=== PATIENT | female | born 1980 | race Caucasian/White ===

== ENCOUNTER 2017-04-11 18:53 | Emergency (ER) | payer OTHER ==
[~2017-04-11] VITALS: Ht 167.6 cm; Wt 48.9 kg
[~2017-04-11 18:53] MED LIST: ALBUAER INH; ATEN-173 PO; BIOT1CAP3 PO; CEPH500C2 PO; CLOB-65 TOP; CYAN500S5 PO; DEXL30CA5 PO; MESA1CAP2 PO; NAPR1TAB9 PO; SALM50AE2 INH; SULF-302 PO; TIOTCAP INH
[2017-04-11 19:06] VITALS: TEMP 36.6; O2SAT 95; Ht 167.6 cm; Wt 48.9 kg
--- NOTE | 2017-04-11 20:11 | DIAGNOSTIC IMAGING REPORT ---
LEFT FOOT 3 VIEWS CLINICAL HISTORY: Left foot pain. FINDINGS: 3 views of the left foot are obtained. No prior studies are available for comparison at the time of dictation. The skeletal structures are well mineralized. No fracture is seen. The joint spaces of the foot are well-maintained. The overlying soft tissues are within normal limits. IMPRESSION: No acute bony abnormality is identified in the left foot. Electronically signed by: Isrrael Bloom M.D. 04/11/2017 8:10 PM Dictated Date/Time: 04/11/2017 8:09 PM
--- NOTE | 2017-04-11 20:26 | EMERGENCY ROOM VISIT NOTE ---
History First contact with patient: 19:17 Chief Complaint: FOOT PAIN Stated Complaint: LT FOOT SWOLLEN, MIDDLE TOE PAIN History of Present Illness The patient is a 37 year old female who presents to the Emergency Room via private vehicle with complaints of "left foot swollen, middle toe pain". The patient states that about a week ago she began with left foot swelling and tenderness between the middle toes of her left foot. She notes that it feels like needles. She states at times it radiated to her knee. She denies any chest pain, shortness of breath, fevers, chills, night sweats, nausea, vomiting or injury. She denies any anticoagulant use. There is no history of DVT. No history of alcohol or drug use. She rates her overall pain currently as a 7/10. Review of Systems A complete 6-point Review of Systems was discussed with the patient, with pertinent positives and negatives listed in the History of Present Illness. All remaining Review of Systems questions can be considered negative unless otherwise specified. Past Medical/Surgical History Medical Problems: (1) Anemia Nos (2) Asthma, Unspecified (3) Intestinal Abscess (4) Intestinal Fistula (5) Rheumatoid Arthritis Family History Cancer Diabetes mellitus FH: heart disease FATHER Hypertension Social History Smoking Status: Current Every Day Smoker Alcohol Use: none Drug Use: none Marital Status: in relationship Housing Status: lives with significant other Occupation Status: disabled Current/Historical Medications Scheduled Atenolol (Tenormin), 25 MG PO QAM B-Complex Vitamins (Vitamin B Complex), 1 TAB PO DAILY Bioflavonoid Products (Vitamin C), 1 TAB PO DAILY Calcium & Phosphorus W/ Vitami (Citracal Calcium Gummies), 1 TAB PO DAILY Cholecalciferol (Vitamin D), 400 INTER.UNIT PO DAILY Cyanocobalamin (Vitamin B-12), 500 MCG PO DAILY Dexlansoprazole (Dexilant), 30 MG PO DAILY Mesalamine (Delzicol), 4 CAP PO QID Pediatric Multiple Vitamin W/ (Flintstones Chewable), 1 TAB PO HS Salmeterol Xinafoate (Serevent Diskus), 1 PUFF INH Q12 Vitamin A-Beta Carotene (Vitamin A), 1 TAB PO DAILY Vitamin E (Vitamin E), 400 INTER.UNIT PO DAILY Scheduled PRN Albuterol Hfa (Ventolin Hfa), 2 PUFFS INH Q6H PRN for SOB/Wheezing Naproxen (Aleve), 440 MG PO for Pain Physical Exam Vital Signs Date Time Temp Pulse Resp B/P (MAP) Pulse Ox O2 Delivery O2 Flow Rate FiO2 04/11/17 22:25 82 110/68 04/11/17 19:06 36.6 112 20 102/65 95 Room Air Physical Exam VITAL SIGNS - Vital signs and nursing notes were reviewed. Stable. Tachycardic. GENERAL -37-year-old female appearing her stated age who is in no acute distress. Communicates well with provider and answers questions appropriately. SKIN - Without rashes. No petechial rashes. There is a faint erythema to a localized 3 cm in diameter region overlying the anterior aspect of the patient' s left middle toes on the foot. There is no warmth. No red streaking. EXTREMITIES - No clubbing or peripheral cyanosis. No pretibial edema present. There is tenderness to palpation between the digits of the left third and fourth toes. She is neurovascularly intact in this region. The tenderness is on the plantar aspect as well as the anterior aspect of the foot. +5/5 strength noted in UE/LE bilaterally. Medical Decision & Procedures ER Provider Diagnostic Interpretation: LEFT FOOT 3 VIEWS CLINICAL HISTORY: Left foot pain. FINDINGS: 3 views of the left foot are obtained. No prior studies are available for comparison at the time of dictation. The skeletal structures are well mineralized. No fracture is seen. The joint spaces of the foot are well-maintained. The overlying soft tissues are within normal limits. IMPRESSION: No acute bony abnormality is identified in the left foot. Electronically signed by: Isrrael Bloom M.D. 04/11/2017 8:10 PM Dictated Date/Time: 04/11/2017 8:09 PM ULTRASOUND LEFT LOWER EXTREMITY VENOUS CLINICAL HISTORY: Left calf pain. COMPARISON STUDY: No priors. TECHNIQUE: Real-time, grayscale, and color Doppler sonography of the deep veins of the left lower extremity was performed from the inguinal crease to the calf. Compression and augmentation were utilized. FINDINGS: There is no sonographic evidence of deep venous thrombosis identified in the left lower extremity. The common femoral, superficial femoral, and popliteal veins are patent and normally compressible. The greater saphenous vein and the profunda femoris vein at the junction with the common femoral vein are clear. The visualized calf veins are patent. IMPRESSION: There is no sonographic evidence of deep venous thrombosis identified in the left lower extremity. Electronically signed by: Isrrael Bloom M.D. 04/11/2017 9:31 PM Dictated Date/Time: 04/11/2017 9:30 PM Medical Decision Patient was seen and evaluated as above. She presents to us today with left foot pain. On exam I'm concerned that she likely has a Steiner's neuroma. X- ray reveals no fracture or dislocation. Ultrasound was negative for DVT. She' ll be treated conservatively. She'll be given crutches and postop shoe to be nonweightbearing. She is to follow with her family doctor. She was educated upon management, educated upon worrisome symptoms which to return, had questions answered prior to discharge, and was discharged home in good condition. On exam there is no evidence to support a cellulitic or infection as there is no break in the integument, and the redness the patient notes has not progressed over the past few days. There are no fevers or chills. In evaluation treatment this patient following differential diagnoses were entertained: Fracture, dislocation, Steiner's neuroma, sialitis DVT, among others. Impression Primary Impression: Foot pain Additional Impression: Steiner's neuroma of left foot Departure Information Dispostion Home / Self-Care Condition GOOD Referrals Kathy Stoddard D.O. (PCP) Marito Teresa D.O. Patient Instructions My [facility] Additional Instructions You have been treated in the Emergency Department for a L foot pain. . For pain control, you can use the following [id number] medicines (if >12 yo): - Regular strength (325mg/tab) Tylenol (acetaminophen) 2 tabs every 4-6 hours as needed. Do not exceed 12 tablets in a 24 hour period. Avoid taking more than 3 grams (3000 mg) of Tylenol per day. This includes any other sources of acetaminophen you may take on a regular basis. - Regular strength (200 mg/tab) Advil (ibuprofen) 1-2 tabs every 4-6 hours as needed. Do not exceed a dose of 3200 mg per day. If this is a recent injury (<24 hrs), ice can be applied to the area of pain for the first 3 days to help decrease pain and inflammation. You have been provided the number for an Orthopaedic Surgeon. You should call this number as soon as possible to establish a follow-up visit from today's Emergency Department visit. Keep the foot brace/splint in place until cleared by Orthopedics. Use the crutches you have been provided to keep ALL weight off of the ankle until weight bearing is tolerable. Return to the Emergency Department if your current symptoms worsen despite treatment course outlined above, or if you develop any of the following symptoms : intractable pain despite aforementioned treatment course or new onset of numbness or tingling of the foot. Problem Qualifiers
[2017-04-11] MEDS ORDERED: CALC1CHW24 PO (21:16)
[2017-04-11] MEDS ORDERED: PEDICHW50 PO (21:16)
[2017-04-11] MEDS ORDERED: CHOL400T PO (21:25)
[2017-04-11] MEDS ORDERED: VITATAB19 PO (21:25)
[2017-04-11] MEDS ORDERED: B-COTAB18 PO (21:25)
[2017-04-11] MEDS ORDERED: VITA1TAB4 PO (21:25)
[2017-04-11] MEDS ORDERED: BIOF500C2 PO (21:25)
--- NOTE | 2017-04-11 21:32 | DIAGNOSTIC IMAGING REPORT ---
ULTRASOUND LEFT LOWER EXTREMITY VENOUS CLINICAL HISTORY: Left calf pain. COMPARISON STUDY: No priors. TECHNIQUE: Real-time, grayscale, and color Doppler sonography of the deep veins of the left lower extremity was performed from the inguinal crease to the calf. Compression and augmentation were utilized. FINDINGS: There is no sonographic evidence of deep venous thrombosis identified in the left lower extremity. The common femoral, superficial femoral, and popliteal veins are patent and normally compressible. The greater saphenous vein and the profunda femoris vein at the junction with the common femoral vein are clear. The visualized calf veins are patent. IMPRESSION: There is no sonographic evidence of deep venous thrombosis identified in the left lower extremity. Electronically signed by: Isrrael Bloom M.D. 04/11/2017 9:31 PM Dictated Date/Time: 04/11/2017 9:30 PM
[2017-04-11] MEDS ORDERED: VNTHFA/IN INH (21:44)
[2017-04-11] MEDS ORDERED: SRVDIN60 INH (21:44)
[2017-04-11] MEDS ORDERED: ASC400 PO (21:44)
[2017-04-11 22:25] VITALS: BP 110/68; PULSE 82
== END 2017-04-11 22:25 | disposition home or self-care (01) ==
LOC: C.EDB 18:55 → C.EDD 22:25
DX: G57.62 Lesion of plantar nerve, left lower limb (principal); M79.672 Pain in left foot; M79.89 Other specified soft tissue disorders; F17.210 Nicotine dependence, cigarettes, uncomplicated; Z79.899 Other long term (current) drug therapy; J45.909 Unspecified asthma, uncomplicated; M06.9 Rheumatoid arthritis, unspecified

== ENCOUNTER 2018-09-23 17:05 | Inpatient (IN) ==
--- OUTSIDE RECORDS SUMMARY | 2018-09-23 17:08 | External Medical Summary | Continuity of Care Document ---
:1980 Author Name Iraida Harper, Provider Address Unavailable Unavailable , Care Team Providers Name Role Phone Case Lucho MEYER Unavailable [email or web address], [email or web address] Unavailable Unavailable Unavailable Unavailable Unavailable Problems Active medical history not documented Allergies and Adverse Reactions Allergy history not documented Medications Medications not documented Procedures Procedures not documented Immunizations Immunizations not documented Plan of Treatment Planned Observations Planned Goals not documented Results No Known Results Results not documented
[2018-09-23] MEDS ORDERED: ALBUT/IPRATROP 3MG/0.5MG NEB 3 ML VIAL NEB STA (17:26)
[2018-09-23 17:55] LABS: Basophils # (auto) 0.08 K/uL (0-0.2); Basophils % (auto) 1.4 %; Eosinophils # (auto) 0.12 K/uL (0-0.5); Eosinophils % (auto) 2.2 %; Hematocrit (blood only) 46.6 % (37-47); Hemoglobin 15.6 g/dL (12.0-16.0); Immature Granulocytes # (auto) 0.01 K/uL (0.00-0.02); Immature Granulocytes % (auto) 0.2 %; Lymphocytes # (auto) 0.98 K/uL (1.2-3.4); Lymphocytes % (auto) 17.7 %; Mean Corpuscular Hgb Conc 33.5 g/dL (32-36); Mean Corpuscular Volume 88.9 fL (80-100); Mean Platelet Volume 9.5 fL (7.4-10.4); Monocytes # (auto) 0.49 K/uL (0.11-0.59); Monocytes % (auto) 8.9 %; Neutrophils # (auto) 3.85 K/uL (1.4-6.5); Neutrophils % (auto) 69.6 %; Platelet Count 282 K/uL (130-400); RDW Coefficient of Variation 15.6 % (11.5-14.5); RDW Standard Deviation 51.4 fL (36.4-46.3); Red Blood Count 5.24 M/uL (4.2-5.4); White Blood Count 5.53 K/uL (4.8-10.8)
[2018-09-23 18:15] LABS: Albumin Level 3.7 gm/dl (3.4-5.0); Calcium 9.5 mg/dl (8.5-10.1); Est GFR (African American) 132.1; Potassium 3.7 mmol/L (3.5-5.1)
[2018-09-23 18:18] LABS: Albumin Globulin Ratio 0.9 (0.9-2); Bilirubin,Total 0.4 mg/dl (0.2-1); Globulin 4.1 gm/dl (2.5-4.0); Total Protein 7.8 gm/dl (6.4-8.2)
--- NOTE | 2018-09-23 18:55 | XRay Report ---
XR chest 2V routine CLINICAL HISTORY: Chest Pain eval for pna COMPARISON STUDY: No previous studies for comparison. FINDINGS: Emphysematous change. No focal infiltrate. No evidence for pneumothorax. Flattened diaphrag ms. IMPRESSION: Emphysematous change. No acute process. The above report was generated using voice recognition software. It may contain grammatical, syntax or spelling errors. Electronically signed by: Adolfo Desir M.D. 09/23/2018 6:53 PM
[2018-09-23] MEDS ORDERED: NITROGLYCERIN 2% OINTMENT 30GM TUBE EXT STA (20:16)
[2018-09-23] MEDS ORDERED: ALBUTEROL HFA 8 GM INHALER INH PRN (22:33)
[2018-09-23] MEDS ORDERED: NITROGLYCERIN SL 0.4 MG/TAB TAB SL PRN (22:33)
[2018-09-23] MEDS ORDERED: ACETAMINOPHEN 325 MG TAB PO PRN (22:33)
--- NOTE | 2018-09-23 23:37 | History and Physical Report ---
DATE OF ADMISSION: 09/23/2018 CHIEF COMPLAINT: Chest pain and weight loss. HISTORY OF PRESENT ILLNESS: This is a 38-year-old female with past medical history significant for severe COPD, Crohn's disease with complication of small and large intestine fistula, status post colostomy, migraines, bipolar 1 disorder, ongoing tobacco use disorder, history of renal calculi, history of hypertension, who presents with chest pain starting last night. The patient states chest pain which is all over the chest, radiating to the back, about 8/10 in severity. She was resting when this happened and it was not getting better, so she came to the ER. She is also losing weight since June, she has gone from 95 pounds to 73 pounds and her home health nurse advised to come to the hospital. Denies any nausea, vomiting. No sweating, no dizziness, no headache, no blurred visions. No ear ache, no runny nose, no sore throat, no difficulty swallowing. Appetite is good. She is actually eating fine. No nausea, no abdominal pain. Normal bowel and bladder movements. No blood in the stools or black stools, no hematuria, no burning micturition. No swelling of the legs. Ambulates okay. Lives with her . She is on mesalamine and Remicade every 6 weeks for Crohn's disease, but she has not taken Remicade since last April because her car broke and she has no transport available. She has a rash around the colostomy bag she says since March and she is following with dermatology and treated for dermatitis and also for fungal infection and bacterial infection, but that is not getting better. There is question of skin cancer, but nothing mentioned about in EPIC.. Next appointment with dermatology seems to be in November 2018. She says she is losing weight though she is eating okay since last June. Denies any fever or chills. Has chronic cough, but does not bring any phlegm out. Currently resting comfortably and hemodynamically stable. Nitro paste helped chest pain. Her first point of care troponin was negative, her second point of care troponin came back elevated at 0.06. ALLERGIES: CODEINE, METRONIDAZOLE, CIPRO, LATEX, PENICILLIN, ASPIRIN. PAST MEDICAL HISTORY: As mentioned above. PAST SURGICAL HISTORY: Colonoscopy with biopsy, colostomy, ligation of oviduct, partial colectomy with exploratory laparotomy with lysis of adhesions, right hemicolectomy with primary anastomosis, drainage of abdominal wall abscess left lower quadrant, removal of rectum and colon in 2013. MEDICATIONS: The patient is currently on atenolol 25 mg p.o. daily, Incruse Ellipta 62.5 mcg inhalation 1 puff daily, Remicade infusions every 6 weeks, mesalamine DR 1600 mg p.o. t.i.d., Ventolin 2 puffs every 4 hours p.r.n., gabapentin 300 mg p.o. at bedtime, Zoloft 25 mg p.o. daily, Imitrex p.r.n., triamcinolone ointment apply to rash to stomach 2 times daily, Breo Ellipta 1 puff inhalation daily, oxygen as directed, prazosin 2 mg daily, Seroquel 25 mg p.o. daily, vitamin C daily, vitamin D 400 units daily, vitamin E 400 units daily. FAMILY HISTORY: Significant for father has hypertension; mother has hypertension, bipolar depression; brother has anemia; maternal grandfather has asthma; son has seizures. SOCIAL HISTORY: She is , lives with her . Smokes half pack a day for the last 24 years. No alcohol use, no drug use. REVIEW OF SYMPTOMS: As per HPI. Rest of the review of systems negative. PHYSICAL EXAMINATION: GENERAL: Reveals the patient to be thin and frail, not in acute distress. VITAL SIGNS: Temperature is afebrile, pulse 74, respiratory rate 20, blood pressure 106/61, oxygen 99% on 2 liters. HEENT: No pallor, no icterus. Pupils equal, round, reactive to light. NECK: No JVD, no neck masses, no carotid bruits. CARDIOVASCULAR: S1, S2 heard, regular rate and rhythm, no murmur, no gallop. RESPIRATORY SYSTEM: Normal AP diameter. No accessory muscle use. No wheezing, no crackles. ABDOMEN: Soft, bowel sounds present. No distention. Erythematous indurated rash seen around the colostomy bag. EXTREMITIES: No edema, no erythema. LABORATORY DATA: WBC 5.5, hemoglobin 15.6, hematocrit 46.6, platelets 282. Sodium 142, potassium 3.6, chloride 107, bicarbonate 29, BUN 6, creatinine 0.6, serum glucose 81, calcium 9.5, total bilirubin 0.4, AST 17, ALT 12, alkaline phosphatase 68, lipase 96. IMAGING DATA: Chest x-ray: Emphysematous change, no acute process. EKG: Normal sinus rhythm with sinus arrhythmia at the rate of 70. No significant change from previous EKG. ASSESSMENT AND PLAN: This is a 38-year-old female who presents with chest pain and also weight loss. 1. Chest pain. All over chest radiating to her back, going on since the last night. Nitro is helping. EKG is unremarkable. Point of care troponin is 0.06. We will follow serial cardiac enzymes.if trending up will place on IV heparin. We will also get echo. Cardiac consult in the a.m. We will keep n.p.o. after midnight. Closely monitor. We will also get CTA of the the chest to rule out any other causes. 2. Weight loss. The patient has Crohn's disease, on Remicade and mesalamine, status post colostomy. Did not take Remicade since last April. Lost weight about 15 to 16 pounds since last June. We will consult GI. We will follow with CAT scan of abdomen and pelvis as there is also skin rash surrounding the colostomy bag of unclear etiology. 3. Skin rash surrounding colostomy bag. Follows with dermatology. Treated for atopic dermatitis and also for infection, but nothing is working. Needs close followup with dermatology and may need biopsy. 4. History of nightmares On prazosin. 5. History of severe chronic obstructive pulmonary disease, still smokes and needs counseling. Continue home inhalers. Currently stable. 6. History of Crohn's disease, mesalamine and Remicade, not taken the Remicade since last April. Consult GI for further recommendations. 7. History of hypertension, continue atenolol. 8. History of migraine, Imitrex p.r.n. 9. Bipolar disorder, continue her home Seroquel. 10. Deep venous thrombosis prophylaxis, sequential compression devices for now. 11. Disposition: Observation in med/surg tele. Level 1 full code. MTDD
--- NOTE | 2018-09-23 23:45 | Emergency Department Note ---
Entered by Cindy Horton acting as a scribe for History of Present Illness General Chief complaint: Chest Pain Stated complaint: CHEST PAIN Source: patient History of Present Illness Onset (ago): day(s) 2 Location: chest Radiation: back Severity: similar to prior episodes Pain Consistency: + intermittent Current Pain Intensity: 7 Quality: + sharp and + other (tight) Relieved By: not by medication (Nitro ) Exacerbated By: + other (cough) Associated symptoms: + cough (dry), + shortness of breath and + other (negative leg swelling or pain; ) Treatments prior to arrival: other (Nitro) The patient is a 38 year old female who presents to the Emergency Room with complaints of intermittent chest pain that began 2 days prior to arrival. The patient describes this pain as tight and sharp, and states that this radiates to her back. She rates her pain at a 7/10. The patient states that her episodes of chest pain last for about an hour. She states that she received Nitro by EMS, but states that this did not relieve her symptoms. The patient states that this is similar to a prior episode of symptoms about one year ago, and states that this resolved on its own. She states that she is short of breath currently. The patient states that her symptoms are exacerbated by coughing. The patient states that she currently has a dry cough. She denies leg swelling or pain, vomiting, abdominal pain, and blood in her stool.The patient states that she had a previous "slight heart attack" in 2010 and states that her father of a heart attack at the age of 52. She states that she never had a cardiac catheterization, but states that she had a normal stress test at that time. The patient states that her home health nurse wanted her to be evaluated by her GI doctor as she has been losing weight recently and her ileostomy bag has been leaking since June. The patient states that she has a history of COPD and asthma, and states that she is on 2L of oxygen as needed. Home Medications Home Medications Medication Instructions Recorded Confirmed Type albuterol sulfate [Ventolin HFA] 2 puff INHALATION Q6H PRN 09/23/18 09/23/18 History ascorbic acid (vitamin C) [Vitamin 0 mg PO DAILY 09/23/18 09/23/18 History C] atenolol 25 mg PO QAM 09/23/18 09/23/18 History calcium-vitamin D3-vitamin K 1 tab PO DAILY 09/23/18 09/23/18 History [Citracal Chew] cholecalciferol (vitamin D3) 400 unit PO DAILY 09/23/18 09/23/18 History [Vitamin D3] cyanocobalamin (vitamin B-12) 500 mcg PO DAILY 09/23/18 09/23/18 History [Vitamin B-12] dexlansoprazole [Dexilant] 30 mg PO DAILY 09/23/18 09/23/18 History fluticasone furoate-vilanterol 1 inh INHALATION DAILY 09/23/18 09/23/18 History [Breo Ellipta] gabapentin 300 mg PO HS 09/23/18 09/23/18 History hydroxyzine pamoate [Vistaril] 25 mg PO TID PRN 09/23/18 09/23/18 History infliximab [Remicade] 0 mg IV UD 09/23/18 09/23/18 History mesalamine [Delzicol] 1,600 mg PO TID 09/23/18 09/23/18 History pediatric multivitamin no.49 1 tab PO HS 09/23/18 09/23/18 History [Flintstones Gummies] prazosin 2 mg PO HS 09/23/18 09/23/18 History quetiapine 25 mg PO HS 09/23/18 09/23/18 History quetiapine 200 mg PO HS 09/23/18 09/23/18 History sertraline [Zoloft] 25 mg PO QAM 09/23/18 09/23/18 History sumatriptan succinate 50 mg PO UD PRN 09/23/18 09/23/18 History vitamin A 0 unit PO DAILY 09/23/18 09/23/18 History vitamin B complex 1 tab PO DAILY 09/23/18 09/23/18 History vitamin E 400 unit PO DAILY 09/23/18 09/23/18 History Allergies Allergy/AdvReac Type Severity Reaction Status Date / Time codeine Allergy Severe SOB, Verified 09/23/18 18:21 NAUSEA -- MORPHINE OK, TAKES LORTAB AT HOME metronidazole Allergy Severe chest pain Verified 09/23/18 18:21 Cipro Allergy Unknown "I GET Verified 04/20/15 21:21 SICK AND CAN'T BREATHE RIGHT." ciprofloxacin Allergy Unknown "I GET Verified 09/23/18 18:21 SICK AND CAN'T BREATHE RIGHT." latex Allergy Unknown RASH Verified 09/23/18 18:21 Penicillins Allergy Unknown CHEST Unverified 09/23/18 18:21 TIGHTNESS aspirin AdvReac Mild GI DISTRESS Verified 09/23/18 18:21 IRON INFUSIONS Allergy Unknown Chest Uncoded 09/23/18 18:21 tightness and SOB. Past Med/Surg History Medical History Crohn's disease (Chronic) Social History Beliefs That Will Affect Care: None Current Living Situation: Spouse Other Information That Helps Us Care for You: No Feels Safe at Home: Yes Safety Concerns: Feels Safe At This Time Smoking Status: Current every day smoker Tobacco Type: cigarettes Cigarettes Per Day: 12 Do You Dip or Chew Tobacco: No Tobacco Cessation Education Requested by Patient: No Hx Alcohol Use: No Hx Substance Use: No Review of Systems See HPI for pertinent positives & negatives. and A total of 10 systems reviewed and were otherwise negative Physical Exam Vital Signs Vital Signs - 24 hr 09/23/18 17:10 09/23/18 17:13 09/23/18 17:20 Sepsis Recent Fever Within 48 Hours Sepsis Action Taken by Nursing Pulse Rate 78 70 76 Pulse Rate from SpO2 Sensor 75 67 77 Respiratory Rate 17 20 20 Respiratory Effort / Characteristics Respiratory Depth Blood Pressure 124/82 Blood Pressure Mean 96 Pulse Oximetry 97 99 99 Oxygen Delivery Method Oxygen Flow Rate 09/23/18 17:23 09/23/18 17:30 09/23/18 17:31 Sepsis Recent Fever Within 48 Hours No Sepsis Action Taken by Nursing No Action Required Pulse Rate 66 77 Pulse Rate from SpO2 Sensor Respiratory Rate 18 21 Respiratory Effort / Characteristics Non-Labored Respiratory Depth Normal Blood Pressure 124/82 Blood Pressure Mean 96 Pulse Oximetry 98 98 Oxygen Delivery Method Room Air Nasal Cannula Oxygen Flow Rate 2 09/23/18 17:36 09/23/18 17:40 09/23/18 17:50 Sepsis Recent Fever Within 48 Hours Sepsis Action Taken by Nursing Pulse Rate 69 77 Pulse Rate from SpO2 Sensor 70 77 Respiratory Rate 16 23 25 H Respiratory Effort / Characteristics Non-Labored Spontaneous Respiratory Depth Blood Pressure Blood Pressure Mean Pulse Oximetry 100 100 100 Oxygen Delivery Method Nasal Cannula Oxygen Flow Rate 2 09/23/18 18:00 09/23/18 18:10 09/23/18 18:20 Sepsis Recent Fever Within 48 Hours Sepsis Action Taken by Nursing Pulse Rate 77 79 77 Pulse Rate from SpO2 Sensor 78 80 76 Respiratory Rate 26 H 23 21 Respiratory Effort / Characteristics Respiratory Depth Blood Pressure Blood Pressure Mean Pulse Oximetry 100 99 100 Oxygen Delivery Method Oxygen Flow Rate 09/23/18 18:30 09/23/18 18:49 09/23/18 18:50 Sepsis Recent Fever Within 48 Hours Sepsis Action Taken by Nursing Pulse Rate 75 72 80 Pulse Rate from SpO2 Sensor 73 69 81 Respiratory Rate 16 20 21 Respiratory Effort / Characteristics Respiratory Depth Blood Pressure Blood Pressure Mean Pulse Oximetry 99 99 99 Oxygen Delivery Method Oxygen Flow Rate 09/23/18 18:55 09/23/18 19:00 09/23/18 19:30 Sepsis Recent Fever Within 48 Hours Sepsis Action Taken by Nursing Pulse Rate 78 83 80 Pulse Rate from SpO2 Sensor 81 78 79 Respiratory Rate 22 21 26 H Respiratory Effort / Characteristics Respiratory Depth Blood Pressure 117/75 Blood Pressure Mean 89 Pulse Oximetry 99 97 99 Oxygen Delivery Method Oxygen Flow Rate 09/23/18 20:00 09/23/18 20:26 09/23/18 20:30 Sepsis Recent Fever Within 48 Hours Sepsis Action Taken by Nursing Pulse Rate 92 H 74 Pulse Rate from SpO2 Sensor 91 H 76 72 Respiratory Rate 29 H 22 20 Respiratory Effort / Characteristics Respiratory Depth Blood Pressure 116/74 106/61 Blood Pressure Mean 88 76 Pulse Oximetry 98 99 99 Oxygen Delivery Method Oxygen Flow Rate Constitutional: Vital signs reviewed. Eyes: Pupils are equal round reactive to light. Conjunctiva are noninjected. ENT: Pharynx is clear without erythema or exudate. Mucous membranes are moist. Neck supple without meningeal signs. Respiratory: Scattered expiratory wheezing bilaterally. Breath sounds are equal bilaterally. Cardiovascular: Regular rate and rhythm. No rubs or gallops. GI: Soft, nondistended and nontender. Bowel sounds are present. Ileostomy in right lower quadrant with surrounding erythema with satellite lesions and scaling with well-demarcated borders. Musculoskeletal: No peripheral edema. No lower extremity tenderness. Integumentary: No cyanosis. Neurological: The patient is awake and alert. No focal deficits. Psychiatric: Normal affect. Course 171: Past medical records reviewed. The patient was evaluated in room C12B. A complete history and physical exam was performed. 1918: Upon reevaluation, the patient has minimal wheezing. She states that she has very slight chest pain at this time. I discussed her test results with her. She states that her rash has been there for a very long time. The patient states that she has seen a Hair Spring Cutter for this rash who has treated her for a fungal and bacterial infection, and is now concerned for skin cancer. The patient will follow up with this Hair [employer] Cutter for this rash. When the nurse went to replace the patient's ileostomy, it appeared to be functioning well so it was not replaced. 2026: I updated the patient on her test results. The patient is agreeable to further evaluation. 2028: I discussed the case with Dr. Estes Hospitalist who accepts the patient for further evaluation. Consultations Consultation #1: I discussed the case with Dr. Estes [facility] who accepts the patient for further evaluation. Time: 20:29 Administered Medications Discontinued Medications Albuterol (Duoneb) 3 ml NEB NOW STA Stop: 09/23/18 17:27 Last Admin: 09/23/18 17:35 Dose: 3 ml Documented by: [id number] Nitroglycerin (Nitro-Bid 2%) 1 inch EXT NOW STA Stop: 09/23/18 20:17 Last Admin: 09/23/18 20:27 Dose: 0.5 inch Documented by: [id number] Medical Decision Making Differential Diagnosis Differential diagnoses include pneumonia, pleurisy, COPD exacerbation, ACS, tinea coporis, bronchitis, and others were considered. Medical Records Attestation: I reviewed the patient's medical records. (No recent pertinent visits. ) Home Medications Current Medication List: was personally reviewed by me Laboratory Data Attestation: I reviewed the patient's lab results. Result diagrams: 09/23/18 17:42 09/23/18 17:42 Lab Results 09/23/18 09/23/18 09/23/18 Range/Units 17:42 17:42 17:48 WBC 5.53 (4.8-10.8) K/uL RBC 5.24 (4.2-5.4) M/uL Hgb 15.6 (12.0-16.0) g/dL Hct 46.6 (37-47) % MCV 88.9 (80-100) fL MCH 29.8 (25-34) pg MCHC 33.5 (32-36) g/dL RDW Std Deviation 51.4 H (36.4-46.3) fL RDW Coeff of Kaylan 15.6 H (11.5-14.5) % Plt Count 282 (130-400) K/uL MPV 9.5 (7.4-10.4) fL Immature Gran % (Auto) 0.2 % Neut % (Auto) 69.6 % Lymph % (Auto) 17.7 % [place] % (Auto) 8.9 % Eos % (Auto) 2.2 % Baso % (Auto) 1.4 % Immature Gran # (Auto) 0.01 (0.00-0.02) K/uL Neut # (Auto) 3.85 (1.4-6.5) K/uL Lymph # (Auto) 0.98 L (1.2-3.4) K/uL [place] # (Auto) 0.49 (0.11-0.59) K/uL Eos # (Auto) 0.12 (0-0.5) K/uL Baso # (Auto) 0.08 (0-0.2) K/uL Sodium 142 (136-145) mmol/L Potassium 3.7 (3.5-5.1) mmol/L Chloride 107 (98-107) mmol/L Carbon Dioxide 29 (21-32) mmol/L Anion Gap 6.0 (3-11) BUN 6 L (7-18) mg/dl Creatinine 0.60 (0.6-1.2) mg/dl Est Cr Clr Drug Dosing 70.0 ml/min Est GFR ( Amer) 132.1 Est GFR (Non-Af Amer) 114.0 BUN/Creatinine Ratio 10.0 (10-20) Glucose 81 (70-99) mg/dl Calcium 9.5 (8.5-10.1) mg/dl Total Bilirubin 0.4 (0.2-1) mg/dl AST 17 (15-37) U/L ALT 12 (12-78) U/L Alkaline Phosphatase 68 (45-117) U/L POC Troponin I < 0.03 (0-0.045) ng/ml Total Protein 7.8 (6.4-8.2) gm/dl Albumin 3.7 (3.4-5.0) gm/dl Globulin 4.1 H (2.5-4.0) gm/dl Albumin/Globulin Ratio 0.9 (0.9-2) Lipase 96 (73-393) U/L 09/23/18 Range/Units 19:50 WBC (4.8-10.8) K/uL RBC (4.2-5.4) M/uL Hgb (12.0-16.0) g/dL Hct (37-47) % MCV (80-100) fL MCH (25-34) pg MCHC (32-36) g/dL RDW Std Deviation (36.4-46.3) fL RDW Coeff of Kaylan (11.5-14.5) % Plt Count (130-400) K/uL MPV (7.4-10.4) fL Immature Gran % (Auto) % Neut % (Auto) % Lymph % (Auto) % [place] % (Auto) % Eos % (Auto) % Baso % (Auto) % Immature Gran # (Auto) (0.00-0.02) K/uL Neut # (Auto) (1.4-6.5) K/uL Lymph # (Auto) (1.2-3.4) K/uL [place] # (Auto) (0.11-0.59) K/uL Eos # (Auto) (0-0.5) K/uL Baso # (Auto) (0-0.2) K/uL Sodium (136-145) mmol/L Potassium (3.5-5.1) mmol/L Chloride (98-107) mmol/L Carbon Dioxide (21-32) mmol/L Anion Gap (3-11) BUN (7-18) mg/dl Creatinine (0.6-1.2) mg/dl Est Cr Clr Drug Dosing ml/min Est GFR ( Amer) Est GFR (Non-Af Amer) BUN/Creatinine Ratio (10-20) Glucose (70-99) mg/dl Calcium (8.5-10.1) mg/dl Total Bilirubin (0.2-1) mg/dl AST (15-37) U/L ALT (12-78) U/L Alkaline Phosphatase (45-117) U/L POC Troponin I 0.06 H (0-0.045) ng/ml Total Protein (6.4-8.2) gm/dl Albumin (3.4-5.0) gm/dl Globulin (2.5-4.0) gm/dl Albumin/Globulin Ratio (0.9-2) Lipase (73-393) U/L Imaging Data Radiologist's Impression: Radiology results as stated below per my review and the radiologist's interpretation: XR chest 2V routine CLINICAL HISTORY: Chest Pain eval for pna COMPARISON STUDY: No previous studies for comparison. FINDINGS: Emphysematous change. No focal infiltrate. No evidence for pneumothorax. Flattened diaphragms. IMPRESSION: Emphysematous change. No acute process. The above report was generated using voice recognition software. It may contain grammatical, syntax or spelling errors. Electronically signed by: Adolfo Desir M.D. 09/23/2018 6:53 PM ECG Data Attestation: I personally reviewed and interpreted this ECG as follows: Indication: chest pain Rate (beats per minute): 60 Rhythm: sinus rhythm Findings: no PVC and no ST elevation Additional Comments: Repeat ECG: Normal sinus rhythm with a rate of 70. Right atrial enlargement. No ST elevation or PVCs. Blood Pressure Blood Pressure Findings: Normal blood pressure MDM Narrative I did evaluate the patient as noted above. The patient is presenting with atypical chest pain. She describes it as sharp and not exertional. It is worse when she takes a deep breath. Here. I did give her a DuoNeb. IV access was established. The patient was placed on a continuous bladder blower. I did order and personally review the patient's 12-lead EKG as described above. Her twelve-lead EKG does not show any acute ischemia. I did order and personally reviewed the images of the patient's chest x-ray as described above. Her chest x-ray does not show any signs of pneumonia. She does have emphysematous changes. I did order and review the patient's blood work as noted in the electronic medical record. Her white count is not elevated. She is not anemic. Initial troponin is negative. I did reassess the patient. Her wheezing is diminished on reexamination. I did recommend a second troponin. A second troponin was obtained and it was slightly elevated. A repeat twelve-lead EKG did not show any signs of acute ischemia. She was given Nitropaste. I did recommend hospitalization for further care and evaluation. She does have a rash around her ileostomy. I did have the nurse evaluate the ileostomy bag which appeared not to be leaking and in good order. She states she has had this rash for a long time and is followed by a bookkeeping teacher who has treated her for a fungal infection, bacterial infection and now states that it may be cancer. On my examination the lesion does appear to be tinea corporis with well-demarcated borders, scaling and satellite lesions. She will be further evaluated in the hospital. I did discuss the case with the hospitalist and rn case manager. Impression & Plan Precordial chest pain, Elevated troponin, Rash, COPD exacerbation Discharge Plan Visit Data *Final* Discharge Date/Time: 09/23/18 22:03 Chief Complaint: Chest Pain Stated Complaint: CHEST PAIN ED Provider: íVctor Calvillo Discharge Problem: Precordial chest pain, Elevated troponin, Rash, COPD exacerbation Patient Disposition: Admitted As Inpatient Discharge Instructions Interventions: ED Discharge Assessment Last Done: 09/23/18 22:03 The darianibe's documentation has been prepared under my direction and personally reviewed by me in its entirety. I confirm that the note above accurately reflects all work, treatment, procedures, and medical decision making performed by me.
[2018-09-24] MEDS: NICOTINE 21 MG/24 HR TDSY TD SCH (00:12)
[2018-09-24] MEDS ORDERED: OPTIRAY 320 125ml IV PRN (01:12)
[2018-09-24] MEDS: MoRPHine SULFATE 2 MG/ML CARP IV PRN ×2 (04:49→08:19)
[2018-09-24 05:00] LABS: Basophils # (auto) 0.06 K/uL (0-0.2); Basophils % (auto) 1.2 %; Eosinophils # (auto) 0.16 K/uL (0-0.5); Eosinophils % (auto) 3.1 %; Hemoglobin 11.6 g/dL (12.0-16.0); Lymphocytes # (auto) 1.05 K/uL (1.2-3.4); Lymphocytes % (auto) 20.6 %; Mean Corpuscular Hgb Conc 32.2 g/dL (32-36); Mean Corpuscular Volume 88.7 fL (80-100); Mean Platelet Volume 9.5 fL (7.4-10.4); Monocytes # (auto) 0.56 K/uL (0.11-0.59); Neutrophils # (auto) 3.27 K/uL (1.4-6.5); Neutrophils % (auto) 64.1 %; Platelet Count 253 K/uL (130-400); RDW Coefficient of Variation 15.6 % (11.5-14.5); RDW Standard Deviation 50.4 fL (36.4-46.3); Red Blood Count 4.06 M/uL (4.2-5.4)
[2018-09-24 05:14] LABS: BUN Creatinine Ratio 14.5 (10-20); Blood Urea Nitrogen 11 mg/dl (7-18); Calcium 8.1 mg/dl (8.5-10.1); Carbon Dioxide 29 mmol/L (21-32); Chloride 107 mmol/L (98-107); Creatinine Clr Calc Pharmacy 58.4 ml/min; Est GFR (African American) 121.4; Est GFR (Non-African American) 104.8; Glucose 76 mg/dl (70-99); Potassium 3.9 mmol/L (3.5-5.1); Sodium 142 mmol/L (136-145); Troponin I < 0.015 ng/ml (0-0.045)
--- NOTE | 2018-09-24 07:34 | CT Scan Report ---
CHEST, ABDOMEN, AND PELVIS CTA for AORTIC DISSECTION CT DOSE: 671.00 mGy.cm HISTORY: Atypical chest pain radiating to back. dissection? TECHNIQUE: Multiaxial CT images of the chest, abdomen, and pelvis were performed both before and afte r the intravenous administration of contrast to evaluate the aorta. Maximal intensity projection imag es were also obtained. A dose lowering technique was utilized adhering to the principles of ALARA. COMPARISON STUDY: Abdomen and pelvis CT 06/26/2014. FINDINGS: Noncontrast imaging through the thoracic aorta shows no evidence for an nature mural hemato ma. The thoracic aorta is normal in course and caliber with no evidence for dissection. The central p ulmonary arteries are patent. Small amount of mucoid material within the trachea. Remaining central a irways are patent. Moderate emphysema. No pleural effusions. No pneumothorax. Tiny linear sclerotic d ensity within the periphery of the lingula. There is a 5 mm nodule within the right upper lobe cyber transport systems specialist iorly on image 97. No focal lung consolidations to suggest pneumonia. No suspicious lytic or blastic osseous lesions. No mediastinal or hilar lymphadenopathy. The heart is normal in size. No pericardial effusion. No pneumoperitoneum. No pneumatosis. No suspicious lytic or blastic osseous lesions. Mild focal perip ortal edema within the anterior segment of the right hepatic lobe. This remains unchanged. No hepatic or splenic masses. The pancreas, gallbladder, and adrenal glands are unremarkable. The main portal v ein is patent. No retroperitoneal lymphadenopathy. Subcentimeter hypodense lesions within the kidneys are too small to characterize but favor cysts. No hydronephrosis. The bladder is unremarkable. Metal lic wires noted within and adjacent to the rectum. This is similar compared to the prior study and is consistent with postoperative change. 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 This has progressed in the interval. There are 3 new small peripheral enhan cing hypodense foci within the fundus and posterior wall of the uterus. The largest is seen on image 278 and measures 1.5 cm. These are new from the prior study and could represent fibroids. However, sm all intramural uterine abscesses are favored. Subtotal colectomy with right lower quadrant ileostomy. The distal 10 cm of the ileum extending to the ileostomy demonstrates mucosal hyperenhancement and m ild wall thickening consistent with active inflammatory change. There is also a small focus of inflam matory change/phlegmon adjacent to the distal ileum on image 221 measuring 1 cm. This could represent a small developing abscess. Ileocolic lymphadenopathy is likely reactive. No evidence for bowel obst ruction.. There is a 2.5 cm left ovarian cyst. IMPRESSION: 1. The distal 10 cm of the ileum extending to the ileostomy demonstrates mucosal hyperenhancement and mild wall thickening consistent with active inflammatory change. There is also a small focus of infl ammatory change/phlegmon adjacent to the distal ileum measuring 1 cm. This could represent a small de veloping abscess. 2. Interval progression of the rectovaginal fistula. There has also been development of 3 small perip heral enhancing hypodense foci within the fundus and posterior wall of the uterus with the largest me asuring 1.5 cm. These are new from the prior study and could represent fibroids. However, small intra mural uterine abscesses are favored. 3. No evidence for an aortic dissection. 4. Emphysema. 5. A 5 mm nodule within the right upper lobe. 6. These findings were discussed with Dr. Rea at 7:40 AM on 09/24/2018. Please refer to below summary of Fleischner criteria recommendations for follow-up of incidental CT n odules (Tiesha Morales, Guidelines for management of small pulmonary nodules detected on CT scans: A sta tement from the Fleischner Society, Radiology 237: [phone].) SOLID NODULES Solitary nodule size: <6 mm * Low risk patients: no follow-up needed * high risk patients: optional CT at 12 months Solitary nodule size: 6-8 mm * Low risk patients: follow-up at 6-12 months, then consider further follow-up at 18-24 months * high risk patients: initial follow-up CT at 6-12 months and then at 18-24 months if no change Solitary nodule size: >8 mm * either low or high risk patients - consider follow-up CT at 3 months, and/or CT-PET, and/or biopsy Multiple nodules size: <6 mm * Low risk patients: no routine follow-up * high risk patients: optional CT at 12 months Multiple nodules size: 6-8 mm * Low risk patients: follow-up at 3-6 months, then consider further follow-up at 18-24 months * high risk patients: follow-up at 3-6 months, then at 18-24 months if no change Multiple nodules size: >8 mm * Low risk patients: follow-up at 3-6 months, then consider further follow-up at 18-24 months * high risk patients: follow-up at 3-6 months, then at 18-24 months if no change Note: newly detected indeterminate nodule in persons 35 years of age or older. * Low risk patients: minimal or absent history of smoking and/or other known risk factors * high risk patients: history of smoking or of other known risk factors (e.g. first degree relative with lung cancer, or exposure to asbestos, radon, uranium) * if a nodule up to 8 mm is partly solid or is ground glass further follow-up is required after 24 m onths to exclude possible slow growing adenocarcinoma (NEGAR) SUBSOLID NODULES Solitary pure ground-glass nodule * nodule size <6 mm - no CT follow-up required * nodule size >=6 mm - follow-up CT at 6-12 months, then every 2 years until 5 years Solitary part-solid nodule * nodule size <6 mm - no CT follow-up required * nodule size >=6 mm - follow-up CT at 3-6 months. If unchanged, and solid component remains <6 mm, then annual follow-up for 5 years Multiple subsolid nodules * nodule size <6 mm - follow-up CT at 3-6 months, consider further follow-up at 2 and 4 years if sta ble * nodule size >=6 mm - follow-up CT at 3-6 months, subsequent management based on the most suspiciou s nodule(s) Electronically signed by: Emeka Dickson M.D. 09/24/2018 7:51 AM
[2018-09-24] MEDS: MESALAMINE 400 MG CAPDR PO SCH ×3 (08:20→20:45)
[2018-09-24] MEDS: PANTOprazole 40 MG TAB PO SCH (08:20)
[2018-09-24] MEDS: TOCOPHERYL, DL-ALPHA 400 UNITS CAP PO SCH (08:20)
[2018-09-24] MEDS: CYANOCOBALAMIN 500 MCG TABLET (VITAMIN B-12) PO SCH (08:20)
[2018-09-24] MEDS: CHOLECALCIFEROL (VITAMIN D) 400 UNITS TABLET PO SCH (08:20)
[2018-09-24] MEDS: SERTRALINE HCL 50 MG TABLET PO SCH (08:20)
[2018-09-24] MEDS: ATENOLOL 25 MG TABLET PO SCH (08:20)
[2018-09-24] MEDS: VITAMIN B COMPLEX TAB PO SCH (08:20)
[2018-09-24] MEDS ORDERED: CALCIUM VITAMIN D3 VITAMIN K PO SCH (09:00)
--- NOTE | 2018-09-24 09:02 | Cardiology Consultation ---
Date of Consultation September 24, 2018 Assessment & Plan (1) Precordial chest pain: Very atypical chest discomfort, clearly reproducible with palpation of the chest wall Elevated point of care troponin with subsequent negative Troponin I x 2 EKG's without acute changes Normal resting echocardiography Recommend pharmacological stress testing given risk factors (chart history of hypertension, chronic tobacco abuse, family history) and the elevated troponin. (2) Palpitation: Controlled when taking atenolol as prescribed. (3) Tobacco abuse: Cessation advised (4) Hypertension: Blood pressures are well controlled on inpatient monitoring Follow Supervising Physician Co-Signing Physician Notes Patient seen and examined with Adolfo Osborn PA-C. Agree with findings and assessment as above. Pt is suffering from nonischemic precordial chest pain with a possible drug seeking component. Given multiple risk factors outpatient ischemic work up would be reasonable. Pt is to call Suzy Reyes to arrange outpatient Lexiscan nuclear stress test at a time that is convienent for her. No further cardiac testing at this time. Ok to d/c from cardiac standpoint. History of Present Illness Reason for Consultation: Chest pain Requesting Physician: Jaime Negron MD Attending Physician: Sergio Rea MD History of Present Illness Dolores Flanagan is a 38-year-old female who is being seen today at the request of Dr. Negron. Reason for consultation is chest pain. Mrs. Flanagan notes being seen in the [facility] on Saturday due to a leaking colostomy bag, not having supplies at home. She was discharged from [facility] with Home Health services who noted that she has not been taking her medications due to lack of funds and lack of transportation. The living conditions were noted to be deplorable, unlivable. Due to weight loss (20 pounds) and the GI issues she was referred by her PCP to [facility] for inpatient evaluation and treatment. Upon presentation she noted chest discomfort. The patient describes, to me, having chest discomfort that has waxed and waned though is been pretty much constant since June. She describes multiple hospitalizations in [place] due to chest pain, difficulty breathing, COPD exacerbations, stress, GI issues. The patient's chest discomfort is bilateral upper outer sharp jabs that comes and goes without rhyme or reason. Again it has waxed and waned but has been constant since June. It seems to radiate into the back. Coughing makes it worse. Touching the area will aggravate the discomfort as well. She notes minimal to no relief with morphine and requests Dilaudid. The patient's initial [id number] troponin was normal at less than 0.03. Her second [id number]-[id number] troponin was elevated at 0.06. Follow-up troponin I's were negative x2, less than 0.015. EKG on presentation revealed normal sinus rhythm at 70 bpm with sinus arrhythmia, right atrial enlargement, borderline EKG. Repeat EKG on September 23, 2018 showed normal sinus rhythm at 60 with sinus arrhythmia, right atrial enlargement, borderline EKG. When compared to prior EKGs from June 2014, there is no significant change. At this morning, September 24, 2018, reveals normal sinus rhythm at 68 bpm with right atrial enlargement. Resting echocardiography earlier this morning, September 24, 2018, was a normal study. Nuclear stress testing was normal last in April 2017 in [place]. Past Medical and Surgical History: Severe COPD Chronic tobacco abuse, ongoing, 1/2 ppd Crohn's disease, status post colostomy Migraine headaches, on Imitrex Bipolar disorder History of renal calculi Chart history of hypertension Vitamin D deficiency GERD Family History: Father with an IA at the age of 52. Paternal grandfather with an IA at the age of 54. Paternal uncle with an IA at the age of 53. Mother with hypertension, bipolar. Social History: Smoker, 1/2 pack/day. No alcohol. No illegal drug use. . No children. Lives in [facility] with her . 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 Allergies Allergy/AdvReac Type Severity Reaction Status Date / Time codeine Allergy Severe SOB, Verified 09/23/18 18:21 NAUSEA -- MORPHINE OK, TAKES LORTAB AT HOME metronidazole Allergy Severe chest pain Verified 09/23/18 18:21 Cipro Allergy Unknown "I GET Verified 04/20/15 21:21 SICK AND CAN'T BREATHE RIGHT." ciprofloxacin Allergy Unknown "I GET Verified 09/23/18 18:21 SICK AND CAN'T BREATHE RIGHT." latex Allergy Unknown RASH Verified 09/23/18 18:21 Penicillins Allergy Unknown CHEST Unverified 09/23/18 18:21 TIGHTNESS aspirin AdvReac Mild GI DISTRESS Verified 09/23/18 18:21 IRON INFUSIONS Allergy Unknown Chest Uncoded 09/23/18 18:21 tightness and SOB. Home Medications Home Medications Medication Instructions Recorded Confirmed Type albuterol sulfate [Ventolin HFA] 2 puff INHALATION Q6H PRN 09/23/18 09/23/18 History ascorbic acid (vitamin C) [Vitamin 0 mg PO DAILY 09/23/18 09/23/18 History C] atenolol 25 mg PO QAM 09/23/18 09/23/18 History calcium-vitamin D3-vitamin K 1 tab PO DAILY 09/23/18 09/23/18 History [Citracal Chew] cholecalciferol (vitamin D3) 400 unit PO DAILY 09/23/18 09/23/18 History [Vitamin D3] cyanocobalamin (vitamin B-12) 500 mcg PO DAILY 09/23/18 09/23/18 History [Vitamin B-12] dexlansoprazole [Dexilant] 30 mg PO DAILY 09/23/18 09/23/18 History fluticasone furoate-vilanterol 1 inh INHALATION DAILY 09/23/18 09/23/18 History [Breo Ellipta] gabapentin 300 mg PO HS 09/23/18 09/23/18 History hydroxyzine pamoate [Vistaril] 25 mg PO TID PRN 09/23/18 09/23/18 History infliximab [Remicade] 0 mg IV UD 09/23/18 09/23/18 History mesalamine [Delzicol] 1,600 mg PO TID 09/23/18 09/23/18 History pediatric multivitamin no.49 1 tab PO HS 09/23/18 09/23/18 History [Flintstones Gummiraymundo] prazosin 2 mg PO HS 09/23/18 09/23/18 History quetiapine 25 mg PO HS 09/23/18 09/23/18 History quetiapine 200 mg PO HS 09/23/18 09/23/18 History sertraline [Zoloft] 25 mg PO QAM 09/23/18 09/23/18 History sumatriptan succinate 50 mg PO UD PRN 09/23/18 09/23/18 History vitamin A 0 unit PO DAILY 09/23/18 09/23/18 History vitamin B complex 1 tab PO DAILY 09/23/18 09/23/18 History vitamin E 400 unit PO DAILY 09/23/18 09/23/18 History Patient History Medical History Crohn's disease (Chronic) Social History Communication Ability: Effective Beliefs That Will Affect Care: None Current Living Situation: Spouse Other Information That Helps Us Care for You: No Feels Safe at Home: Yes Safety Concerns: Feels Safe At This Time Smoking Status: Current every day smoker Tobacco Type: cigarettes Cigarettes Per Day: 12 Do You Dip or Chew Tobacco: No Tobacco Cessation Education Requested by Patient: No Hx Alcohol Use: No Hx Substance Use: No Review of Systems Review of Systems: All systems reviewed & are unremarkable except as noted in HPI & below Constitutional: + weakness and + weight loss Ear, Nose, Mouth, Throat: + dizziness Respiratory: + cough, + chest congestion, + dyspnea, + dyspnea on exertion and + wheezing Cardiovascular: no orthopnea, no paroxysmal nocturnal dyspnea, no syncope, no edema and no claudication Integumentary: + rash and + pruritus Psychiatric: as per Subjective / HPI; no substance abuse Endocrine: no polydipsia and no polyuria Hematologic / Lymphatic: + unexplained weight loss Physical Exam Physical Exam: General: A&Ox3. NAD. HEENT: Normocephalic. Atraumatic. PER. EOMI. Conjunctiva and sclera clear. NECK: No carotid bruits. No JVD. Heart: RRR, 76 bpm. S1 and S2 noted without murmur, rubs, gallops. Chest: There is reproducible bilateral upper chest wall pain. Lungs: Markedly diminished. Decreased. Diminished. Abdomen: Right sided colostomy. No abdominal bruits. Extremities: No lower extremity edema. No clubbing or cyanosis. Pulses: radial=2/4, posterior tibial=2/4, dorsalis pedis = 2/4. Neuro: No focal deficits. Results & Data Vital Signs (Past 12 Hours) Vital Signs Temp Pulse Pulse Resp BP BP Pulse Ox 09/24/18 07:11 36.4 C L 70 20 106/70 97 09/24/18 04:05 73 09/23/18 23:10 36.4 C L 58 L 18 104/65 96 09/23/18 22:33 70 75 110/58 L 98 09/23/18 22:22 36.6 C 66 21 102/65 95 Laboratory Results - last 24 hr 09/23/18 09/23/18 09/23/18 17:42 17:42 17:48 WBC 5.53 RBC 5.24 Hgb 15.6 Hct 46.6 MCV 88.9 MCH 29.8 MCHC 33.5 RDW Std Deviation 51.4 H RDW Coeff of Kaylan 15.6 H Plt Count 282 MPV 9.5 Immature Gran % (Auto) 0.2 Neut % (Auto) 69.6 Lymph % (Auto) 17.7 [place] % (Auto) 8.9 Eos % (Auto) 2.2 Baso % (Auto) 1.4 Immature Gran # (Auto) 0.01 Neut # (Auto) 3.85 Lymph # (Auto) 0.98 L [place] # (Auto) 0.49 Eos # (Auto) 0.12 Baso # (Auto) 0.08 Sodium 142 Potassium 3.7 Chloride 107 Carbon Dioxide 29 Anion Gap 6.0 BUN 6 L Creatinine 0.60 Est Cr Clr Drug Dosing 70.0 Est GFR ( Amer) 132.1 Est GFR (Non-Af Amer) 114.0 BUN/Creatinine Ratio 10.0 Glucose 81 Calcium 9.5 Magnesium Total Bilirubin 0.4 AST 17 ALT 12 Alkaline Phosphatase 68 POC Troponin I < 0.03 Troponin I Total Protein 7.8 Albumin 3.7 Globulin 4.1 H Albumin/Globulin Ratio 0.9 Lipase 96 Specimen Hemolysis 09/23/18 09/23/18 09/24/18 19:50 22:39 04:25 WBC 5.10 RBC 4.06 L Hgb 11.6 L D Hct 36.0 L MCV 88.7 MCH 28.6 MCHC 32.2 RDW Std Deviation 50.4 H RDW Coeff of Kaylan 15.6 H Plt Count 253 MPV 9.5 Immature Gran % (Auto) 0.0 Neut % (Auto) 64.1 Lymph % (Auto) 20.6 [place] % (Auto) 11.0 Eos % (Auto) 3.1 Baso % (Auto) 1.2 Immature Gran # (Auto) 0.00 Neut # (Auto) 3.27 Lymph # (Auto) 1.05 L [place] # (Auto) 0.56 Eos # (Auto) 0.16 Baso # (Auto) 0.06 Sodium Potassium Chloride Carbon Dioxide Anion Gap BUN Creatinine Est Cr Clr Drug Dosing Est GFR ( Amer) Est GFR (Non-Af Amer) BUN/Creatinine Ratio Glucose Calcium Magnesium Total Bilirubin AST ALT Alkaline Phosphatase POC Troponin I 0.06 H Troponin I < 0.015 Total Protein Albumin Globulin Albumin/Globulin Ratio Lipase Specimen Hemolysis 09/24/18 04:25 WBC RBC Hgb Hct MCV MCH MCHC RDW Std Deviation RDW Coeff of Kaylan Plt Count MPV Immature Gran % (Auto) Neut % (Auto) Lymph % (Auto) [place] % (Auto) Eos % (Auto) Baso % (Auto) Immature Gran # (Auto) Neut # (Auto) Lymph # (Auto) [place] # (Auto) Eos # (Auto) Baso # (Auto) Sodium 142 Potassium 3.9 Chloride 107 Carbon Dioxide 29 Anion Gap 6.0 BUN 11 D Creatinine 0.72 Est Cr Clr Drug Dosing 58.4 Est GFR ( Amer) 121.4 Est GFR (Non-Af Amer) 104.8 BUN/Creatinine Ratio 14.5 Glucose 76 Calcium 8.1 L Magnesium 2.0 Total Bilirubin AST ALT Alkaline Phosphatase POC Troponin I Troponin I < 0.015 Total Protein Albumin Globulin Albumin/Globulin Ratio Lipase Specimen Hemolysis
[2018-09-24] MEDS ORDERED: NYSTATIN POWDER 15GM BTL EXT PRN (09:40)
--- NOTE | 2018-09-24 11:02 | Gastrointestinal Consultation ---
Date of Consultation September 24, 2018 Assessment & Plan (1) Crohn's disease: She has a hx of fistulizing ileocolonic Crohn's S/P Rt hemicolectomy in 2008 then subtotal colectomy in 2013 w ileostomy creation. Recent imaging shows disease activity. She should be on Remicade but has had transportation issues. She needs to get started back on Remicade or other biologic. I spoke with a pharmacist here who prefers that she start as an OP. This is very reasonable as the pt was admitted for problem other and Crohn's (chest pain). Also receiving one infusion here in the hospital would not be helpful for her Crohn's if she is unable to arrange OP transportation etc to resume infusions. While here in the hospital, would treat her Crohn's with mesalamine po and we will arrange OP f/u in the GI clinic to get started on a biologic. Treat with Augmentin x 7 days (allergic to Cipro/flagyl) in view of CT scan findings of phlegmon. Still would watch carefully for allergic reaction as pt reports chest tightness with PCNs. Present on Admission?: Yes Supervising Physician Co-Signing Physician Notes I performed a history and physical examination of the patient, including speci fically on physical exam - soft, nontender abdomen. I have discussed the patient's management with [place]. Please refer to the nurse practitioner's note for the documented findings and plan of care. 38 years old female patient with complex Crohn's disease, s/p subtotal colectomy with end ileostomy, fistulization s/p Seton placement, large rectovaginal fistula, admitted with chest pain, CT scan done to evaluate for dissection and showed ileitis. From GI point the patient is actually asymptomatic, she did not get Remicaid since April due to transportation issues and there is noncompliance with medical treatment. No further management needed as inpatient. Defer to primary team to investigate her chest pain. Management of chronic Crohn's disease is solely as OP. No Remicaid now as she will develop Antibodies given her noncomplicance. Would switch her to Humira if she has transportation issues. Please recall Gi if any questions or concerns. History of Present Illness Reason for Consultation: Crohn's Requesting Physician: Dr. Negron Attending Physician: Sergio Rea MD History of Present Illness Ms. Dolores Flanagan is a 38 yr old female pt of Dr. Stoddard, with a hx of smoking, migraines, GERD, COPD fistulizing Crohn's disease. She presented to the emergency department yesterday for chest pain. Pain is a central anterior chest pressure, which is present intermittently throughout the day for several months is not exertional and does not seem to be changed by eating or defecating. She also mentions that she has increased ostomy output, diffuse abdominal discomfort and weight loss, and has not received her Remicade infusion since March because of car problems. She recognizes the symptoms as increased Crohn's activity and believes that if she were to receive one dose of Remicade, that these symptoms would improve. Regarding her history of Crohn's, she is s/p R hemicolectomy then subtotal colectomy in 2013 w ileostomy creation. Initially, she was on Humira prior to the 2013 surgery then Remicade after but the Remicade lapsed. An attempt to reinitiate the Remicade in March led to one infusion in Mar and one in Apr but the pt hasn't had further infusions due to transportation issues. She has continued Delzicol. She has setons drains in place and tells me that colorectal surgeons in [place] placed these prior to the 2013 surgery. She tells me that the surgeons do not want to remove the setons until she in on Remicade. [facility] records show most recent colonoscopy [place] [address] Poole which was prior to surgery with an anal stenosis. CT in the [facility] in May 2018 shows a 10cm area of distal small bowel involvement which is similar to the CT findings here at [facility]. Allergies Allergy/AdvReac Type Severity Reaction Status Date / Time codeine Allergy Severe SOB, Verified 09/23/18 18:21 NAUSEA -- MORPHINE OK, TAKES LORTAB AT HOME metronidazole Allergy Severe chest pain Verified 09/23/18 18:21 Cipro Allergy Unknown "I GET Verified 04/20/15 21:21 SICK AND CAN'T BREATHE RIGHT." ciprofloxacin Allergy Unknown "I GET Verified 09/23/18 18:21 SICK AND CAN'T BREATHE RIGHT." latex Allergy Unknown RASH Verified 09/23/18 18:21 Penicillins Allergy Unknown CHEST Unverified 09/23/18 18:21 TIGHTNESS aspirin AdvReac Mild GI DISTRESS Verified 09/23/18 18:21 IRON INFUSIONS Allergy Unknown Chest Uncoded 09/23/18 18:21 tightness and SOB. Home Medications Home Medications Medication Instructions Recorded Confirmed Type albuterol sulfate [Ventolin HFA] 2 puff INHALATION Q6H PRN 09/23/18 09/23/18 History ascorbic acid (vitamin C) [Vitamin 0 mg PO DAILY 09/23/18 09/23/18 History C] atenolol 25 mg PO QAM 09/23/18 09/23/18 History calcium-vitamin D3-vitamin K 1 tab PO DAILY 09/23/18 09/23/18 History [Citracal Chew] cholecalciferol (vitamin D3) 400 unit PO DAILY 09/23/18 09/23/18 History [Vitamin D3] cyanocobalamin (vitamin B-12) 500 mcg PO DAILY 09/23/18 09/23/18 History [Vitamin B-12] dexlansoprazole [Dexilant] 30 mg PO DAILY 09/23/18 09/23/18 History fluticasone furoate-vilanterol 1 inh INHALATION DAILY 09/23/18 09/23/18 History [Breo Ellipta] gabapentin 300 mg PO HS 09/23/18 09/23/18 History hydroxyzine pamoate [Vistaril] 25 mg PO TID PRN 09/23/18 09/23/18 History infliximab [Remicade] 0 mg IV UD 09/23/18 09/23/18 History mesalamine [Delzicol] 1,600 mg PO TID 09/23/18 09/23/18 History pediatric multivitamin no.49 1 tab PO HS 09/23/18 09/23/18 History [Flintstones Gummiraymundo] prazosin 2 mg PO HS 09/23/18 09/23/18 History quetiapine 25 mg PO HS 09/23/18 09/23/18 History quetiapine 200 mg PO HS 09/23/18 09/23/18 History sertraline [Zoloft] 25 mg PO QAM 09/23/18 09/23/18 History sumatriptan succinate 50 mg PO UD PRN 09/23/18 09/23/18 History vitamin A 0 unit PO DAILY 09/23/18 09/23/18 History vitamin B complex 1 tab PO DAILY 09/23/18 09/23/18 History vitamin E 400 unit PO DAILY 09/23/18 09/23/18 History Patient History Medical History Crohn's disease (Chronic) Social History Communication Ability: Effective Beliefs That Will Affect Care: None Current Living Situation: Spouse Other Information That Helps Us Care for You: No Feels Safe at Home: Yes Safety Concerns: Feels Safe At This Time Smoking Status: Current every day smoker Tobacco Type: cigarettes Cigarettes Per Day: 12 Do You Dip or Chew Tobacco: No Tobacco Cessation Education Requested by Patient: No Hx Alcohol Use: No Hx Substance Use: No Review of Systems Review of Systems: ROS: Gen: Denies weakness, fevers, weight loss Eyes: No eye redness, or pain, no recent vision changes Resp: No SOB, no cough Cardio: + chest pain, no palpitations/irregular beats; denies any SOB GI: + diffuse abdomen discomfort but less than the chest discomfort. : Denies pain on urination Skin: Chronic skin rash over entire lower abdomen, has seen derm Physical Exam Constitutional: + ill appearing and + thin Eyes: PERRL, conjunctivae normal, anicteric sclerae ENMT: external ear and nose normal, oropharynx normal Neck: trachea midline, no thyromegaly Respiratory: normal respiratory effort; no respiratory distress and no labored breathing Auscultation: + wheezes (mild to moderate, scattered throughout); no crackles and no rales Cardiovascular: RRR, no murmur, no edema Gastrointestinal (Abdomen): Ostomy draining thick brown liquid fecal material. Mild diffuse abdominal tenderness without focal tenderness rebounding or guarding. Skin: dry, scaling, flat, confluent rash on the entire lower abdomen Neurologic: PERRL, EOMI, accommodation nl, no face palsy, no dysarthria Psychiatric: A+Ox3, euthymic affect Lymphatic: no cervical or axillary lymphadenopathy Results & Data Vital Signs (Past 12 Hours) Vital Signs Temp Pulse Pulse Resp BP BP Pulse Ox 09/24/18 07:11 36.4 C L 70 20 106/70 97 09/24/18 04:05 73 09/23/18 23:10 36.4 C L 58 L 18 104/65 96 Laboratory Results WBC 5, Hb 11, Hct 36, Platelets 253, Na 142, K 3.9, BUN11, Cr 0.7, glucose 76. Diagnostic Findings CTA chest/abd/pelvis: 1. The distal 10 cm of the ileum extending to the ileostomy demonstrates mucosal hyperenhancement and mild wall thickening consistent with active inflammatory change. There is also a small focus of inflammatory change/phlegmon adjacent to the distal ileum measuring 1 cm. This could represent a small developing abscess. 2. Interval progression of the rectovaginal fistula. There has also been development of 3 small peripheral enhancing hypodense foci within the fundus and posterior wall of the uterus with the largest measuring 1.5 cm. These are new from the prior study and could represent fibroids. However, small intramural uterine abscesses are favored. 3. No evidence for an aortic dissection. 4. Emphysema. 5. A 5 mm nodule within the right upper lobe. 6. These findings were discussed with Dr. Rea at 7:40 AM on 09/24/2018.
[2018-09-24] MEDS: ONDANSETRON INJ 2 MG/ML 2 ML VIAL IV PRN ×2 (11:34→15:50)
[2018-09-24] MEDS ORDERED: SODIUM CHLORIDE 0.9% 500 ML IV ONE (12:30)
[2018-09-24] MEDS: cefTRIAXone SODIUM 1,000 MG in DEXTROSE 5% 50 ML IV SCH (13:51)
[2018-09-24] MEDS: SODIUM CHLORIDE 0.9% 1000ML 1,000 ML IV SCH (13:51)
--- NOTE | 2018-09-24 16:32 | Hospitalist Progress Note ---
Date of Service September 24, 2018 Assessment & Plan (1) Precordial chest pain: Present on admission with chest pain radiating to back POC troponin mildly elevated Troponinx3 sets negative EKG showed no acute ST changes CTA chest showed no evidence for an aortic dissection. ECHO showed no wall motion abnormality with EF btw 60 to 65% Cardiology on board (2) Crohn's disease: S/P Rt hemicolectomy in 2008 then subtotal colectomy in [address] abd/pelvis showed distal 10 cm of the ileum extending to the ileostomy demonstrates mucosal hyperenhancement and mild wall thickening consistent with active inflammatory change and small focus of inflammatory change/phlegmon adjacent to the distal ileum measuring 1 cm. and Interval progression of the rectovaginal fistula. Case discussed with GI and does not think pt is having Crohn's flare up Has not been taking the Ramicade for months due to issues with transportation to go get it GI does not want to give the Ramicade while in the hospital since it will not be helpful for her Crohn's if she is unable to get it once discharge since she does not have OP transportation As per GI that will increase her risk to form antibody if infusion the Ramicade, then unable to receive it once discharge Starting on mesalamine oral while in the hospital Continue abx for now Continue full liquid diet and advance as tolerated Continue IVF for now (3) Hypertension: BP in the low side Pt said that her blood pressure usually runs low Will hold atenolol for now Continue monitor BP (4) Tobacco abuse: Counseling on smoking cessation (5)Palpitation HR controlled Will hold Atenolol due to Low BP Consider to decrease Atenolol to 12.5mg on discharge (6)History of nightmares On prazosin. (7)COPD Continue current therapy Advised pt to quit smoking Stable (8)History of migraine On Imitrex p.r.n. (9)Bipolar disorder continue her home Seroquel. (10)Deep venous thrombosis prophylaxis On SCD (11)CODE STATUS FULL CODE Subjective Pt was seen and and examined Lying in bed with no distress Pt said that her symptoms improved Pt said that she is hungry She said that she is having increase output from her ileostomy. Denies any chest pain, palpitation, dizziness and SOB Physical Exam Physical Exam: General- No acute distress, cachetic Head- atraumatic Eyes- PERRL, EOMI, ENT- oropharynx clear Neck- supple, no JVD Lungs- clear to auscultation Heart- regular rhythm; no murmur Abdomen- normal bowel sounds, +tenderness, +ostomy bag with brown liquid fecal material. Extremities- no calf tenderness Neuro- alert, oriented x 3; PERRL, EOMI; no facial palsy; no dysarthria Skin- warm & dry Results & Data Vital Signs (Past 12 Hours) Vital Signs Temp Pulse Resp BP BP Pulse Ox 09/24/18 15:49 80/46 L 09/24/18 15:25 36.5 C 60 18 79/51 L 98 09/24/18 12:03 70/38 L 09/24/18 11:50 36.4 C L 52 L 18 79/47 L 98 09/24/18 07:11 36.4 C L 70 20 106/70 97
[2018-09-24] MEDS: ACETAMINOPHEN 1,000 MG/100 ML VIAL IV PRN (19:01)
[2018-09-24] MEDS: QUETIAPINE FUMARATE 200 MG TAB PO SCH (20:44)
[2018-09-24] MEDS: PRAZOSIN HCL 1 MG CAP PO SCH (20:45)
[2018-09-24] MEDS: FLINTSTONES COMPLETE CHEWABLE TAB PO SCH (20:48)
[2018-09-24] MEDS: GABAPENTIN 300 MG CAP PO SCH (20:48)
[2018-09-24] MEDS: QUETIAPINE FUMARATE 25 MG TABLET PO SCH (20:48)
[2018-09-25] MEDS: SODIUM CHLORIDE 0.9% 1000ML 1,000 ML IV SCH ×4 (00:34→16:19)
[2018-09-25] MEDS ORDERED: LACTATED RINGER'S 1,000 ML IV ONE (03:34)
[2018-09-25 04:14] LABS: Basophils # (auto) 0.04 K/uL (0-0.2); Basophils % (auto) 0.9 %; Eosinophils # (auto) 0.12 K/uL (0-0.5); Eosinophils % (auto) 2.6 %; Hematocrit (blood only) 32.4 % (37-47); Hemoglobin 10.3 g/dL (12.0-16.0); Immature Granulocytes # (auto) 0.01 K/uL (0.00-0.02); Immature Granulocytes % (auto) 0.2 %; Lymphocytes % (auto) 19.6 %; Mean Corpuscular Hgb Conc 31.8 g/dL (32-36); Mean Platelet Volume 9.3 fL (7.4-10.4); Monocytes # (auto) 0.54 K/uL (0.11-0.59); Monocytes % (auto) 11.8 %; Neutrophils # (auto) 2.98 K/uL (1.4-6.5); Neutrophils % (auto) 64.9 %; Platelet Count 178 K/uL (130-400); RDW Coefficient of Variation 15.6 % (11.5-14.5); RDW Standard Deviation 52.5 fL (36.4-46.3); Red Blood Count 3.56 M/uL (4.2-5.4); White Blood Count 4.59 K/uL (4.8-10.8)
[2018-09-25 04:31] LABS: BUN Creatinine Ratio 9.9 (10-20); Calcium 7.5 mg/dl (8.5-10.1); Creatinine Clr Calc Pharmacy 65.7 ml/min; Est GFR (African American) 129.4; Est GFR (Non-African American) 111.6; Magnesium 1.9 mg/dl (1.8-2.4)
[2018-09-25] MEDS: ATENOLOL 25 MG TABLET PO SCH (08:29)
[2018-09-25] MEDS: MESALAMINE 400 MG CAPDR PO SCH ×3 (08:34→21:06)
[2018-09-25] MEDS: SERTRALINE HCL 50 MG TABLET PO SCH (08:35)
[2018-09-25] MEDS: CHOLECALCIFEROL (VITAMIN D) 400 UNITS TABLET PO SCH (08:35)
[2018-09-25] MEDS: VITAMIN B COMPLEX TAB PO SCH (08:35)
[2018-09-25] MEDS: CYANOCOBALAMIN 500 MCG TABLET (VITAMIN B-12) PO SCH (08:35)
[2018-09-25] MEDS: NICOTINE 21 MG/24 HR TDSY TD SCH (08:35)
[2018-09-25] MEDS: MoRPHine SULFATE 2 MG/ML CARP IV PRN (08:35)
[2018-09-25] MEDS: PANTOprazole 40 MG TAB PO SCH (08:35)
[2018-09-25] MEDS: TOCOPHERYL, DL-ALPHA 400 UNITS CAP PO SCH (08:35)
[2018-09-25] MEDS: TRAMADOL HCL 50 MG TABLET PO PRN ×2 (14:04→21:05)
[2018-09-25] MEDS: cefTRIAXone SODIUM 1,000 MG in DEXTROSE 5% 50 ML IV SCH (14:05)
--- NOTE | 2018-09-25 16:24 | Hospitalist Progress Note ---
Date of Service September 25, 2018 Assessment & Plan (1) Precordial chest pain: Present on admission with chest pain radiating to back POC troponin mildly elevated Troponinx3 sets negative EKG showed no acute ST changes CTA chest showed no evidence for an aortic dissection. ECHO showed no wall motion abnormality with EF btw 60 to 65% Cardiology on board (2) Crohn's disease: S/P Rt hemicolectomy in 2008 then subtotal colectomy in [address] abd/pelvis showed distal 10 cm of the ileum extending to the ileostomy demonstrates mucosal hyperenhancement and mild wall thickening consistent with active inflammatory change and small focus of inflammatory change/phlegmon adjacent to the distal ileum measuring 1 cm. and Interval progression of the rectovaginal fistula. Case discussed with GI and does not think pt is having Crohn's flare up Has not been taking the Ramicade for months due to issues with transportation to go get it GI does not want to give the Ramicade while in the hospital since it will not be helpful for her Crohn's if she is unable to get it once discharge since she does not have OP transportation As per GI that will increase her risk to form antibody if infusion the Ramicade, then unable to receive it once discharge Continue mesalamine oral while in the hospital GI plan to start on Humira outpatient if she has transportation issues. Will change IV rocephin to Augmentin (Pt said that she had augmentin in the past with no issues) Will decrease IVF (3) Hypertension: BP in the low side Pt said that her blood pressure usually runs low Will hold atenolol for now Continue monitor BP (4) Tobacco abuse: Counseling on smoking cessation (5)Palpitation HR controlled Will hold Atenolol due to Low BP Consider to decrease Atenolol to 12.5mg on discharge Stable (6)History of nightmares On prazosin. (7)COPD Continue current therapy Advised pt to quit smoking Stable (8)History of migraine On Imitrex p.r.n. (9)Bipolar disorder continue her home Seroquel. (10)Deep venous thrombosis prophylaxis On SCD (11)CODE STATUS FULL CODE (12)Disposition Waiting for update from case liner about [facility] before discharging home with Subjective Pt was seen and examined Lying in bed with no distress Pt said that pain back improves She said that currently she had no pain in her chest Denies any nausea, vomiting, fever, SOB and palpitation Physical Exam Physical Exam: General- No acute distress, cachetic Head- atraumatic Eyes- PERRL, EOMI, ENT- oropharynx clear Neck- supple, no JVD Lungs- clear to auscultation Heart- regular rhythm; no murmur Abdomen- normal bowel sounds, Nontender, +ostomy bag with brown liquid fecal material. Extremities- no calf tenderness Neuro- alert, oriented x 3; PERRL, EOMI; no facial palsy; no dysarthria Skin- warm & dry Results & Data Vital Signs (Past 12 Hours) Vital Signs Temp Pulse Pulse Resp BP Pulse Ox 09/25/18 14:51 36.8 C 85 18 97/63 L 92 09/25/18 11:00 37.3 C 77 18 100/62 90 09/25/18 09:45 64 09/25/18 07:00 36.9 C 71 18 85/50 L 96
[2018-09-25] MEDS: ACETAMINOPHEN 1,000 MG/100 ML VIAL IV PRN (16:28)
[2018-09-25] MEDS: QUETIAPINE FUMARATE 25 MG TABLET PO SCH (21:07)
[2018-09-25] MEDS: QUETIAPINE FUMARATE 200 MG TAB PO SCH (21:07)
[2018-09-25] MEDS: PRAZOSIN HCL 1 MG CAP PO SCH (21:08)
[2018-09-25] MEDS: GABAPENTIN 300 MG CAP PO SCH (21:08)
[2018-09-25] MEDS: FLINTSTONES COMPLETE CHEWABLE TAB PO SCH (21:09)
[2018-09-26] MEDS: SODIUM CHLORIDE 0.9% 1000ML 1,000 ML IV SCH ×2 (03:45→12:55)
[2018-09-26] MEDS: TRAMADOL HCL 50 MG TABLET PO PRN ×2 (03:45→10:41)
[2018-09-26] MEDS: ATENOLOL 25 MG TABLET PO SCH (08:22)
[2018-09-26] MEDS: CYANOCOBALAMIN 500 MCG TABLET (VITAMIN B-12) PO SCH (08:22)
[2018-09-26] MEDS: CHOLECALCIFEROL (VITAMIN D) 400 UNITS TABLET PO SCH (08:22)
[2018-09-26] MEDS: PANTOprazole 40 MG TAB PO SCH (08:22)
[2018-09-26] MEDS: TOCOPHERYL, DL-ALPHA 400 UNITS CAP PO SCH (08:23)
[2018-09-26] MEDS: AMOXICILLIN/CLAVULANATE 875 MG TAB PO SCH ×2 (08:23→16:52)
[2018-09-26] MEDS: VITAMIN B COMPLEX TAB PO SCH (08:23)
[2018-09-26] MEDS: SERTRALINE HCL 50 MG TABLET PO SCH (08:24)
[2018-09-26] MEDS: NICOTINE 21 MG/24 HR TDSY TD SCH (08:25)
[2018-09-26] MEDS: MESALAMINE 400 MG CAPDR PO SCH ×2 (08:25→14:37)
--- NOTE | 2018-09-26 17:21 | Hospitalist Progress Note ---
Date of Service September 26, 2018 Assessment & Plan (1) Precordial chest pain: Present on admission with chest pain radiating to back POC troponin mildly elevated Troponinx3 sets negative EKG showed no acute ST changes CTA chest showed no evidence for an aortic dissection. ECHO showed no wall motion abnormality with EF btw 60 to 65% Cardiology on board No further cardiac work up as per cardiology Resolved (2) Crohn's disease: S/P Rt hemicolectomy in 2008 then subtotal colectomy in [address] abd/pelvis showed distal 10 cm of the ileum extending to the ileostomy demonstrates mucosal hyperenhancement and mild wall thickening consistent with active inflammatory change and small focus of inflammatory change/phlegmon adjacent to the distal ileum measuring 1 cm. and Interval progression of the rectovaginal fistula. Case discussed with GI and does not think pt is having Crohn's flare up Has not been taking the Ramicade for months due to issues with transportation to go get it GI does not want to give the Ramicade while in the hospital since it will not be helpful for her Crohn's if she is unable to get it once discharge since she does not have OP transportation As per GI that will increase her risk to form antibody if infusion the Ramicade, then unable to receive it once discharge Continue mesalamine oral while in the hospital GI plan to start on Humira outpatient if she has transportation issues. IV Rocephin changed to Augmentin (Pt said that she had Augmentin in the past with no issues) Tolerated antibiotic well Follow up with Gastro outpatient (3) Hypertension: BP in the low side Pt said that her blood pressure usually runs low Will hold atenolol for now Continue monitor BP (4) Tobacco abuse: Counseling on smoking cessation (5)Palpitation HR controlled Will decrease Atenolol to 12.5mg on discharge Stable (6)History of nightmares On prazosin. (7)COPD Continue current therapy Advised pt to quit smoking Stable (8)History of migraine On Imitrex p.r.n. (9)Bipolar disorder continue her home Seroquel. (10)Deep venous thrombosis prophylaxis On SCD (11)CODE STATUS FULL CODE (12)Disposition Discharge home today with home health services Follow up with primary care provider Dr. Stoddard on 10/01 @ 12:35 PM Follow up with Gastro Chery OLMOS on 7/11 @ 2:45 PM Subjective Pt was seen and examined Lying in bed with no distress Pt said that she feels much better She said that her back pain improves significantly Denies any chest pain, palpitation, dizziness and SOB Physical Exam Physical Exam: General- No acute distress, cachetic Head- atraumatic Eyes- PERRL, EOMI, ENT- oropharynx clear Neck- supple, no JVD Lungs- clear to auscultation Heart- regular rhythm; no murmur Abdomen- normal bowel sounds, +tenderness, +ostomy bag with brown liquid fecal material. Extremities- no calf tenderness Neuro- alert, oriented x 3; PERRL, EOMI; no facial palsy; no dysarthria Skin- warm & dry Results & Data Vital Signs (Past 12 Hours) Vital Signs Temp Pulse Pulse Resp BP BP Pulse Ox 09/26/18 15:48 36.5 C 78 20 101/64 93 09/26/18 11:27 37.0 C 73 18 90/48 L 93 09/26/18 10:39 76 94/56 L 09/26/18 09:00 64 09/26/18 07:31 36.9 C 73 20 81/53 L 92
--- NOTE | 2018-09-29 08:08 | Discharge Summary ---
Date of Service September 26 2018 Admission HPI Per Admitting Provider CHIEF COMPLAINT: Chest pain and weight loss. HISTORY OF PRESENT ILLNESS: This is a 38-year-old female with past medical history significant for severe COPD, Crohn's disease with complication of small and large intestine fistula, status post colostomy, migraines, bipolar 1 disorder, ongoing tobacco use disorder, history of renal calculi, history of hypertension, who presents with chest pain starting last night. The patient states chest pain which is all over the chest, radiating to the back, about 8/10 in severity. She was resting when this happened and it was not getting better, so she came to the ER. She is also losing weight since June, she has gone from 95 pounds to 73 pounds and her home health nurse advised to come to the hospital. Denies any nausea, vomiting. No sweating, no dizziness, no headache, no blurred visions. No ear ache, no runny nose, no sore throat, no difficulty swallowing. Appetite is good. She is actually eating fine. No nausea, no abdominal pain. Normal bowel and bladder movements. No blood in the stools or black stools, no hematuria, no burning micturition. No swelling of the legs. Ambulates okay. Lives with her . She is on mesalamine and Remicade every 6 weeks for Crohn's disease, but she has not taken Remicade since last April because her car broke and she has no transport available. She has a rash around the colostomy bag she says since March and she is following with dermatology and treated for dermatitis and also for fungal infection and bacterial infection, but that is not getting better. There is question of skin cancer, but nothing mentioned about in EPIC.. Next appointment with dermatology seems to be in November 2018. She says she is losing weight though she is eating okay since last June. Denies any fever or chills. Has chronic cough, but does not bring any phlegm out. Currently resting comfortably and hemodynamically stable. Nitro paste helped chest pain. Her first point of care troponin was negative, her second point of care troponin came back elevated at 0.06. Admission Exam Per Admitting Provider GENERAL: Reveals the patient to be thin and frail, not in acute distress. VITAL SIGNS: Temperature is afebrile, pulse 74, respiratory rate 20, blood pressure 106/61, oxygen 99% on 2 liters. HEENT: No pallor, no icterus. Pupils equal, round, reactive to light. NECK: No JVD, no neck masses, no carotid bruits. CARDIOVASCULAR: S1, S2 heard, regular rate and rhythm, no murmur, no gallop. RESPIRATORY SYSTEM: Normal AP diameter. No accessory muscle use. No wheezing, no crackles. ABDOMEN: Soft, bowel sounds present. No distention. Erythematous indurated rash seen around the colostomy bag. EXTREMITIES: No edema, no erythema. Principal Diagnosis Precordial chest pain Crohn's disease Hypertension Tobacco abuse Palpitation COPD Bipolar Disorder Discharge Exam General- No acute distress, cachetic Head- atraumatic Eyes- PERRL, EOMI, ENT- oropharynx clear Neck- supple, no JVD Lungs- clear to auscultation Heart- regular rhythm; no murmur Abdomen- normal bowel sounds, +tenderness, +ostomy bag with brown liquid fecal material. Extremities- no calf tenderness Neuro- alert, oriented x 3; PERRL, EOMI; no facial palsy; no dysarthria Skin- warm & dry Discharge Data Allergies Allergy/AdvReac Type Severity Reaction Status Date / Time codeine Allergy Severe SOB, Verified 09/27/18 13:10 NAUSEA -- MORPHINE OK, TAKES LORTAB AT HOME metronidazole Allergy Severe chest pain Verified 09/27/18 13:10 Cipro Allergy Unknown "I GET Verified 04/20/15 21:21 SICK AND CAN'T BREATHE RIGHT." ciprofloxacin Allergy Unknown "I GET Verified 09/27/18 13:10 SICK AND CAN'T BREATHE RIGHT." latex Allergy Unknown RASH Verified 09/27/18 13:10 Penicillins Allergy Unknown CHEST Unverified 09/27/18 13:10 TIGHTNESS prednisone AdvReac Intermediate Nausea Unverified 09/27/18 13:10 aspirin AdvReac Mild GI DISTRESS Verified 09/27/18 13:10 IRON INFUSIONS Allergy Unknown Chest Uncoded 09/27/18 13:10 tightness and SOB. Consultations 09/23/18 20:30 ED Decision to Admit Stat 09/23/18 22:33 Consult Case Management - Discharge Planning Routine 09/24/18 08:00 Consult Cardiology Routine Consult Gastroenterology Routine CHEST, ABDOMEN, AND PELVIS CTA for AORTIC DISSECTION CT DOSE: 671.00 mGy.cm HISTORY: Atypical chest pain radiating to back. dissection? TECHNIQUE: Multiaxial CT images of the chest, abdomen, and pelvis were performed both before and after the intravenous administration of contrast to evaluate the aorta. Maximal intensity projection images were also obtained. A dose lowering technique was utilized adhering to the principles of ALARA. COMPARISON STUDY: Abdomen and pelvis CT 06/26/2014. FINDINGS: Noncontrast imaging through the thoracic aorta shows no evidence for an nature mural hematoma. The thoracic aorta is normal in course and caliber with no evidence for dissection. The central pulmonary arteries are patent. Small amount of mucoid material within the trachea. Remaining central airways are patent. Moderate emphysema. No pleural effusions. No pneumothorax. Tiny linear sclerotic density within the periphery of the lingula. There is a 5 mm nodule within the right upper lobe posteriorly on image 97. No focal lung consolidations to suggest pneumonia. No suspicious lytic or blastic osseous lesions. No mediastinal or hilar lymphadenopathy. The heart is normal in size. No pericardial effusion. No pneumoperitoneum. No pneumatosis. No suspicious lytic or blastic osseous lesions. Mild focal periportal edema within the anterior segment of the right hepatic lobe. This remains unchanged. No hepatic or splenic masses. The pancreas, gallbladder, and adrenal glands are unremarkable. The main portal vein is patent. No retroperitoneal lymphadenopathy. Subcentimeter hypodense lesions within the kidneys are too small to characterize but favor cysts. No hydronephrosis. The bladder is unremarkable. Metallic wires noted within and adjacent to the rectum. This is similar compared to the prior study and is consistent with postoperative change. 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 This has progressed in the interval. There are 3 new small peripheral enhancing hypodense foci within the fundus and posterior wall of the uterus. The largest is seen on image 278 and measures 1.5 cm. These are new from the prior study and could represent fibroids. However, small intramural uterine abscesses are favored. Subtotal colectomy with right lower quadrant ileostomy. The distal 10 cm of the ileum extending to the ileostomy demonstrates mucosal hyperenhancement and mild wall thickening consistent with active inflammatory change. There is also a small focus of inflammatory change/phlegmon adjacent to the distal ileum on image 221 measuring 1 cm. This could represent a small developing abscess. Ileocolic lymphadenopathy is likely reactive. No evidence for bowel obstruction.. There is a 2.5 cm left ovarian cyst. IMPRESSION: 1. The distal 10 cm of the ileum extending to the ileostomy demonstrates mucosal hyperenhancement and mild wall thickening consistent with active inflammatory change. There is also a small focus of inflammatory change/phlegmon adjacent to the distal ileum measuring 1 cm. This could represent a small developing abscess. 2. Interval progression of the rectovaginal fistula. There has also been development of 3 small peripheral enhancing hypodense foci within the fundus and posterior wall of the uterus with the largest measuring 1.5 cm. These are new from the prior study and could represent fibroids. However, small intramural uterine abscesses are favored. 3. No evidence for an aortic dissection. 4. Emphysema. 5. A 5 mm nodule within the right upper lobe. 6. These findings were discussed with Dr. Rea at 7:40 AM on 09/24/2018. Please refer to below summary of Fleischner criteria recommendations for follow- up of incidental CT nodules (Tiesha Morales, Guidelines for management of small pulmonary nodules detected on CT scans: A statement from the Fleischner Society, Radiology 237: [phone].) SOLID NODULES Solitary nodule size: <6 mm * Low risk patients: no follow-up needed * high risk patients: optional CT at 12 months Solitary nodule size: 6-8 mm * Low risk patients: follow-up at 6-12 months, then consider further follow-up at 18-24 months * high risk patients: initial follow-up CT at 6-12 months and then at 18-24 months if no change Solitary nodule size: >8 mm * either low or high risk patients - consider follow-up CT at 3 months, and/or CT-PET, and/or biopsy Multiple nodules size: <6 mm * Low risk patients: no routine follow-up * high risk patients: optional CT at 12 months Multiple nodules size: 6-8 mm * Low risk patients: follow-up at 3-6 months, then consider further follow-up at 18-24 months * high risk patients: follow-up at 3-6 months, then at 18-24 months if no change Multiple nodules size: >8 mm * Low risk patients: follow-up at 3-6 months, then consider further follow-up at 18-24 months * high risk patients: follow-up at 3-6 months, then at 18-24 months if no change Note: newly detected indeterminate nodule in persons 35 years of age or older. * Low risk patients: minimal or absent history of smoking and/or other known risk factors * high risk patients: history of smoking or of other known risk factors (e.g. first degree relative with lung cancer, or exposure to asbestos, radon, uranium) * if a nodule up to 8 mm is partly solid or is ground glass further follow-up is required after 24 months to exclude possible slow growing adenocarcinoma (NEGAR) SUBSOLID NODULES Solitary pure ground-glass nodule * nodule size <6 mm - no CT follow-up required * nodule size >=6 mm - follow-up CT at 6-12 months, then every 2 years until 5 years Solitary part-solid nodule * nodule size <6 mm - no CT follow-up required * nodule size >=6 mm - follow-up CT at 3-6 months. If unchanged, and solid component remains <6 mm, then annual follow-up for 5 years Multiple subsolid nodules * nodule size <6 mm - follow-up CT at 3-6 months, consider further follow-up at 2 and 4 years if stable * nodule size >=6 mm - follow-up CT at 3-6 months, subsequent management based on the most suspicious nodule(s) Electronically signed by: Emeka Dickson M.D. 09/24/2018 7:51 AM Dictated: 09/24/18 0711 Transcribed: 09/24/18 0733 XR chest 2V routine CLINICAL HISTORY: Chest Pain eval for pna COMPARISON STUDY: No previous studies for comparison. FINDINGS: Emphysematous change. No focal infiltrate. No evidence for pneumothorax. Flattened diaphragms. IMPRESSION: Emphysematous change. No acute process. The above report was generated using voice recognition software. It may contain grammatical, syntax or spelling errors. Electronically signed by: Adolfo Desir M.D. 09/23/2018 6:53 PM Dictated: 09/23/18 185 Transcribed: 09/23/181851 Ordered Studies 09/23/18 22:33 CT abd pelvis IV con only Urgent CT angio chest dissec wo/w con Urgent CHEST, ABDOMEN, AND PELVIS CTA for AORTIC DISSECTION CT DOSE: 671.00 mGy.cm HISTORY: Atypical chest pain radiating to back. dissection? TECHNIQUE: Multiaxial CT images of the chest, abdomen, and pelvis were performed both before and after the intravenous administration of contrast to evaluate the aorta. Maximal intensity projection images were also obtained. A dose lowering technique was utilized adhering to the principles of ALARA. COMPARISON STUDY: Abdomen and pelvis CT 06/26/2014. FINDINGS: Noncontrast imaging through the thoracic aorta shows no evidence for an nature mural hematoma. The thoracic aorta is normal in course and caliber with no evidence for dissection. The central pulmonary arteries are patent. Small amount of mucoid material within the trachea. Remaining central airways are patent. Moderate emphysema. No pleural effusions. No pneumothorax. Tiny linear sclerotic density within the periphery of the lingula. There is a 5 mm nodule within the right upper lobe posteriorly on image 97. No focal lung consolidations to suggest pneumonia. No suspicious lytic or blastic osseous lesions. No mediastinal or hilar lymphadenopathy. The heart is normal in size. No pericardial effusion. No pneumoperitoneum. No pneumatosis. No suspicious lytic or blastic osseous lesions. Mild focal periportal edema within the anterior segment of the right hepatic lobe. This remains unchanged. No hepatic or splenic masses. The pancreas, gallbladder, and adrenal glands are unremarkable. The main portal vein is patent. No retroperitoneal lymphadenopathy. Subcentimeter hypodense lesions within the kidneys are too small to characterize but favor cysts. No h ydronephrosis. The bladder is unremarkable. Metallic wires noted within and adjacent to the rectum. This is similar compared to the prior study and is consistent with postoperative change. 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 This has progressed in the interval. There are 3 new small peripheral enhancing hypodense foci within the fundus and posterior wall of the uterus. The largest is seen on image 278 and measures 1.5 cm. These are new from the prior study and could represent fibroids. However, small intramural uterine abscesses are favored. Subtotal colectomy with right lower quadrant ileostomy. The distal 10 cm of the ileum extending to the ileostomy demonstrates mucosal hyperenhancement and mild wall thickening consistent with active inflammatory change. There is also a small focus of inflammatory change/phlegmon adjacent to the distal ileum on image 221 measuring 1 cm. This could represent a small developing abscess. Ileocolic lym phadenopathy is likely reactive. No evidence for bowel obstruction.. There is a 2.5 cm left ovarian cyst. IMPRESSION: 1. The distal 10 cm of the ileum extending to the ileostomy demonstrates mucosal hyperenhancement and mild wall thickening consistent with active inflammatory change. There is also a small focus of inflammatory change/phlegmon adjacent to the distal ileum measuring 1 cm. This could represent a small developing abscess. 2. Interval progression of the rectovaginal fistula. There has also been development of 3 small peripheral enhancing hypodense foci within the fundus and posterior wall of the uterus with the largest measuring 1.5 cm. These are new from the prior study and could represent fibroids. However, small intramural uterine abscesses are favored. 3. No evidence for an aortic dissection. 4. Emphysema. 5. A 5 mm nodule within the right upper lobe. 6. These findings were discussed with Dr. Rea at 7:40 AM on 09/24/2018. Please refer to below summary of Fleischner criteria recommendations for follow- up of incidental CT nodules (Tiesha Morales, Guidelines for management of small pulmonary nodules detected on CT scans: A statement from the Fleischner Society, Radiology 237: [phone].) SOLID NODULES Solitary nodule size: <6 mm * Low risk patients: no follow-up needed * high risk patients: optional CT at 12 months Solitary nodule size: 6-8 mm * Low risk patients: follow-up at 6-12 months, then consider further follow-up at 18-24 months * high risk patients: initial follow-up CT at 6-12 months and then at 18-24 months if no change Solitary nodule size: >8 mm * either low or high risk patients - consider follow-up CT at 3 months, and/or CT-PET, and/or biopsy Multiple nodules size: <6 mm * Low risk patients: no routine follow-up * high risk patients: optional CT at 12 months Multiple nodules size: 6-8 mm * Low risk patients: follow-up at 3-6 months, then consider further follow-up at 18-24 months * high risk patients: follow-up at 3-6 months, then at 18-24 months if no change Multiple nodules size: >8 mm * Low risk patients: follow-up at 3-6 months, then consider further follow-up at 18-24 months * high risk patients: follow-up at 3-6 months, then at 18-24 months if no change Note: newly detected indeterminate nodule in persons 35 years of age or older. * Low risk patients: minimal or absent history of smoking and/or other known risk factors * high risk patients: history of smoking or of other known risk factors (e.g. first degree relative with lung cancer, or exposure to asbestos, radon, uranium) * if a nodule up to 8 mm is partly solid or is ground glass further follow-up is required after 24 months to exclude possible slow growing adenocarcinoma (NEGAR) SUBSOLID NODULES Solitary pure ground-glass nodule * nodule size <6 mm - no CT follow-up required * nodule size >=6 mm - follow-up CT at 6-12 months, then every 2 years until 5 years Solitary part-solid nodule * nodule size <6 mm - no CT follow-up required * nodule size >=6 mm - follow-up CT at 3-6 months. If unchanged, and solid component remains <6 mm, then annual follow-up for 5 years Multiple subsolid nodules * nodule size <6 mm - follow-up CT at 3-6 months, consider further follow-up at 2 and 4 years if stable * nodule size >=6 mm - follow-up CT at 3-6 months, subsequent management based on the most suspicious nodule(s) Electronically signed by: Emeka Dickson M.D. 09/24/2018 7:51 AM Dictated: 09/24/18 0711 Transcribed: 09/24/18 0733 Hospital Course (1) Precordial chest pain: Present on admission with chest pain radiating to back POC troponin mildly elevated Troponinx3 sets negative EKG showed no acute ST changes CTA chest showed no evidence for an aortic dissection. ECHO showed no wall motion abnormality with EF btw 60 to 65% Cardiology on board No further cardiac work up as per cardiology Resolved (2) Crohn's disease: S/P Rt hemicolectomy in 2008 then subtotal colectomy in [address] abd/pelvis showed distal 10 cm of the ileum extending to the ileostomy demonstrates mucosal hyperenhancement and mild wall thickening consistent with active inflammatory change and small focus of inflammatory change/phlegmon adjacent to the distal ileum measuring 1 cm. and Interval progression of the rectovaginal fistula. Case discussed with GI and does not think pt is having Crohn's flare up Has not been taking the Ramicade for months due to issues with transportation to go get it GI does not want to give the Ramicade while in the hospital since it will not be helpful for her Crohn's if she is unable to get it once discharge since she does not have OP transportation As per GI that will increase her risk to form antibody if infusion the Ramicade, then unable to receive it once discharge Continue mesalamine oral while in the hospital GI plan to start on Humira outpatient if she has transportation issues. IV Rocephin changed to Augmentin (Pt said that she had Augmentin in the past with no issues) Tolerated antibiotic well Follow up with Gastro outpatient (3) Hypertension: BP in the low side Pt said that her blood pressure usually runs low Will hold atenolol for now Continue monitor BP (4) Tobacco abuse: Counseling on smoking cessation (5)Palpitation HR controlled Will decrease Atenolol to 12.5mg on discharge Stable (6)History of nightmares On prazosin. (7)COPD Continue current therapy Advised pt to quit smoking Stable (8)History of migraine On Imitrex p.r.n. (9)Bipolar disorder continue her home Seroquel. (10)Deep venous thrombosis prophylaxis On SCD (11)CODE STATUS FULL CODE (12)Disposition Discharge home today with home health services Follow up with primary care provider Dr. Stoddard on 10/01 @ 12:35 PM Follow up with Gastro Chery OLMOS on 10/02 @ 2:45 PM Total Time Total Time Spent Total Time Spent (In Minutes): 35 minutes Total Time Includes: Examination of the Patient, Discharge Planning, Medication Reconciliation, Communication With Other Providers and Other Discharge Plan Discharge Items Patient Disposition: Home - Self-Care Reason For Visit: CHEST PAIN Discharge Diagnosis: Precordial chest pain Crohn's disease Hypertension Tobacco abuse Palpitation COPD Bipolar Disorder Discharge Goals: Decrease discomfort, Improve disease control, Improve function and Increase independence Activity: Resume your previous activity Activity Comment: As tolerated Non-emergency contact: Primary Care Provider and Senior Accounts Payable Clerk Call non-emergency contact if: you have any medication questions and your symptoms worsen Follow-up/Referrals: Kathy Stoddard DO [Primary Care Provider] - Diet: Regular Addtl Provider Instructions: Discharge home today with home health services Follow up with primary care provider Dr. Stoddard on 10/01 @ 12:35 PM Follow up with Gastroenterology Chery OLMOS on 10/02 @ 2:45 PM Complete course of antibiotic Continue oxygen supplement with exertion or ambulation Atenolol decreased to 12.5mg daily Prescriptions: New amoxicillin-pot clavulanate 875-125 mg Tablet 1 tab PO BIDM 5 Days Qty: 10 RF: 0 Continued quetiapine 25 mg tablet 25 mg PO HS RF: 0 ascorbic acid (vitamin C) [Vitamin C] 1,000 mg Tablet PO QAM RF: 0 vitamin A 8,000 unit Capsule PO QAM RF: 0 quetiapine 200 mg tablet 200 mg PO HS RF: 0 sumatriptan succinate 50 mg tablet 50 mg PO UD PRN (Reason: Migraine Headache) RF: 0 cyanocobalamin (vitamin B-12) [Vitamin B-12] 500 mcg Tablet 500 mcg PO QAM RF: 0 gabapentin 300 mg capsule 300 mg PO HS RF: 0 sertraline [Zoloft] 25 mg tablet 25 mg PO QAM RF: 0 vitamin B complex Tablet 1 tab PO QAM RF: 0 albuterol sulfate [Ventolin HFA] 90 mcg/actuation HFA aerosol inhaler 2 puff inhalation Q6H PRN (Reason: Shortness Of Breath Or Wheezing) RF: 0 vitamin E 400 unit Capsule 400 unit PO QAM RF: 0 prazosin 2 mg capsule 2 mg PO HS RF: 0 hydroxyzine pamoate [Vistaril] 25 mg Capsule 25 mg PO TID PRN (Reason: Anxiety) RF: 0 cholecalciferol (vitamin D3) [Vitamin D3] 400 unit Capsule 400 unit PO QAM RF: 0 Dexilant 30 mg Capsule,Biphase Delayed Releas 30 mg PO PM RF: 0 calcium-vitamin D3-vitamin K [Citracal Chew] 500 mg-1,000 unit-40 mcg Tablet,Chewable 1 tab PO QAM RF: 0 Flintstones Gummies Tablet,Chewable 1 tab PO QAM RF: 0 Breo Ellipta 100-25 mcg/dose blister with device 1 inh inhalation DAILY RF: 0 mesalamine [Delzicol] 400 mg capsule (with del rel tablets) 1,600 mg PO TID RF: 0 Changed atenolol 25 mg tablet 12.5 mg PO QAM Qty: 0 RF: 0 Discontinued Remicade 100 mg Recon Soln IV UD RF: 0 Stand-Alone Forms: [facility] Discharge Orders: Discharge Order (Routine); Ordered 09/26/18 Ordered By: Sergio Rea Admission Data Admit Date/Time: 09/24/18 19:27 Attending Provider: Sergio Rea Admit Provider: Jaime Negron Primary Care Provider: Kathy Stoddard Other Providers: Jaime Negron ; Zeeshan Mccall ; Russell Ambrose ; Shiv Hulrey ; Víctor Fields ; Rodger Doll ; Adolfo Osborn ; Halina Callahan ; Shila Penn ; Dixon Renee ; Cuca [place] ; Eun Bautista ; Gabino Slater ; Maria Dolores Taylor ; Katheryn Hadley ; Zoe Nolan ; Manuel Poole ; Tiburcio Crain ; Chery Hopknis ; Estelle Carrillo ; Nola Daniel ; Latasha Montana ; Vania aHro Service: Telemetry Medical Other Interventions: Discharge Summary Assessment (RN) Last Done: 09/26/18 19:26 DC Date/Time DO NOT enter until pt leaves facility: 09/26/18 19:27
--- NOTE | 2018-09-30 10:18 | Coding Query ---
CHEST PAIN To promote full compliance with coding requirements relating to patient care physician participation is requested in all cases of pin sticker uncertainty. Please assist us with the question(s) below: Please list a more specific chest pain diagnosis or cause of chest pain if known by placing an X within the parenthesis (x): (x ) Atypical Chest Pain ( ) Chest Wall Pain ( ) Midsternal Chest Pain ( ) Musculoskeletal Chest Pain ( ) Pleuritic Chest Pain ( ) Substernal Chest Pain ( ) Costochondral Chest Pain ( ) Other (please Specify) ( ) Unable to Determine Thank you Liban Bertrand [facility]
== END 2018-09-26 19:27 | disposition home or self-care (01) | DRG 313 ==
LOC: 2W 17:05 → ED 17:05 → 2W 22:03

== ENCOUNTER 2018-09-27 12:31 | Inpatient (IN) ==
[2018-09-27 13:18] LABS: Basophils # (auto) 0.06 K/uL (0-0.2); Basophils % (auto) 1.1 %; Eosinophils # (auto) 0.12 K/uL (0-0.5); Eosinophils % (auto) 2.2 %; Hematocrit (blood only) 39.3 % (37-47); Hemoglobin 12.8 g/dL (12.0-16.0); Immature Granulocytes # (auto) 0.01 K/uL (0.00-0.02); Immature Granulocytes % (auto) 0.2 %; Lymphocytes # (auto) 0.52 K/uL (1.2-3.4); Lymphocytes % (auto) 9.5 %; Mean Corpuscular Hgb Conc 32.6 g/dL (32-36); Mean Corpuscular Volume 86.9 fL (80-100); Mean Platelet Volume 9.4 fL (7.4-10.4); Monocytes # (auto) 0.51 K/uL (0.11-0.59); Monocytes % (auto) 9.3 %; Neutrophils # (auto) 4.25 K/uL (1.4-6.5); Neutrophils % (auto) 77.7 %; Platelet Count 220 K/uL (130-400); RDW Coefficient of Variation 15.3 % (11.5-14.5); RDW Standard Deviation 48.7 fL (36.4-46.3); Red Blood Count 4.52 M/uL (4.2-5.4); White Blood Count 5.47 K/uL (4.8-10.8)
[2018-09-27 13:33] LABS: Partial Thromboplastin Ratio 1.1; Partial Thromboplastin Time 28.6 Seconds (21.0-31.0); Prothrombin Time 10.7 Seconds (9.0-12.0)
[2018-09-27] MEDS ORDERED: ONDANSETRON INJ 2 MG/ML 2 ML VIAL IV STA (13:33)
[2018-09-27] MEDS ORDERED: SODIUM CHLORIDE 0.9% 1000ML 1,000 ML IV ONE (13:33)
[2018-09-27 13:42] LABS: Alanine Aminotransferase 10 U/L (12-78); Albumin Level 2.6 gm/dl (3.4-5.0); Aspartate Aminotransferase 14 U/L (15-37); BUN Creatinine Ratio 6.4 (10-20); Blood Urea Nitrogen 3 mg/dl (7-18); Calcium 8.7 mg/dl (8.5-10.1); Carbon Dioxide 31 mmol/L (21-32); Chloride 104 mmol/L (98-107); Creatinine Clr Calc Pharmacy 105.2 ml/min; Est GFR (African American) 144.2; Est GFR (Non-African American) 124.4; Glucose 82 mg/dl (70-99); Potassium 3.6 mmol/L (3.5-5.1); Sodium 140 mmol/L (136-145)
--- NOTE | 2018-09-27 13:50 | XRay Report ---
XR chest 1V portable HISTORY: Atypical chest pain. COMPARISON: Chest 09/23/2018. FINDINGS: Emphysema. No pneumothorax. No pleural effusions. The heart is normal in size. No new focal lung consolidations to suggest pneumonia. No evidence for pulmonary edema. IMPRESSION: No significant change compared to the prior study. No acute process. Emphysema. Electronically signed by: Emeka Dickson M.D. 09/27/2018 1:49 PM
[2018-09-27 13:58] LABS: Albumin Globulin Ratio 0.7 (0.9-2); Alkaline Phosphatase 58 U/L (45-117); Bilirubin,Total 0.3 mg/dl (0.2-1); Globulin 3.6 gm/dl (2.5-4.0); Total Protein 6.2 gm/dl (6.4-8.2); Troponin I < 0.015 ng/ml (0-0.045)
[2018-09-27 13:58] LABS: D Dimer 710 ug/L FEU (0-500)
[2018-09-27] MEDS ORDERED: OPTIRAY 320 125ml IV PRN (14:52)
--- NOTE | 2018-09-27 15:16 | CT Scan Report ---
CHEST CTA for AORTIC DISSECTION CT DOSE: 413.96 mGy.cm HISTORY: Chest pain radiating to back. TECHNIQUE: Multiaxial CT images of the chest were performed both before and after the intravenous adm inistration of contrast to evaluate the aorta. Maximal intensity projection images were also obtained . A dose lowering technique was utilized adhering to the principles of ALARA. COMPARISON STUDY: Chest CTA 09/24/2018. FINDINGS: Noncontrast imaging through the thoracic aorta shows no evidence for an intramural hematoma . The thoracic aorta is normal in course and caliber with no evidence for dissection. A linear fillin g defect seen within the left upper lobe pulmonary artery on image 121. This may represent a nonocclu sive pulmonary embolus or streak artifact. The remaining pulmonary arteries are patent. The heart is normal in size. Small bilateral pleural effusions have progressed. There is also a small amount of as cites seen within the upper abdomen. No mediastinal or hilar lymphadenopathy. Normal esophagus. No fr actures within the visualized osseous structures. No pneumothorax. Emphysema. Small amount of mucosal material within the trachea and mainstem bronchi. This has progressed. There is new focal peripheral wedge-shaped density within the left lower lobe on image 171. This measures 9 mm. This could represe nt mild inflammatory/infectious change or possibly a small pulmonary infarct. No change in the 5 mm i rregular density within the right upper lobe on image 89. IMPRESSION: 1. No evidence for an aortic dissection. 2. A small linear filling defect seen within a left upper lobe segmental pulmonary artery. This may r epresent a small nonocclusive pulmonary embolus versus artifact. Recommend follow-up venous Doppler s tudies to assess for a DVT. 3. There is a new small focal wedge-shaped density within the periphery of the left lower lobe. This could represent mild inflammatory/infectious change or possibly a small pulmonary infarct. 4. Redemonstration of a 5 mm irregular density within the right upper lobe. Follow-up recommended to ensure stability. 5. Small bilateral pleural effusions and mild ascites have developed in the interval. Electronically signed by: Emeka Dickson M.D. 09/27/2018 3:15 PM
[2018-09-27] MEDS ORDERED: AZITHROMYCIN 250 MG TAB PO ONE (15:42)
[2018-09-27] MEDS ORDERED: cefTRIAXone SODIUM 1,000 MG/50 ML BAG IV STA (15:42)
--- NOTE | 2018-09-27 15:57 | History & Physical Report ---
Date of Service September 27, 2018 Assessment & Plan (1) Pneumonia: Acute Pulmonary Embolus Left Lower Lobe Pneumonia/Possible pulmonary infarct Acute on chronic respiratory failure with hypoxia: --CTA:No evidence for an aortic dissection. A small linear filling defect seen within a left upper lobe segmental pulmonary artery. This may represent a small nonocclusive pulmonary embolus versus artifact. Recommend follow-up venous Doppler studies to assess for a DVT. There is a new small focal wedge-shaped density within the periphery of the left lower lobe. This could represent mild inflammatory/infectious change or possibly a small pulmonary infarct. Redemonstration of a 5 mm irregular density within the right upper lobe. Follow- up recommended to ensure stability. Small bilateral pleural effusions and mild ascites have developed in the interval. --Venous doppler: No DVT --Likely precipitated due to immobilization from recent hospitalization --Start on Heparin ggt --Also started on Zosyn (To cover both Pneumonia, Phlegmon noted on prior abd CT) (Hold Augmentin) --Patient is on 2 L of oxygen as needed for asthma/COPD --Oxygen supplementation as needed Crohn's disease Fistulizing ileocolonic Crohn's disease S/P right hemicolectomy in 2008 then subsequent colectomy with Ileostomy in 2013 Interval progression of rectovaginal fistula, findings of phlegmon noted on recent CT abdomen Hold Augmentin--was advised to complete a 7-day course during prior discharge Continue Zosyn as above Currently denies any abdominal pain Consider GI eval if patient develops abdominal pain Continue PPI, Mesalamine Planned to be started on Remicade as outpatient H/O Severe COPD On 2 liters of Oxygen PRN at home No signs of Exacerbation Continue home inhalers Nebs PRN Bipolar disorder Continue home meds Tobacco use disorder Clinical Trials Manager to quit smoking Nicotine patch DVT Px: On Heparin ggt Code Status: Full Code Disposition: Expect to discharge home when stable History of Present Illness Chief Complaint: Chest Pain Primary Care Provider: Kathy Stoddard DO Patient is a 38-year-old female with history of fistulizing ileocolonic Crohn's disease S/P right hemicolectomy in 2008 then subsequent colectomy with Ileostomy in 2013 , severe COPD, bipolar disorder, tobacco use disorder, migraines, hypertension and other problems presents with history of worsening chest pain associated with shortness of breath, dizziness and nausea. Patient was discharged yesterday from [facility] after being evaluated for precordial chest pain and abdominal pain. Patient states that chest pain is sharp in quality, all across the chest, associated with shortness of breath, increases with breathing and exertion. Also reports cough with no expectoration's since 3 days duration. She noticed to have frontal headache associated with nausea this morning but denies any vomiting. States having d izziness today. Patient complains of lower back pain since yesterday. Denies any history of hemoptysis, fever, fall, head trauma, LOC, change in vision, abdominal pain, blood in stools, diarrhea, dysuria, hematuria. Patient was advised to continue Augmentin at the time of prior discharge for a total of 7 days to treat a developing phlegmon noted on prior abdominal CT scan. She was also advised to follow-up with gastroenterology as outpatient to be initiated on Remicade. Patient states that she did not continue taking Augmentin and has not seen optoelectronic technician yet. CTA showed no evidence of aortic dissection, but noted to have a small linear filling defect within the left upper lobe segmental pulmonary artery which is suggestive of possible non-occlusive pulmonary embolus versus artifact. Also noted findings suggestive of left lower lobe pneumonia, possibly a small pulmonary infarct. Small bilateral pleural effusions with mild ascites was noted as well. Allergies Allergy/AdvReac Type Severity Reaction Status Date / Time codeine Allergy Severe SOB, Verified 09/27/18 13:10 NAUSEA -- MORPHINE OK, TAKES LORTAB AT HOME metronidazole Allergy Severe chest pain Verified 09/27/18 13:10 Cipro Allergy Unknown "I GET Verified 04/20/15 21:21 SICK AND CAN'T BREATHE RIGHT." ciprofloxacin Allergy Unknown "I GET Verified 09/27/18 13:10 SICK AND CAN'T BREATHE RIGHT." latex Allergy Unknown RASH Verified 09/27/18 13:10 Penicillins Allergy Unknown CHEST Unverified 09/27/18 13:10 TIGHTNESS prednisone AdvReac Intermediate Nausea Unverified 09/27/18 13:10 aspirin AdvReac Mild GI DISTRESS Verified 09/27/18 13:10 IRON INFUSIONS Allergy Unknown Chest Uncoded 09/27/18 13:10 tightness and SOB. Home Medications Home Medications Medication Instructions Recorded Confirmed Type Kekeo Ellipta 1 inh INHALATION DAILY 09/23/18 09/27/18 History Dexilant 30 mg PO PM 09/23/18 09/27/18 History Flintstones Gummies 1 tab PO QAM 09/23/18 09/27/18 History albuterol sulfate [Ventolin HFA] 2 puff INHALATION Q6H PRN 09/23/18 09/27/18 History ascorbic acid (vitamin C) [Vitamin 0 mg PO QAM 09/23/18 09/27/18 History C] calcium-vitamin D3-vitamin K 1 tab PO QAM 09/23/18 09/27/18 History [Citracal Chew] cholecalciferol (vitamin D3) 400 unit PO QAM 09/23/18 09/27/18 History [Vitamin D3] cyanocobalamin (vitamin B-12) 500 mcg PO QAM 09/23/18 09/27/18 History [Vitamin B-12] gabapentin 300 mg PO HS 09/23/18 09/27/18 History hydroxyzine pamoate [Vistaril] 25 mg PO TID PRN 09/23/18 09/27/18 History mesalamine [Delzicol] 1,600 mg PO TID 09/23/18 09/27/18 History prazosin 2 mg PO HS 09/23/18 09/27/18 History quetiapine 25 mg PO HS 09/23/18 09/27/18 History quetiapine 200 mg PO HS 09/23/18 09/27/18 History sertraline [Zoloft] 25 mg PO QAM 09/23/18 09/27/18 History sumatriptan succinate 50 mg PO UD PRN 09/23/18 09/27/18 History vitamin A 0 unit PO QAM 09/23/18 09/27/18 History vitamin B complex 1 tab PO QAM 09/23/18 09/27/18 History vitamin E 400 unit PO QAM 09/23/18 09/27/18 History amoxicillin-pot clavulanate 1 tab PO BIDM 5 Days #10 tab 09/26/18 09/27/18 Rx atenolol 12.5 mg PO QAM #0 tab 09/26/18 09/27/18 Rx Past Med/Surg History Medical History Hypertension Crohn's disease (Chronic) Family History Unknown Family history non-contributory Social History Preferred Language: Yoruba Communication Ability: Effective Aeronautical Inspector Required: No Beliefs That Will Affect Care: None Current Living Situation: Spouse Other Information That Helps Us Care for You: No Feels Safe at Home: Yes Safety Concerns: Feels Safe At This Time Smoking Status: Current every day smoker Tobacco Type: cigarettes Cigarettes Per Day: 12 Do You Dip or Chew Tobacco: No Second Hand Exposure: No Tobacco Cessation Education Requested by Patient: No Hx Alcohol Use: No Hx Substance Use: No Review of Systems Review of Systems: All systems reviewed & are unremarkable except as noted in HPI & below Physical Exam Physical Exam: Physical Exam: Vitals signs as noted above General Appearance:Thin, Frail, ill appearing, no apparent distress Head: normocephalic, Atraumatic Eyes: normal inspection, EOMI Neck: supple, Trachea midline Respiratory/Chest: Decreased breath sounds, CTA Cardiovascular: S1, S2, No murmur Abdomen/GI:Soft, Non tender, Bowel sounds present, +Ileostomy Extremities/Musculoskelatal:normal inspection, no edema Neurologic/Psych:AAOX3, grossly no focal neurological deficits Skin: normal color, warm Results & Data Vital Signs (Past 12 Hours) Vital Signs Temp Pulse Pulse Resp BP BP Pulse Ox 09/27/18 14:50 78 18 114/68 98 09/27/18 12:40 37.1 C 80 18 103/62 88 L Laboratory Results Short CBC 09/27/18 Range/Units 13:08 WBC 5.47 (4.8-10.8) K/uL Hgb 12.8 (12.0-16.0) g/dL Hct 39.3 (37-47) % Plt Count 220 (130-400) K/uL BMP 09/27/18 13:07 Sodium 140 Potassium 3.6 Chloride 104 Carbon Dioxide 31 BUN 3 L Creatinine 0.46 L Glucose 82 Calcium 8.7 Cardiac Enzymes 09/27/18 Range/Units 13:07 Troponin I < 0.015 (0-0.045) ng/ml Liver Function 09/27/18 Range/Units 13:07 Total Bilirubin 0.3 (0.2-1) mg/dl AST 14 L (15-37) U/L ALT 10 L (12-78) U/L Alkaline Phosphatase 58 (45-117) U/L Albumin 2.6 L (3.4-5.0) gm/dl Diagnostic Findings Chest CTA: 1. No evidence for an aortic dissection. 2. A small linear filling defect seen within a left upper lobe segmental pulmonary artery. This may represent a small nonocclusive pulmonary embolus versus artifact. Recommend follow-up venous Doppler studies to assess for a DVT. 3. There is a new small focal wedge-shaped density within the periphery of the left lower lobe. This could represent mild inflammatory/infectious change or possibly a small pulmonary infarct. 4. Redemonstration of a 5 mm irregular density within the right upper lobe. Follow-up recommended to ensure stability. 5. Small bilateral pleural effusions and mild ascites have developed in the interval. Venous Doppler: No DVT within the right or left lower extremity. ECG Additional Comments: EKG: Normal sinus rhythm, QTC 452, no significant changes from prior EKG. (1) Pneumonia Laterality: left Lung location: lower lobe of lung Pneumonia type: due to unspecified organism Qualified Code(s): J18.1 - Lobar pneumonia, unspecified organism
--- NOTE | 2018-09-27 16:28 | Ultrasound Report ---
BILATERAL LOWER EXTREMITY VENOUS DOPPLER HISTORY: Equivocal pulmonary emboli possible PE COMPARISON STUDY: Doppler study 04/11/2017. FINDINGS: There is normal compressibility, flow, and augmentation within the bilateral lower extremit y deep venous systems. IMPRESSION: No DVT within the right or left lower extremity. Electronically signed by: Slick Diaz M.D. 09/27/2018 4:26 PM
--- NOTE | 2018-09-27 18:07 | Emergency Department Note ---
Entered by Cindy Horton acting as a scribe for Manuel Levy DO History of Present Illness General Chief complaint: Chest Pain Stated complaint: chest pain Time Seen by Provider: 09/27/18 13:26 Source: patient History of Present Illness Onset (ago): hour(s) 2 Location: chest (right-sided) Radiation: back Severity: similar to prior episodes Pain Consistency: + other (persistent ) Maximum Pain Intensity: 10 Associated symptoms: + nausea/vomiting (positive nausea; negative vomiting ) and + other (positive lightheaded; negative abdominal pain ) Treatments prior to arrival: none The patient is a 38 year old female who presents to the Emergency Room with complaints of persistent right-sided chest pain that began 2 hours prior to arrival. The patient states that this pain radiates to her back. She states that this chest pain is similar to a prior episode several days ago when she came to the ED. The patient states that she has been lightheaded and short of breath during this time. She denies abdominal pain and vomiting, but states that she is nauseous. The patient denies treatments prior to arrival. Home Medications Home Medications Medication Instructions Recorded Confirmed Type Breo Ellipta 1 inh INHALATION DAILY 09/23/18 09/27/18 History Dexilant 30 mg PO PM 09/23/18 09/27/18 History Flintstones Gummies 1 tab PO QAM 09/23/18 09/27/18 History albuterol sulfate [Ventolin HFA] 2 puff INHALATION Q6H PRN 09/23/18 09/27/18 History ascorbic acid (vitamin C) [Vitamin 0 mg PO QAM 09/23/18 09/27/18 History C] calcium-vitamin D3-vitamin K 1 tab PO QAM 09/23/18 09/27/18 History [Citracal Chew] cholecalciferol (vitamin D3) 400 unit PO QAM 09/23/18 09/27/18 History [Vitamin D3] cyanocobalamin (vitamin B-12) 500 mcg PO QAM 09/23/18 09/27/18 History [Vitamin B-12] gabapentin 300 mg PO HS 09/23/18 09/27/18 History hydroxyzine pamoate [Vistaril] 25 mg PO TID PRN 09/23/18 09/27/18 History mesalamine [Delzicol] 1,600 mg PO TID 09/23/18 09/27/18 History prazosin 2 mg PO HS 09/23/18 09/27/18 History quetiapine 25 mg PO HS 09/23/18 09/27/18 History quetiapine 200 mg PO HS 09/23/18 09/27/18 History sertraline [Zoloft] 25 mg PO QAM 09/23/18 09/27/18 History sumatriptan succinate 50 mg PO UD PRN 09/23/18 09/27/18 History vitamin A 0 unit PO QAM 09/23/18 09/27/18 History vitamin B complex 1 tab PO QAM 09/23/18 09/27/18 History vitamin E 400 unit PO QAM 09/23/18 09/27/18 History amoxicillin-pot clavulanate 1 tab PO BIDM 5 Days #10 tab 09/26/18 09/27/18 Rx atenolol 12.5 mg PO QAM #0 tab 09/26/18 09/27/18 Rx Allergies Allergy/AdvReac Type Severity Reaction Status Date / Time codeine Allergy Severe SOB, Verified 09/27/18 13:10 NAUSEA -- MORPHINE OK, TAKES LORTAB AT HOME metronidazole Allergy Severe chest pain Verified 09/27/18 13:10 Cipro Allergy Unknown "I GET Verified 04/20/15 21:21 SICK AND CAN'T BREATHE RIGHT." ciprofloxacin Allergy Unknown "I GET Verified 09/27/18 13:10 SICK AND CAN'T BREATHE RIGHT." latex Allergy Unknown RASH Verified 09/27/18 13:10 Penicillins Allergy Unknown CHEST Unverified 09/27/18 13:10 TIGHTNESS prednisone AdvReac Intermediate Nausea Unverified 09/27/18 13:10 aspirin AdvReac Mild GI DISTRESS Verified 09/27/18 13:10 IRON INFUSIONS Allergy Unknown Chest Uncoded 09/27/18 13:10 tightness and SOB. Past Med/Surg History Medical History Hypertension Crohn's disease (Chronic) Family History Unknown Family history non-contributory Social History Communication Ability: Effective Beliefs That Will Affect Care: None Current Living Situation: Spouse Feels Safe at Home: Yes Smoking Status: Current every day smoker Tobacco Type: cigarettes Cigarettes Per Day: 12 Hx Alcohol Use: No Hx Substance Use: No Review of Systems See HPI for pertinent positives & negatives. and A total of 10 systems reviewed and were otherwise negative Physical Exam Vital Signs Vital Signs - 24 hr 09/27/18 12:40 09/27/18 14:50 09/27/18 17:33 Temperature 37.1 C Temperature Source Oral Sepsis Recent Fever Within 48 Hours No Sepsis New/Unexplained Change in Mental Status No Sepsis Action Taken by Nursing No Action Required Pulse Rate 80 Pulse Rate [Right Finger] 78 86 Pulse Rhythm Regular Pulse Rhythm [Right Finger] Regular Pulse Strength Normal Pulse Strength [Right Finger] Normal Respiratory Rate 18 18 18 Respiratory Effort / Characteristics Non-Labored Non-Labored Respiratory Depth Normal Normal Respiratory Pattern Regular Regular Blood Pressure 103/62 Blood Pressure [Right Arm] 114/68 103/60 Blood Pressure Mean 75 Blood Pressure Mean [Right Arm] 83 74 Blood Pressure Position Sitting Pulse Oximetry 88 L 98 98 Oxygen Delivery Method Room Air Nasal Cannula Oxygen Flow Rate 2 GENERAL: Patient is awake, alert, and in no acute distress. Appears mildly anxious and uncomfortable. EYES: The conjunctivae are clear. The pupils are round and reactive. EARS, NOSE, MOUTH AND THROAT: The nose is without any evidence of any deformity. Mucous membranes are moist.Tongue is midline NECK: The neck is nontender and supple. RESPIRATORY: Normal respiratory effort is noted. There is no evidence of wheezing rhonchi or rales to auscultation. Lung sounds diminished throughout. No tachypnea or conversational dyspnea. CARDIOVASCULAR: Regular rate and rhythm noted. There no murmurs rubs or gallops normal S1 normal S2 GASTROINTESTINAL: The abdomen is soft. Bowel sounds are present in all quadrants. Abdomen is nontender. BACK: No midline tenderness or or step-off noted range of motion in flexion extension as well as rotation no signs of muscle spasm noted. MUSCULOSKELETAL/EXTREMITIES: There is no evidence of gross deformity. Full range of motion is noted in the hips and shoulders. SKIN: There is no obvious evidence of any rash. There are no petechiae, pallor or cyanosis noted. NEUROLOGIC: Patient is awake alert and oriented x3. Course 1331: Past medical records reviewed. The patient was evaluated in room C11B. A complete history and physical exam was performed. 1544: I discussed the case with Debora OLMOS who accepts the patient for further evaluation. 1552: I updated the patient on all results and the treatment plan. Administered Medications Ioversol (Optiray 320 125ml) 118 ml IV ONCE PRN PRN Reason: Interaction Checking Stop: 10/01/18 14:51 Last Admin: 09/27/18 14:52 Dose: 118 ml Documented by: [id number] Discontinued Medications Azithromycin (Zithromax) 500 mg PO NOW ONE Stop: 09/27/18 15:43 Last Admin: 09/27/18 15:49 Dose: 500 mg Documented by: [id number] Sodium Chloride (Nss 1000ml) 1,000 mls @ 999 mls/hr IV .Q1H1M ONE Stop: 09/27/18 14:33 Last Infusion: 09/27/18 17:41 Dose: 0 mls/hr Documented by: [id number] Admin: 09/27/18 13:41 Dose: 999 mls/hr Documented by: [id number] Ceftriaxone Sodium (Rocephin) 1,000 mg in 50 mls @ 100 mls/hr IV NOW STA Stop: 09/27/18 16:11 Last Infusion: 09/27/18 16:08 Dose: 0 mls/hr Documented by: [id number] Admin: 09/27/18 15:49 Dose: 100 mls/hr Documented by: [id number] Ondansetron HCl (Zofran) 4 mg IV NOW STA Stop: 09/27/18 13:34 Last Admin: 09/27/18 13:47 Dose: 4 mg Documented by: [id number] Medical Decision Making Differential Diagnosis Differential diagnosis: Etiologies such as cardiac ischemia, aortic dissection, pulmonary embolism, pneumonia, pneumothorax, musculoskeletal, infections, pericarditis, myocarditis, esophageal rupture, gastrointestinal, as well as others were entertained. Medical Records Attestation: I reviewed the patient's medical records. Home Medications Current Medication List: was personally reviewed by me Laboratory Data Attestation: I reviewed the patient's lab results. Result diagrams: 09/27/18 13:08 09/27/18 13:07 Lab Results 09/27/18 09/27/18 09/27/18 Range/Units 13:07 13:08 13:08 WBC 5.47 (4.8-10.8) K/uL RBC 4.52 (4.2-5.4) M/uL Hgb 12.8 (12.0-16.0) g/dL Hct 39.3 (37-47) % MCV 86.9 (80-100) fL MCH 28.3 (25-34) pg MCHC 32.6 (32-36) g/dL RDW Std Deviation 48.7 H (36.4-46.3) fL RDW Coeff of Kaylan 15.3 H (11.5-14.5) % Plt Count 220 (130-400) K/uL MPV 9.4 (7.4-10.4) fL Immature Gran % (Auto) 0.2 % Neut % (Auto) 77.7 % Lymph % (Auto) 9.5 % Russell % (Auto) 9.3 % Eos % (Auto) 2.2 % Baso % (Auto) 1.1 % Immature Gran # (Auto) 0.01 (0.00-0.02) K/uL Neut # (Auto) 4.25 (1.4-6.5) K/uL Lymph # (Auto) 0.52 L (1.2-3.4) K/uL Russell # (Auto) 0.51 (0.11-0.59) K/uL Eos # (Auto) 0.12 (0-0.5) K/uL Baso # (Auto) 0.06 (0-0.2) K/uL PT 10.7 (9.0-12.0) Seconds INR 1.0 (0.9-1.1) APTT 28.6 (21.0-31.0) Seconds PTT Ratio 1.1 D-Dimer (0-500) ug/L FEU Sodium 140 (136-145) mmol/L Potassium 3.6 (3.5-5.1) mmol/L Chloride 104 (98-107) mmol/L Carbon Dioxide 31 (21-32) mmol/L Anion Gap 4.0 (3-11) BUN 3 L (7-18) mg/dl Creatinine 0.46 L (0.6-1.2) mg/dl Est Cr Clr Drug Dosing 105.2 ml/min Est GFR ( Amer) 144.2 Est GFR (Non-Af Amer) 124.4 BUN/Creatinine Ratio 6.4 L (10-20) Glucose 82 (70-99) mg/dl Calcium 8.7 (8.5-10.1) mg/dl Total Bilirubin 0.3 (0.2-1) mg/dl AST 14 L (15-37) U/L ALT 10 L (12-78) U/L Alkaline Phosphatase 58 (45-117) U/L Troponin I < 0.015 (0-0.045) ng/ml Total Protein 6.2 L (6.4-8.2) gm/dl Albumin 2.6 L (3.4-5.0) gm/dl Globulin 3.6 (2.5-4.0) gm/dl Albumin/Globulin Ratio 0.7 L (0.9-2) /09/10 Range/Units 13:08 WBC (4.8-10.8) K/uL RBC (4.2-5.4) M/uL Hgb (12.0-16.0) g/dL Hct (37-47) % MCV (80-100) fL MCH (25-34) pg MCHC (32-36) g/dL RDW Std Deviation (36.4-46.3) fL RDW Coeff of Kaylan (11.5-14.5) % Plt Count (130-400) K/uL MPV (7.4-10.4) fL Immature Gran % (Auto) % Neut % (Auto) % Lymph % (Auto) % Russell % (Auto) % Eos % (Auto) % Baso % (Auto) % Immature Gran # (Auto) (0.00-0.02) K/uL Neut # (Auto) (1.4-6.5) K/uL Lymph # (Auto) (1.2-3.4) K/uL Russell # (Auto) (0.11-0.59) K/uL Eos # (Auto) (0-0.5) K/uL Baso # (Auto) (0-0.2) K/uL PT (9.0-12.0) Seconds INR (0.9-1.1) APTT (21.0-31.0) Seconds PTT Ratio D-Dimer 710 H* (0-500) ug/L FEU Sodium (136-145) mmol/L Potassium (3.5-5.1) mmol/L Chloride (98-107) mmol/L Carbon Dioxide (21-32) mmol/L Anion Gap (3-11) BUN (7-18) mg/dl Creatinine (0.6-1.2) mg/dl Est Cr Clr Drug Dosing ml/min Est GFR ( Amer) Est GFR (Non-Af Amer) BUN/Creatinine Ratio (10-20) Glucose (70-99) mg/dl Calcium (8.5-10.1) mg/dl Total Bilirubin (0.2-1) mg/dl AST (15-37) U/L ALT (12-78) U/L Alkaline Phosphatase (45-117) U/L Troponin I (0-0.045) ng/ml Total Protein (6.4-8.2) gm/dl Albumin (3.4-5.0) gm/dl Globulin (2.5-4.0) gm/dl Albumin/Globulin Ratio (0.9-2) Imaging Data Radiologist's Impression: Radiology results as stated below per my review and the radiologist's interpretation: XR chest 1V portable HISTORY: Atypical chest pain. COMPARISON: Chest 09/23/2018. FINDINGS: Emphysema. No pneumothorax. No pleural effusions. The heart is normal in size. No new focal lung consolidations to suggest pneumonia. No evidence for pulmonary edema. IMPRESSION: No significant change compared to the prior study. No acute process. Emphysema. Electronically signed by: Emeka Dickson M.D. 09/27/2018 1:49 PM CHEST CTA for AORTIC DISSECTION CT DOSE: 413.96 mGy.cm HISTORY: Chest pain radiating to back. TECHNIQUE: Multiaxial CT images of the chest were performed both before and after the intravenous administration of contrast to evaluate the aorta. Maximal intensity projection images were also obtained. A dose lowering technique was utilized adhering to the principles of ALARA. COMPARISON STUDY: Chest CTA 09/24/2018. FINDINGS: Noncontrast imaging through the thoracic aorta shows no evidence for an intramural hematoma. The thoracic aorta is normal in course and caliber with no evidence for dissection. A linear filling defect seen within the left upper lobe pulmonary artery on image 121. This may represent a nonocclusive pulmonary embolus or streak artifact. The remaining pulmonary arteries are patent. The heart is normal in size. Small bilateral pleural effusions have progressed. There is also a small amount of ascites seen within the upper abdomen. No mediastinal or hilar lymphadenopathy. Normal esophagus. No fractures within the visualized osseous structures. No pneumothorax. Emphysema. Small amount of mucosal material within the trachea and mainstem bronchi. This has progressed. There is new focal peripheral wedge-shaped density within the left lower lobe on image 171. This measures 9 mm. This could represent mild inflammatory/infectious change or possibly a small pulmonary infarct. No change in the 5 mm irregular density within the right upper lobe on image 89. IMPRESSION: 1. No evidence for an aortic dissection. 2. A small linear filling defect seen within a left upper lobe segmental pulmonary artery. This may represent a small nonocclusive pulmonary embolus versus artifact. Recommend follow-up venous Doppler studies to assess for a DVT. 3. There is a new small focal wedge-shaped density within the periphery of the left lower lobe. This could represent mild inflammatory/infectious change or possibly a small pulmonary infarct. 4. Redemonstration of a 5 mm irregular density within the right upper lobe. Follow-up recommended to ensure stability. 5. Small bilateral pleural effusions and mild ascites have developed in the interval. Electronically signed by: Emeka Dickson M.D. 09/27/2018 3:15 PM BILATERAL LOWER EXTREMITY VENOUS DOPPLER HISTORY: Equivocal pulmonary emboli possible PE COMPARISON STUDY: Doppler study 04/11/2017. FINDINGS: There is normal compressibility, flow, and augmentation within the bilateral lower extremity deep venous systems. IMPRESSION: No DVT within the right or left lower extremity. Electronically signed by: Slick iDaz M.D. 09/27/2018 4:26 PM ECG Data Attestation: I personally reviewed and interpreted this ECG as follows: Indication: chest pain Rate (beats per minute): 74 Rhythm: normal sinus Findings: + other (no acute ST segment abnormalities) and + T-wave inversion (Anterior); no ectopy Comparison ECG Date: from (09/25/18) Change: no significant change Blood Pressure Blood Pressure Findings: Normal blood pressure MDM Narrative The patient is a 38-year-old female who presented to the emergency department for an evaluation of chest pain. The patient was recently admitted to our facility. She complained of left-sided chest pain with radiation to the back. I was concerned that she may have developed a pulmonary embolism given her recen t hospitalization but she had recent CT the chest as well as abdomen which did not show any cause for her chest pain. She also had an echocardiogram recently. I discussed the patient's laboratory and radiographic studies with her. Her CAT scan of her chest appear to be consistent with a possible pulmonary embolism as well as possible infectious process such as pneumonia. For this reason I discussed her case with the on-call [facility] hospitalist. The patient was treated with antibiotics. I am unsure if this does represent a pulmonary embolism given the read on the CAT scan. For this reason I will defer anticoagulation to the inpatient team. Impression & Plan Chest pain, Pneumonia, Hypoxia Discharge Plan Visit Data Chief Complaint: Chest Pain Stated Complaint: chest pain ED Provider: Manuel Levy Discharge Problem: Chest pain, Pneumonia, Hypoxia Patient Disposition: Being Evaluated by Hospitalist Discharge Instructions Interventions: ED Discharge Assessment Last Done: 09/27/18 17:54 Forms Stand Alone Forms: Call Back Authorization, [facility] Prescriptions Prescriptions: No Action quetiapine 25 mg tablet 25 mg PO HS RF: 0 ascorbic acid (vitamin C) [Vitamin C] 1,000 mg Tablet PO QAM RF: 0 vitamin A 8,000 unit Capsule PO QAM RF: 0 quetiapine 200 mg tablet 200 mg PO HS RF: 0 sumatriptan succinate 50 mg tablet 50 mg PO UD PRN (Reason: Migraine Headache) RF: 0 cyanocobalamin (vitamin B-12) [Vitamin B-12] 500 mcg Tablet 500 mcg PO QAM RF: 0 gabapentin 300 mg capsule 300 mg PO HS RF: 0 sertraline [Zoloft] 25 mg tablet 25 mg PO QAM RF: 0 vitamin B complex Tablet 1 tab PO QAM RF: 0 albuterol sulfate [Ventolin HFA] 90 mcg/actuation HFA aerosol inhaler 2 puff inhalation Q6H PRN (Reason: Shortness Of Breath Or Wheezing) RF: 0 vitamin E 400 unit Capsule 400 unit PO QAM RF: 0 prazosin 2 mg capsule 2 mg PO HS RF: 0 hydroxyzine pamoate [Vistaril] 25 mg Capsule 25 mg PO TID PRN (Reason: Anxiety) RF: 0 cholecalciferol (vitamin D3) [Vitamin D3] 400 unit Capsule 400 unit PO QAM RF: 0 Dexilant 30 mg Capsule,Biphase Delayed Releas 30 mg PO PM RF: 0 calcium-vitamin D3-vitamin K [Citracal Chew] 500 mg-1,000 unit-40 mcg Tablet,Chewable 1 tab PO QAM RF: 0 Flintstones Gummies Tablet,Chewable 1 tab PO QAM RF: 0 Breo Ellipta 100-25 mcg/dose blister with device 1 inh inhalation DAILY RF: 0 mesalamine [Delzicol] 400 mg capsule (with del rel tablets) 1,600 mg PO TID RF: 0 amoxicillin-pot clavulanate 875-125 mg Tablet 1 tab PO BIDM 5 Days Qty: 10 RF: 0 atenolol 25 mg tablet 12.5 mg PO QAM Qty: 0 RF: 0 Referrals Referrals: Kathy Stoddard DO [Primary Care Provider] - Discharge Problem: Chest pain Qualifiers: Chest pain type: unspecified Qualified Code(s): R07.9 - Chest pain, unspecified Pneumonia Qualifiers: Pneumonia type: due to unspecified organism Laterality: left Lung location: lower lobe of lung Qualified Code(s): J18.1 - Lobar pneumonia, unspecified organism The scribe's documentation has been prepared under my direction and personally reviewed by me in its entirety. I confirm that the note above accurately reflects all work, treatment, procedures, and medical decision making performed by me.
[2018-09-27] MEDS ORDERED: Heparin IV Standard *NO* Bolus IV ONE (18:30)
[2018-09-27] MEDS ORDERED: POLYETHYLENE (MIRALAX) 17 GM PACK PO PRN (18:30)
[2018-09-27] MEDS ORDERED: ONDANSETRON INJ 2 MG/ML 2 ML VIAL IV PRN (18:30)
[2018-09-27] MEDS ORDERED: SODIUM CHLORIDE 0.9% 500 ML IV ONE (18:30)
[2018-09-27] MEDS ORDERED: ACETAMINOPHEN 325 MG TAB PO PRN (18:30)
[2018-09-27] MEDS ORDERED: ALBUT/IPRATROP 3MG/0.5MG NEB 3 ML VIAL NEB PRN (19:16)
[2018-09-27] MEDS ORDERED: PIPERACILL/TAZOBAC CONSULT ACTIVE PRN (19:16)
[2018-09-27] MEDS ORDERED: Heparin IV Standard *NO* Bolus IV SCH (19:30)
[2018-09-27] MEDS: Heparin Adult STANDARD Wt-Based Dextrose 5% 25,000 units/500 mL IV SCH (19:45)
[2018-09-27] MEDS ORDERED: PIPERACILLIN/TAZOBACTAM 3.375 GM in DEXTROSE 5% 100 ML IV ONE (19:45)
[2018-09-27] MEDS: ALBUT/IPRATROP 3MG/0.5MG NEB 3 ML VIAL NEB SCH (19:50)
[2018-09-27] MEDS: NICOTINE 14 MG/24 HR PATCH TD SCH (20:26)
[2018-09-27] MEDS: MESALAMINE 400 MG CAPDR PO SCH (20:29)
[2018-09-27] MEDS: PRAZOSIN HCL 1 MG CAP PO SCH (20:32)
[2018-09-27] MEDS: GABAPENTIN 300 MG CAP PO SCH (20:32)
[2018-09-27] MEDS: QUETIAPINE FUMARATE 200 MG TAB PO SCH (20:33)
[2018-09-27] MEDS: QUETIAPINE FUMARATE 25 MG TABLET PO SCH (20:33)
[2018-09-27] MEDS: PANTOprazole 40 MG TAB PO SCH (20:33)
[2018-09-27] MEDS ORDERED: TRAMADOL HCL 50 MG TABLET PO PRN (20:47)
[2018-09-28] MEDS: PIPERACILLIN/TAZOBACTAM 3.375 GM in DEXTROSE 5% 100 ML IV SCH ×2 (01:49→10:08)
[2018-09-28 02:10] LABS: Partial Thromboplastin Ratio 1.6; Partial Thromboplastin Time 44.6 Seconds (21.0-31.0)
[2018-09-28] MEDS ORDERED: HEPARIN IV BOLUS 2,000 UNITS in SYRINGE 0 ML IV ONE ×2 (03:00→17:10)
[2018-09-28] MEDS: OXYCODONE HCL IR 5 MG TAB (IMMEDIATE RELEASE) PO PRN ×3 (03:13→22:05)
[2018-09-28] MEDS: ALBUT/IPRATROP 3MG/0.5MG NEB 3 ML VIAL NEB SCH (07:13)
[2018-09-28] MEDS: BREO ELLIPTA - ORDER AWAITING ACTION SCH ×3 (09:13→15:43)
[2018-09-28 09:17] LABS: Basophils # (auto) 0.05 K/uL (0-0.2); Basophils % (auto) 1.3 %; Eosinophils # (auto) 0.14 K/uL (0-0.5); Eosinophils % (auto) 3.6 %; Hematocrit (blood only) 35.7 % (37-47); Hemoglobin 11.5 g/dL (12.0-16.0); Immature Granulocytes # (auto) 0.01 K/uL (0.00-0.02); Immature Granulocytes % (auto) 0.3 %; Lymphocytes # (auto) 1.02 K/uL (1.2-3.4); Lymphocytes % (auto) 26.5 %; Mean Corpuscular Hgb Conc 32.2 g/dL (32-36); Mean Corpuscular Volume 89.9 fL (80-100); Mean Platelet Volume 9.4 fL (7.4-10.4); Monocytes % (auto) 7.8 %; Neutrophils # (auto) 2.33 K/uL (1.4-6.5); Neutrophils % (auto) 60.5 %; Platelet Count 186 K/uL (130-400); RDW Coefficient of Variation 15.5 % (11.5-14.5); Red Blood Count 3.97 M/uL (4.2-5.4); White Blood Count 3.85 K/uL (4.8-10.8)
--- NOTE | 2018-09-28 09:29 | Hospitalist Progress Note ---
Date of Service September 28, 2018 Assessment & Plan (1) Pneumonia: Acute Pulmonary Embolus Left Lower Lobe Pneumonia/Possible pulmonary infarct Acute on chronic respiratory failure with hypoxia: --CTA:No evidence for an aortic dissection. A small linear filling defect seen within a left upper lobe segmental pulmonary artery. This may represent a small nonocclusive pulmonary embolus versus artifact. Recommend follow-up venous Doppler studies to assess for a DVT. There is a new small focal wedge-shaped density within the periphery of the left lower lobe. This could represent mild inflammatory/infectious change or possibly a small pulmonary infarct. Redemonstration of a 5 mm irregular density within the right upper lobe. Follow- up recommended to ensure stability. Small bilateral pleural effusions and mild ascites have developed in the interval. --Venous doppler: No DVT --Likely precipitated due to immobilization from recent hospitalization --Start on Heparin ggt --Also started on Zosyn (To cover both Pneumonia, Phlegmon noted on prior abd CT) (Hold Augmentin) --Patient is on 2 L of oxygen as needed for asthma/COPD --Oxygen supplementation as needed Crohn's disease Fistulizing ileocolonic Crohn's disease S/P right hemicolectomy in 2008 then subsequent colectomy with Ileostomy in 2013 Interval progression of rectovaginal fistula, findings of phlegmon noted on recent CT abdomen Hold Augmentin--was advised to complete a 7-day course during prior discharge Continue Zosyn as above Currently denies any abdominal pain Consider GI eval if patient develops abdominal pain Continue PPI, Mesalamine Planned to be started on Remicade as outpatient H/O Severe COPD On 2 liters of Oxygen PRN at home No signs of Exacerbation Continue home inhalers Nebs PRN Bipolar disorder Continue home meds Tobacco use disorder [employer] to quit smoking Nicotine patch DVT Px: On Heparin ggt Code Status: Full Code Disposition: Expect to discharge home when stable (2) Chest pain: Possible Acute Pulmonary Embolus, Left Upper Lobe Possible Left Lower Lobe Pneumonia vs. Possible pulmonary infarct Acute on chronic respiratory failure with hypoxia: --CTA:No evidence for an aortic dissection. A small linear filling defect seen within a left upper lobe segmental pulmonary artery. This may represent a small nonocclusive pulmonary embolus versus artifact. Recommend follow-up venous Doppler studies to assess for a DVT. There is a new small focal wedge-shaped density within the periphery of the left lower lobe. This could represent mild inflammatory/infectious change or possibly a small pulmonary infarct. Redemon stration of a 5 mm irregular density within the right upper lobe. Follow-up recommended to ensure stability. Small bilateral pleural effusions and mild ascites have developed in the interval. --Venous doppler: No DVT -- D dimer 700 -- remain on 2 L Nasal cannula chest pain about the same, relieved by Oxycodone -- Heparin drip started also on Zosyn IV Day 2 -- given equivocal findings on CT chest, will consult Pulmonology Crohn's disease Fistulizing ileocolonic Crohn's disease S/P right hemicolectomy in 2008 then subsequent colectomy with Ileostomy in 2013 Interval progression of rectovaginal fistula, findings of phlegmon noted on recent CT abdomen Hold Augmentin--was advised to complete a 7-day course during prior discharge Continue Zosyn as above Currently denies any abdominal pain Continue PPI, Mesalamine Planned to be started on Remicade as outpatient will consult Wound Care Service H/O Severe COPD On 2 liters of Oxygen PRN at home No signs of Exacerbation Continue home inhalers Nebs PRN Bipolar disorder Continue home meds Tobacco use disorder [employer] to quit smoking Nicotine patch DVT Px: On Heparin ggt Disposition pending will order PT/OT Subjective ff up for chest pain, possible PE and pulmonary infarct on chest CT seen resting in bed, not in distress states pain level is about the same as yesterday, about 8/10, relieved by Oxycodone- worse with movement and with inspiration denies active shortness of breath while on 2 L O2 via NC denies cough, phlegm, hemoptysis, fever/chills no abdominal pain, pain over the colostomy site no other symptoms Review of Systems Review of Systems: All systems reviewed & are unremarkable except as noted in HPI & below Physical Exam Physical Exam: General- oriented x 3, not in distress, speaks in sentences wi th no effort or accessory muscle use thin, frail appearing Head- atraumatic Eyes- PERRL, EOMI, anicteric ENT- oropharynx clear Neck- supple, no JVD, no adenopathy, no thyromegaly; carotids +2/2, no bruits appreciated Lungs- clear to auscultation bilaterally, no rales/wheezes Heart- normal rate, regular rhythm; no murmur, no gallop, no rub appreciated Abdomen- normal bowel sounds, nondistended, soft, nontender, no masses or hepatosplenomegaly colostomy site: (+) surrounding moderate erythema, dryness of the skin, non tender, no warth Extremities- no pretibial edema, no calf tenderness; peripheral pulses intact Neuro- alert, oriented x 3; CN 2-12 grossly intact; motor 5/5 bilaterally;sensation 100% on all extremities; no other gross focal neurologic deficits Skin- warm & dry Results & Data Vital Signs (Past 12 Hours) Vital Signs Temp Pulse Pulse Resp BP Pulse Ox 09/28/18 07:15 77 18 95 09/28/18 07:08 36.3 C L 57 L 18 88/50 L 97 09/28/18 03:36 36.3 C L 63 18 92/51 L 97 09/28/18 00:34 94 H 09/27/18 23:43 36.9 C 80 18 86/45 L 95 Laboratory Results Laboratory Results - last 24 hr 09/27/18 09/27/18 09/27/18 13:07 13:08 13:08 WBC 5.47 RBC 4.52 Hgb 12.8 Hct 39.3 MCV 86.9 MCH 28.3 MCHC 32.6 RDW Std Deviation 48.7 H RDW Coeff of Kaylan 15.3 H Plt Count 220 MPV 9.4 Immature Gran % (Auto) 0.2 Neut % (Auto) 77.7 Lymph % (Auto) 9.5 [place] % (Auto) 9.3 Eos % (Auto) 2.2 Baso % (Auto) 1.1 Immature Gran # (Auto) 0.01 Neut # (Auto) 4.25 Lymph # (Auto) 0.52 L [place] # (Auto) 0.51 Eos # (Auto) 0.12 Baso # (Auto) 0.06 PT 10.7 INR 1.0 APTT 28.6 PTT Ratio 1.1 D-Dimer Sodium 140 Potassium 3.6 Chloride 104 Carbon Dioxide 31 Anion Gap 4.0 BUN 3 L Creatinine 0.46 L Est Cr Clr Drug Dosing 105.2 Est GFR ( Amer) 144.2 Est GFR (Non-Af Amer) 124.4 BUN/Creatinine Ratio 6.4 L Glucose 82 Calcium 8.7 Magnesium Total Bilirubin 0.3 AST 14 L ALT 10 L Alkaline Phosphatase 58 Troponin I < 0.015 Total Protein 6.2 L Albumin 2.6 L Globulin 3.6 Albumin/Globulin Ratio 0.7 L 09/27/18 09/27/18 09/28/18 13:08 19:38 01:39 WBC RBC Hgb Hct MCV MCH MCHC RDW Std Deviation RDW Coeff of Kaylan Plt Count MPV Immature Gran % (Auto) Neut % (Auto) Lymph % (Auto) [place] % (Auto) Eos % (Auto) Baso % (Auto) Immature Gran # (Auto) Neut # (Auto) Lymph # (Auto) [place] # (Auto) Eos # (Auto) Baso # (Auto) PT INR APTT 44.6 H PTT Ratio 1.6 D-Dimer 710 H* Sodium Potassium Chloride Carbon Dioxide Anion Gap BUN Creatinine Est Cr Clr Drug Dosing Est GFR ( Amer) Est GFR (Non-Af Amer) BUN/Creatinine Ratio Glucose Calcium Magnesium Total Bilirubin AST ALT Alkaline Phosphatase Troponin I < 0.015 Total Protein Albumin Globulin Albumin/Globulin Ratio 09/28/18 09/28/18 09/28/18 09:10 09:10 09:10 WBC 3.85 L RBC 3.97 L Hgb 11.5 L Hct 35.7 L MCV 89.9 MCH 29.0 MCHC 32.2 RDW Std Deviation 51.0 H RDW Coeff of Kaylan 15.5 H Plt Count 186 MPV 9.4 Immature Gran % (Auto) 0.3 Neut % (Auto) 60.5 Lymph % (Auto) 26.5 [place] % (Auto) 7.8 Eos % (Auto) 3.6 Baso % (Auto) 1.3 Immature Gran # (Auto) 0.01 Neut # (Auto) 2.33 Lymph # (Auto) 1.02 L [place] # (Auto) 0.30 Eos # (Auto) 0.14 Baso # (Auto) 0.05 PT INR APTT Pending PTT Ratio Pending D-Dimer Sodium Pending Potassium Pending Chloride Pending Carbon Dioxide Pending Anion Gap Pending BUN Pending Creatinine Pending Est Cr Clr Drug Dosing Pending Est GFR ( Amer) Pending Est GFR (Non-Af Amer) Pending BUN/Creatinine Ratio Pending Glucose Pending Calcium Pending Magnesium Pending Total Bilirubin AST ALT Alkaline Phosphatase Troponin I Total Protein Albumin Globulin Albumin/Globulin Ratio (1) Pneumonia Laterality: left Lung location: lower lobe of lung Pneumonia type: due to unspecified organism Qualified Code(s): J18.1 - Lobar pneumonia, unspecified organism
[2018-09-28] MEDS ORDERED: SODIUM CHLORIDE 0.9% 500 ML IV SCH (09:30)
[2018-09-28 09:38] LABS: Partial Thromboplastin Ratio 3.4
[2018-09-28 09:41] LABS: BUN Creatinine Ratio 5.4 (10-20); Calcium 8.3 mg/dl (8.5-10.1); Creatinine Clr Calc Pharmacy 79.8 ml/min; Est GFR (African American) 133.6; Est GFR (Non-African American) 115.3; Potassium 3.1 mmol/L (3.5-5.1)
[2018-09-28 09:43] LABS: Partial Thromboplastin Time 91.4 Seconds (21.0-31.0)
[2018-09-28] MEDS: NICOTINE 14 MG/24 HR PATCH TD SCH (10:01)
[2018-09-28] MEDS: MESALAMINE 400 MG CAPDR PO SCH ×3 (10:01→20:28)
[2018-09-28] MEDS: SERTRALINE HCL 50 MG TABLET PO SCH (10:03)
[2018-09-28] MEDS: ATENOLOL 25 MG TABLET PO SCH (10:03)
--- NOTE | 2018-09-28 10:42 | Pulmonary Consultation ---
Date of Consultation September 28, 2018 Assessment & Plan (1) Chest pain: chest pain I think it is unlikely that a PE is causing her chest pain. on review of the CT scan I think it is unlikely it is a true PE but I am unable to rule it out for sure. even if it is a PE is is small and does not really explain her presentation. I discussed the risk and benefits of treatment vs observation with anticoagulation and I would let her decide the role of anticoagulation as long as she understands the risks and benefits. small infiltrate on CT scan most likely atelectasis/ small inflammatory change. She does not have pneumonia and does not need abx for pneumonia COPD - continue albuterol, ipratropium. continue her breo and incruse on discharge RUL pulmonary nodule - needs [address] as she is a smoker but this does not appear concerning smoking cessation History of Present Illness Attending Physician: Waldo Nascimento MD History of Present Illness 38 y/o female with a history of crohns, COPD/asthma, HTN who presents with chest pain and shortness of breath which started about a week ago. She initially presented to the ED where she had CT to rule out dissection and was admitted to rule out ACS. she was discharged 09/26 then presented on 09/27 with similar pain. on CTA this time she was found to have a questionable PE. she denies long plane rides or car trips. no family history of any clotting or bleeding disorders. she says that currently her pain is about the same. She say that this feels different than her COPD and she feels like her COPD is well controlled on her current medications. Allergies Allergy/AdvReac Type Severity Reaction Status Date / Time codeine Allergy Severe SOB, Verified 09/27/18 13:10 NAUSEA -- MORPHINE OK, TAKES LORTAB AT HOME metronidazole Allergy Severe chest pain Verified 09/27/18 13:10 Cipro Allergy Unknown "I GET Verified 04/20/15 21:21 SICK AND CAN'T BREATHE RIGHT." ciprofloxacin Allergy Unknown "I GET Verified 09/27/18 13:10 SICK AND CAN'T BREATHE RIGHT." latex Allergy Unknown RASH Verified 09/27/18 13:10 Penicillins Allergy Unknown CHEST Unverified 09/27/18 13:10 TIGHTNESS prednisone AdvReac Intermediate Nausea Unverified 09/27/18 13:10 aspirin AdvReac Mild GI DISTRESS Verified 09/27/18 13:10 IRON INFUSIONS Allergy Unknown Chest Uncoded 09/27/18 13:10 tightness and SOB. Home Medications Home Medications Medication Instructions Recorded Confirmed Type Breo Ellipta 1 inh INHALATION DAILY 09/23/18 09/27/18 History Dexilant 30 mg PO PM 09/23/18 09/27/18 History Flintstones Gummies 1 tab PO QAM 09/23/18 09/27/18 History albuterol sulfate [Ventolin HFA] 2 puff INHALATION Q6H PRN 09/23/18 09/27/18 History ascorbic acid (vitamin C) [Vitamin 0 mg PO QAM 09/23/18 09/27/18 History C] calcium-vitamin D3-vitamin K 1 tab PO QAM 09/23/18 09/27/18 History [Citracal Chew] cholecalciferol (vitamin D3) 400 unit PO QAM 09/23/18 09/27/18 History [Vitamin D3] cyanocobalamin (vitamin B-12) 500 mcg PO QAM 09/23/18 09/27/18 History [Vitamin B-12] gabapentin 300 mg PO HS 09/23/18 09/27/18 History hydroxyzine pamoate [Vistaril] 25 mg PO TID PRN 09/23/18 09/27/18 History mesalamine [Delzicol] 1,600 mg PO TID 09/23/18 09/27/18 History prazosin 2 mg PO HS 09/23/18 09/27/18 History quetiapine 25 mg PO HS 09/23/18 09/27/18 History quetiapine 200 mg PO HS 09/23/18 09/27/18 History sertraline [Zoloft] 25 mg PO QAM 09/23/18 09/27/18 History sumatriptan succinate 50 mg PO UD PRN 09/23/18 09/27/18 History vitamin A 0 unit PO QAM 09/23/18 09/27/18 History vitamin B complex 1 tab PO QAM 09/23/18 09/27/18 History vitamin E 400 unit PO QAM 09/23/18 09/27/18 History amoxicillin-pot clavulanate 1 tab PO BIDM 5 Days #10 tab 09/26/18 09/27/18 Rx atenolol 12.5 mg PO QAM #0 tab 09/26/18 09/27/18 Rx Patient History Medical History Hypertension Crohn's disease (Chronic) Family History Unknown Family history non-contributory Social History Preferred Language: Yi Communication Ability: Effective Lean Sensei Required: No Beliefs That Will Affect Care: None Current Living Situation: Spouse Other Information That Helps Us Care for You: No Feels Safe at Home: Yes Safety Concerns: Feels Safe At This Time Smoking Status: Current every day smoker Tobacco Type: cigarettes Cigarettes Per Day: 12 Do You Dip or Chew Tobacco: No Second Hand Exposure: No Tobacco Cessation Education Requested by Patient: No Hx Alcohol Use: No Hx Substance Use: No Review of Systems Review of Systems: Constitutional: no fevers no chills no weight loss Eyes: no blurry or double vision EENT: no sore throat, no congestion Respiratory: + cough + shortness of breath Cardiovascular: + chest pain no palpitations GI: no abdominal pain, + nausea, no vomiting, no diarrhea, no constipation Gu: no dysuria, no frequency MSK: no joint pain, no muscle aches Skin: no rash Neuro: no headache, + dizziness, no focal weakness Endocrine: no heat or cold intolerance heme: no easy bruising, no lymphadenopathy Psych: no depression, no anxiety Physical Exam Physical Exam: Constitutional: Comfortable NAD cachectic HEENT: normocephalic atraumatic. MMM. no cervical lymphadenopathy CV: RRR nl s1,s2 no murmurs rubs or gallops Lungs: clear to auscultation bilaterally. no accessory muscle use Abd: soft nontender nondistended. normal bowel sounds Ext: no edema. no cyanosis, no clubbing Skin: warm dry Neuro: alert and oriented. moving all extremities Psych: depressed affect Results & Data Vital Signs (Past 12 Hours) Vital Signs Temp Pulse Pulse Resp BP Pulse Ox 09/28/18 07:15 77 18 95 09/28/18 07:08 36.3 C L 57 L 18 88/50 L 97 09/28/18 03:36 36.3 C L 63 18 92/51 L 97 09/28/18 00:34 94 H 09/27/18 23:43 36.9 C 80 18 86/45 L 95 Laboratory Results Laboratory Results - last 24 hr 09/27/18 09/27/18 09/27/18 13:07 13:08 13:08 WBC 5.47 RBC 4.52 Hgb 12.8 Hct 39.3 MCV 86.9 MCH 28.3 MCHC 32.6 RDW Std Deviation 48.7 H RDW Coeff of Kaylan 15.3 H Plt Count 220 MPV 9.4 Immature Gran % (Auto) 0.2 Neut % (Auto) 77.7 Lymph % (Auto) 9.5 [place] % (Auto) 9.3 Eos % (Auto) 2.2 Baso % (Auto) 1.1 Immature Gran # (Auto) 0.01 Neut # (Auto) 4.25 Lymph # (Auto) 0.52 L [place] # (Auto) 0.51 Eos # (Auto) 0.12 Baso # (Auto) 0.06 PT 10.7 INR 1.0 APTT 28.6 PTT Ratio 1.1 D-Dimer Sodium 140 Potassium 3.6 Chloride 104 Carbon Dioxide 31 Anion Gap 4.0 BUN 3 L Creatinine 0.46 L Est Cr Clr Drug Dosing 105.2 Est GFR ( Amer) 144.2 Est GFR (Non-Af Amer) 124.4 BUN/Creatinine Ratio 6.4 L Glucose 82 Calcium 8.7 Magnesium Total Bilirubin 0.3 AST 14 L ALT 10 L Alkaline Phosphatase 58 Troponin I < 0.015 Total Protein 6.2 L Albumin 2.6 L Globulin 3.6 Albumin/Globulin Ratio 0.7 L 09/27/18 09/27/18 09/28/18 13:08 19:38 01:39 WBC RBC Hgb Hct MCV MCH MCHC RDW Std Deviation RDW Coeff of Kaylan Plt Count MPV Immature Gran % (Auto) Neut % (Auto) Lymph % (Auto) [place] % (Auto) Eos % (Auto) Baso % (Auto) Immature Gran # (Auto) Neut # (Auto) Lymph # (Auto) [place] # (Auto) Eos # (Auto) Baso # (Auto) PT INR APTT 44.6 H PTT Ratio 1.6 D-Dimer 710 H* Sodium Potassium Chloride Carbon Dioxide Anion Gap BUN Creatinine Est Cr Clr Drug Dosing Est GFR ( Amer) Est GFR (Non-Af Amer) BUN/Creatinine Ratio Glucose Calcium Magnesium Total Bilirubin AST ALT Alkaline Phosphatase Troponin I < 0.015 Total Protein Albumin Globulin Albumin/Globulin Ratio 09/28/18 09/28/18 09/28/18 09:10 09:10 09:10 WBC 3.85 L RBC 3.97 L Hgb 11.5 L Hct 35.7 L MCV 89.9 MCH 29.0 MCHC 32.2 RDW Std Deviation 51.0 H RDW Coeff of Kaylan 15.5 H Plt Count 186 MPV 9.4 Immature Gran % (Auto) 0.3 Neut % (Auto) 60.5 Lymph % (Auto) 26.5 [place] % (Auto) 7.8 Eos % (Auto) 3.6 Baso % (Auto) 1.3 Immature Gran # (Auto) 0.01 Neut # (Auto) 2.33 Lymph # (Auto) 1.02 L [place] # (Auto) 0.30 Eos # (Auto) 0.14 Baso # (Auto) 0.05 PT INR APTT 91.4 H* PTT Ratio 3.4 D-Dimer Sodium 141 Potassium 3.1 L Chloride 106 Carbon Dioxide 30 Anion Gap 5.0 BUN 3 L Creatinine 0.58 L Est Cr Clr Drug Dosing 79.8 Est GFR ( Amer) 133.6 Est GFR (Non-Af Amer) 115.3 BUN/Creatinine Ratio 5.4 L Glucose 100 H Calcium 8.3 L Magnesium 2.0 Total Bilirubin AST ALT Alkaline Phosphatase Troponin I Total Protein Albumin Globulin Albumin/Globulin Ratio Diagnostic Findings BILATERAL LOWER EXTREMITY VENOUS DOPPLER HISTORY: Equivocal pulmonary emboli possible PE COMPARISON STUDY: Doppler study 04/11/2017. FINDINGS: There is normal compressibility, flow, and augmentation within the bilateral lower extremity deep venous systems. IMPRESSION: No DVT within the right or left lower extremity. Electronically signed by: Slick Diaz M.D. 09/27/2018 4:26 PM CHEST CTA for AORTIC DISSECTION CT DOSE: 413.96 mGy.cm HISTORY: Chest pain radiating to back. TECHNIQUE: Multiaxial CT images of the chest were performed both before and after the intravenous administration of contrast to evaluate the aorta. Maximal intensity projection images were also obtained. A dose lowering technique was utilized adhering to the principles of ALARA. COMPARISON STUDY: Chest CTA 09/24/2018. FINDINGS: Noncontrast imaging through the thoracic aorta shows no evidence for an intramural hematoma. The thoracic aorta is normal in course and caliber with no evidence for dissection. A linear filling defect seen within the left upper lobe pulmonary artery on image 121. This may represent a nonocclusive pulmonary embolus or streak artifact. The remaining pulmonary arteries are patent. The heart is normal in size. Small bilateral pleural effusions have progressed. There is also a small amount of ascites seen within the upper abdomen. No mediastinal or hilar lymphadenopathy. Normal esophagus. No fractures within the visualized osseous structures. No pneumothorax. Emphysema. Small amount of mucosal material within the trachea and mainstem bronchi. This has progressed. There is new focal peripheral wedge-shaped density within the left lower lobe on image 171. This measures 9 mm. This could represent mild inflammatory/infectious change or possibly a small pulmonary infarct. No change in the 5 mm irregular density within the right upper lobe on image 89. IMPRESSION: 1. No evidence for an aortic dissection. 2. A small linear filling defect seen within a left upper lobe segmental pulmonary artery. This may represent a small nonocclusive pulmonary embolus versus artifact. Recommend follow-up venous Doppler studies to assess for a DVT. 3. There is a new small focal wedge-shaped density within the periphery of the left lower lobe. This could represent mild inflammatory/infectious change or possibly a small pulmonary infarct. 4. Redemonstration of a 5 mm irregular density within the right upper lobe. Follow-up recommended to ensure stability. 5. Small bilateral pleural effusions and mild ascites have developed in the interval. Electronically signed by: Emeka Dickson M.D. 09/27/2018 3:15 PM
[2018-09-28] MEDS: SODIUM CHLORIDE 0.9% 1000ML 1,000 ML IV SCH (10:51)
[2018-09-28] MEDS: IPRATROPIUM BROMIDE/ALBUTEROL respimat INH INH SCH ×3 (14:03→20:27)
--- NOTE | 2018-09-28 15:13 | Hospitalist Progress Note ---
Date of Service September 28, 2018 Assessment & Plan (1) Pneumonia: Acute Pulmonary Embolus Left Lower Lobe Pneumonia/Possible pulmonary infarct Acute on chronic respiratory failure with hypoxia: --CTA:No evidence for an aortic dissection. A small linear filling defect seen within a left upper lobe segmental pulmonary artery. This may represent a small nonocclusive pulmonary embolus versus artifact. Recommend follow-up venous Doppler studies to assess for a DVT. There is a new small focal wedge-shaped density within the periphery of the left lower lobe. This could represent mild inflammatory/infectious change or possibly a small pulmonary infarct. Redemonstration of a 5 mm irregular density within the right upper lobe. Follow- up recommended to ensure stability. Small bilateral pleural effusions and mild ascites have developed in the interval. --Venous doppler: No DVT --Likely precipitated due to immobilization from recent hospitalization --Start on Heparin ggt --Also started on Zosyn (To cover both Pneumonia, Phlegmon noted on prior abd CT) (Hold Augmentin) --Patient is on 2 L of oxygen as needed for asthma/COPD --Oxygen supplementation as needed Crohn's disease Fistulizing ileocolonic Crohn's disease S/P right hemicolectomy in 2008 then subsequent colectomy with Ileostomy in 2013 Interval progression of rectovaginal fistula, findings of phlegmon noted on recent CT abdomen Hold Augmentin--was advised to complete a 7-day course during prior discharge Continue Zosyn as above Currently denies any abdominal pain Consider GI eval if patient develops abdominal pain Continue PPI, Mesalamine Planned to be started on Remicade as outpatient H/O Severe COPD On 2 liters of Oxygen PRN at home No signs of Exacerbation Continue home inhalers Nebs PRN Bipolar disorder Continue home meds Tobacco use disorder 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 Possible pulmonary infarct Acute on chronic respiratory failure with hypoxia: --CTA:No evidence for an aortic dissection. A small linear filling defect seen within a left upper lobe segmental pulmonary artery. This may represent a small nonocclusive pulmonary embolus versus artifact. Recommend follow-up venous Doppler studies to assess for a DVT. There is a new small focal wedge-shaped density within the periphery of the left lower lobe. This could represent mild inflammatory/infectious change or possibly a small pulmonary infarct. Redemon stration of a 5 mm irregular density within the right upper lobe. Follow-up recommended to ensure stability. Small bilateral pleural effusions and mild ascites have developed in the interval. --Venous doppler: No DVT -- D dimer 700 -- remain on 2 L Nasal cannula chest pain about the same, relieved by Oxycodone -- Heparin drip started also on Zosyn IV Day 2 -- given equivocal findings on CT chest, will consult Pulmonology Crohn's disease Fistulizing ileocolonic Crohn's disease S/P right hemicolectomy in 2008 then subsequent colectomy with Ileostomy in 2013 Interval progression of rectovaginal fistula, findings of phlegmon noted on recent CT abdomen Hold Augmentin--was advised to complete a 7-day course during prior discharge Continue Zosyn as above Currently denies any abdominal pain Continue PPI, Mesalamine Planned to be started on Remicade as outpatient will consult Wound Care Service H/O Severe COPD On 2 liters of Oxygen PRN at home No signs of Exacerbation Continue home inhalers Nebs PRN Bipolar disorder Continue home meds Tobacco use disorder 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 Nicotine patch DVT Px: On Heparin ggt Disposition pending will order PT/OT Subjective ff up for chest pain, pulmonary embolism seen with TAYLOR Velasco at the bedside throughout the whole encounter seen resting in bed, not in distress states chest pain - upper chest region- is about the same as yesterday on 2 L NC, denies shortness of breath, cough, sputum, fever/chills Results & Data Vital Signs (Past 12 Hours) Vital Signs Temp Pulse Pulse Resp BP Pulse Ox 09/28/18 12:58 72 90/51 L 09/28/18 11:05 61 80/41 L 09/28/18 10:45 36.7 C 63 18 80/39 L 96 09/28/18 10:39 48 L 09/28/18 07:15 77 18 95 09/28/18 07:08 36.3 C L 57 L 18 88/50 L 97 09/28/18 03:36 36.3 C L 63 18 92/51 L 97 (1) Pneumonia Laterality: left Lung location: lower lobe of lung Pneumonia type: due to unspecified organism Qualified Code(s): J18.1 - Lobar pneumonia, unspecified organism
[2018-09-28 16:52] LABS: Partial Thromboplastin Ratio 1.6; Partial Thromboplastin Time 43.1 Seconds (21.0-31.0)
[2018-09-28] MEDS: AMOXICILLIN/CLAVULANATE 875 MG TAB PO SCH (17:19)
[2018-09-28] MEDS ORDERED: POTASSIUM CHLORIDE 20 MEQ TABCR PO STA (18:13)
[2018-09-28] MEDS: PANTOprazole 40 MG TAB PO SCH (20:29)
[2018-09-28] MEDS: PRAZOSIN HCL 1 MG CAP PO SCH (20:29)
[2018-09-28] MEDS: GABAPENTIN 300 MG CAP PO SCH (20:29)
[2018-09-28] MEDS: QUETIAPINE FUMARATE 25 MG TABLET PO SCH (20:30)
[2018-09-28] MEDS: QUETIAPINE FUMARATE 200 MG TAB PO SCH (20:30)
[2018-09-28 23:45] LABS: Partial Thromboplastin Time 54.8 Seconds (21.0-31.0)
[2018-09-29] MEDS: BREO ELLIPTA - ORDER AWAITING ACTION SCH ×4 (00:14→23:55)
[2018-09-29] MEDS: SODIUM CHLORIDE 0.9% 1000ML 1,000 ML IV SCH ×2 (02:24→20:54)
[2018-09-29] MEDS: OXYCODONE HCL IR 5 MG TAB (IMMEDIATE RELEASE) PO PRN ×4 (03:46→20:54)
[2018-09-29] MEDS: Heparin Adult STANDARD Wt-Based Dextrose 5% 25,000 units/500 mL IV SCH (05:01)
[2018-09-29 08:27] LABS: Creatinine Clr Calc Pharmacy 102.9 ml/min; Est GFR (African American) 144.2; Est GFR (Non-African American) 124.4; Partial Thromboplastin Ratio 1.9
[2018-09-29 08:29] LABS: Partial Thromboplastin Time 50.5 Seconds (21.0-31.0)
[2018-09-29] MEDS: MESALAMINE 400 MG CAPDR PO SCH ×3 (08:45→20:57)
[2018-09-29] MEDS: AMOXICILLIN/CLAVULANATE 875 MG TAB PO SCH ×2 (08:47→16:00)
[2018-09-29] MEDS: SERTRALINE HCL 50 MG TABLET PO SCH (08:47)
[2018-09-29] MEDS: ATENOLOL 25 MG TABLET PO SCH (08:47)
[2018-09-29] MEDS: IPRATROPIUM BROMIDE/ALBUTEROL respimat INH INH SCH ×4 (08:48→20:56)
[2018-09-29] MEDS: NICOTINE 14 MG/24 HR PATCH TD SCH (08:48)
[2018-09-29 16:25] LABS: Basophils # (auto) 0.02 K/uL (0-0.2); Basophils % (auto) 0.5 %; Eosinophils # (auto) 0.12 K/uL (0-0.5); Eosinophils % (auto) 3.2 %; Hematocrit (blood only) 34.2 % (37-47); Hemoglobin 10.9 g/dL (12.0-16.0); Lymphocytes # (auto) 0.55 K/uL (1.2-3.4); Lymphocytes % (auto) 14.6 %; Mean Corpuscular Hgb Conc 31.9 g/dL (32-36); Mean Corpuscular Volume 89.1 fL (80-100); Mean Platelet Volume 9.4 fL (7.4-10.4); Monocytes # (auto) 0.46 K/uL (0.11-0.59); Monocytes % (auto) 12.2 %; Neutrophils # (auto) 2.63 K/uL (1.4-6.5); Neutrophils % (auto) 69.5 %; Platelet Count 169 K/uL (130-400); RDW Coefficient of Variation 15.8 % (11.5-14.5); RDW Standard Deviation 51.7 fL (36.4-46.3); Red Blood Count 3.84 M/uL (4.2-5.4); White Blood Count 3.78 K/uL (4.8-10.8)
[2018-09-29 16:40] LABS: Calcium 8.3 mg/dl (8.5-10.1); Creatinine Clr Calc Pharmacy 81.6 ml/min; Est GFR (African American) 133.6; Est GFR (Non-African American) 115.3; Potassium 3.5 mmol/L (3.5-5.1)
--- NOTE | 2018-09-29 19:39 | Hospitalist Progress Note ---
Date of Service September 29, 2018 Assessment & Plan (1) Chest pain: Possible Acute Pulmonary Embolus, Left Upper Lobe --CTA:No evidence for an aortic dissection. A small linear filling defect seen within a left upper lobe segmental pulmonary artery. This may represent a small nonocclusive pulmonary embolus versus artifact. Recommend follow-up venous Doppler studies to assess for a DVT. There is a new small focal wedge-shaped density within the periphery of the left lower lobe. This could represent mild inflammatory/infectious change or possibly a small pulmonary infarct. Redemonstration of a 5 mm irregular density within the right upper lobe. Follow- up recommended to ensure stability. Small bilateral pleural effusions and mild ascites have developed in the interval. --Venous doppler: No DVT -- D dimer 700 -- remain on 2 L Nasal cannula Chest pain improved today --Pulmonary consulted --Discussed case with patient, regarding PE and benefits and risks of treatment with anticoagulation Patient agreeable with anticoagulation -- Heparin drip started, will transition to Lovenox 40 mg subcutaneous twice a day, start Coumadin tomorrow Zosyn transitioned to Augmentin Possible Left Lower Lobe Pneumonia vs. Possible pulmonary infarct --Pulmonary consulted --Does not recommend antibiotics for pneumonia No signs and symptoms of pneumonia Crohn's disease Fistulizing ileocolonic Crohn's disease S/P right hemicolectomy in 2008 then subsequent colectomy with Ileostomy in 2013 Interval progression of rectovaginal fistula, findings of phlegmon noted on recent CT abdomen Continue Augmentin x7 days Currently denies any abdominal pain Continue PPI, Mesalamine Planned to be started on Remicade as outpatient Wound care service consulted, likely has cutaneous candidiasis, will order Lotrisone cream twice daily H/O Severe COPD On 2 liters of Oxygen PRN at home No signs of Exacerbation Continue home inhalers Nebs PRN Bipolar disorder Continue home meds 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 Nicotine patch DVT Px: On Lovenox twice daily, start Coumadin tomorrow Disposition pending Pending PT/OT Subjective Follow-up for acute pulmonary embolism, chest pain Patient seen with TAYLOR Heard at the bedside throughout the whole encounter Seen resting in bed, comfortable, not in distress Reports chest pain has improved today, shortness of breath also improved Denies cough, fevers chills, sputum production, hemoptysis Still has moderate low back pain Denies abdominal pain, pain around the ileostomy site, changes with ileostomy site output No bleeding No other symptoms Review of Systems Review of Systems: All systems reviewed & are unremarkable except as noted in HPI & below Physical Exam Physical Exam: General- oriented x 3, not in distress, speaks in sentences with no effort or accessory muscle use Eyes- anicteric Neck- no JVD Lungs- clear breath sounds bilaterally, no wheezing, crackles Heart- normal rate, regular rhythm; no murmurs Abdomen- normal bowel sounds, nondistended, soft, nontender Ostomy site: Positive brown formed stools Positive diffuse erythematous rash, with dryness surrounding the ostomy site No discharge or bleeding Extremities- no pretibial edema, no calf tenderness Neuro- alert, oriented x 3; no gross focal neurologic deficits Skin- warm & dry Results & Data Vital Signs (Past 12 Hours) Vital Signs Temp Pulse Pulse Resp BP Pulse Ox 09/29/18 16:00 71 09/29/18 15:04 36.8 C 78 18 90/54 L 96 09/29/18 11:30 36.7 C 97 H 18 111/70 92 09/29/18 08:00 71 Laboratory Results Laboratory Results - last 24 hr 09/28/18 09/29/18 09/29/18 23:10 07:54 07:54 WBC RBC Hgb Hct MCV MCH MCHC RDW Std Deviation RDW Coeff of Kaylan Plt Count MPV Immature Gran % (Auto) Neut % (Auto) Lymph % (Auto) [place] % (Auto) Eos % (Auto) Baso % (Auto) Immature Gran # (Auto) Neut # (Auto) Lymph # (Auto) [place] # (Auto) Eos # (Auto) Baso # (Auto) APTT 54.8 H* 50.5 H* PTT Ratio 2.0 1.9 Sodium Potassium Chloride Carbon Dioxide Anion Gap BUN Creatinine 0.46 L Est Cr Clr Drug Dosing 102.9 Est GFR ( Amer) 144.2 Est GFR (Non-Af Amer) 124.4 BUN/Creatinine Ratio Glucose Calcium 09/29/18 09/29/18 16:10 16:10 WBC 3.78 L RBC 3.84 L Hgb 10.9 L Hct 34.2 L MCV 89.1 MCH 28.4 MCHC 31.9 L RDW Std Deviation 51.7 H RDW Coeff of Kaylan 15.8 H Plt Count 169 MPV 9.4 Immature Gran % (Auto) 0.0 Neut % (Auto) 69.5 Lymph % (Auto) 14.6 [place] % (Auto) 12.2 Eos % (Auto) 3.2 Baso % (Auto) 0.5 Immature Gran # (Auto) 0.00 Neut # (Auto) 2.63 Lymph # (Auto) 0.55 L [place] # (Auto) 0.46 Eos # (Auto) 0.12 Baso # (Auto) 0.02 APTT PTT Ratio Sodium 138 Potassium 3.5 Chloride 103 Carbon Dioxide 32 Anion Gap 3.0 BUN 8 D Creatinine 0.58 L Est Cr Clr Drug Dosing 81.6 Est GFR ( Amer) 133.6 Est GFR (Non-Af Amer) 115.3 BUN/Creatinine Ratio 13.0 Glucose 92 Calcium 8.3 L
[2018-09-29] MEDS ORDERED: WARFARIN SOD 3 MG TAB PO SCH (20:00)
[2018-09-29] MEDS: ENOXAPARIN INJ 40 MG/0.4 ML SYR SQ SCH (20:53)
[2018-09-29] MEDS: QUETIAPINE FUMARATE 25 MG TABLET PO SCH (20:58)
[2018-09-29] MEDS: GABAPENTIN 300 MG CAP PO SCH (20:58)
[2018-09-29] MEDS: QUETIAPINE FUMARATE 200 MG TAB PO SCH (20:58)
[2018-09-29] MEDS: PRAZOSIN HCL 1 MG CAP PO SCH (20:59)
[2018-09-29] MEDS: PANTOprazole 40 MG TAB PO SCH (20:59)
[2018-09-29] MEDS: CLOTRIMAZOLE/BETAMETHASONE CR 15 GM TUBE EXT SCH (21:23)
[2018-09-30] MEDS: OXYCODONE HCL IR 5 MG TAB (IMMEDIATE RELEASE) PO PRN ×4 (03:33→22:09)
[2018-09-30 07:53] LABS: Hematocrit (blood only) 32.6 % (37-47); Hemoglobin 10.5 g/dL (12.0-16.0); Mean Corpuscular Hgb Conc 32.2 g/dL (32-36); Mean Corpuscular Volume 86.7 fL (80-100); Mean Platelet Volume 9.3 fL (7.4-10.4); Platelet Count 192 K/uL (130-400); RDW Coefficient of Variation 15.7 % (11.5-14.5); RDW Standard Deviation 50.4 fL (36.4-46.3); Red Blood Count 3.76 M/uL (4.2-5.4); White Blood Count 3.04 K/uL (4.8-10.8)
[2018-09-30 08:02] LABS: Partial Thromboplastin Ratio 1.1
[2018-09-30] MEDS: BREO ELLIPTA - ORDER AWAITING ACTION SCH ×3 (08:07→23:59)
[2018-09-30 08:26] LABS: Est GFR (African American) 144.2; Est GFR (Non-African American) 124.4
[2018-09-30] MEDS: IPRATROPIUM BROMIDE/ALBUTEROL respimat INH INH SCH ×4 (08:51→20:28)
[2018-09-30] MEDS: MESALAMINE 400 MG CAPDR PO SCH ×3 (08:52→20:28)
[2018-09-30] MEDS: CLOTRIMAZOLE/BETAMETHASONE CR 15 GM TUBE EXT SCH ×2 (08:52→20:29)
[2018-09-30] MEDS: ENOXAPARIN INJ 40 MG/0.4 ML SYR SQ SCH ×2 (08:53→20:28)
[2018-09-30] MEDS: AMOXICILLIN/CLAVULANATE 875 MG TAB PO SCH ×2 (08:53→17:38)
[2018-09-30] MEDS: NICOTINE 14 MG/24 HR PATCH TD SCH (08:54)
[2018-09-30] MEDS: ATENOLOL 25 MG TABLET PO SCH (09:49)
[2018-09-30] MEDS: SERTRALINE HCL 50 MG TABLET PO SCH (11:43)
[2018-09-30] MEDS: SODIUM CHLORIDE 0.9% 1000ML 1,000 ML IV SCH (11:44)
--- NOTE | 2018-09-30 15:45 | Hospitalist Progress Note ---
Date of Service September 30, 2018 Assessment & Plan (1) Chest pain: Possible Acute Pulmonary Embolus, Left Upper Lobe --CTA:No evidence for an aortic dissection. A small linear filling defect seen within a left upper lobe segmental pulmonary artery. This may represent a small nonocclusive pulmonary embolus versus artifact. Recommend follow-up venous Doppler studies to assess for a DVT. There is a new small focal wedge-shaped density within the periphery of the left lower lobe. This could represent mild inflammatory/infectious change or possibly a small pulmonary infarct. Redemonstration of a 5 mm irregular density within the right upper lobe. Follow- up recommended to ensure stability. Small bilateral pleural effusions and mild ascites have developed in the interval. --Venous doppler: No DVT -- D dimer 700 -- remains on 2 L Nasal cannula Chest pain improving daily --Pulmonary consulted --Discussed case with patient, regarding PE and benefits and risks of treatment with anticoagulation Patient agreeable with anticoagulation -- Heparin drip started, transitioned to Lovenox 40 mg subcutaneous twice a day, Coumadin 3 mg p.o. daily started September 30, 2018 Risk factor, recent hospitalization, also patient reports history of DVT with her mother Hypercoagulable work-up not yet sent, will need hypercoagulable work-up as an outpatient Will need at least 3 months of anticoagulation for possible provoked DVT Possible Left Lower Lobe Pneumonia vs. Possible pulmonary infarct --Pulmonary consulted --Does not recommend antibiotics for pneumonia No signs and symptoms of pneumonia Crohn's disease Fistulizing ileocolonic Crohn's disease S/P right hemicolectomy in 2008 then subsequent colectomy with Ileostomy in 2013 Interval progression of rectovaginal fistula, findings of phlegmon noted on rec ent CT abdomen Continue Augmentin to complete 7 days per GI recommendations during recent admission for possible fluid collection/inflammation in the distal ileum Currently denies any abdominal pain Continue PPI, Mesalamine Planned to be started on Remicade as outpatient Wound care service consulted, likely has cutaneous candidiasis, will order Lotrisone cream twice daily H/O Severe COPD On 2 liters of Oxygen PRN at home No signs of Exacerbation Continue home inhalers Nebs PRN Bipolar disorder Continue home meds Tobacco use 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 Nicotine patch Disposition PT OT ordered Lives at home Will need to follow-up with primary care physician Will need to establish with Coumadin clinic Subjective Follow-up for acute pulmonary embolism, chest pain Seen with TALYOR Heard at the bedside throughout whole encounter Patient seen resting in bed, comfortable, having breakfast Past permission to evaluate her and she agreed States she continues to feel improved today Chest pain continues to improve, now described as mild denies shortness of breath, on 2 L of nasal cannula Denies fever or chills, sputum, phlegm, hemoptysis Denies bleeding No other symptoms Review of Systems Review of Systems: All systems reviewed & are unremarkable except as noted in HPI & below Physical Exam Physical Exam: General- oriented x 3, not in distress, speaks in sentences with no effort or accessory muscle use Eyes- anicteric Neck- no JVD Lungs- clear breath sounds, no crackles no wheezing bilaterally Heart- normal rate, regular rhythm; no murmurs Abdomen- normal bowel sounds, nondistended, soft, nontender Ileostomy site-with surrounding erythema and dryness in all quadrants of the abdomen, to be improved compared to yesterday Ileostomy bag with brown soft stools Extremities- no pretibial edema, no calf tenderness Neuro- alert, oriented x 3; no gross focal neurologic deficits Skin- warm & dry Results & Data Vital Signs (Past 12 Hours) Vital Signs Temp Pulse Pulse Resp BP BP Pulse Ox 09/30/18 14:50 36.7 C 74 18 106/64 95 09/30/18 11:50 36.7 C 76 18 114/68 92 09/30/18 07:23 36.4 C L 69 20 93/58 L 93 09/30/18 07:11 61 09/30/18 05:07 36.8 C 63 20 95/58 L 96
[2018-09-30] MEDS: WARFARIN SOD 3 MG TAB PO SCH (15:52)
[2018-09-30] MEDS ORDERED: CYCLOBENZAPRINE HCL 5 MG TAB PO PRN (17:51)
--- NOTE | 2018-09-30 18:27 | CT Scan Report ---
ABDOMEN AND PELVIS CT WITHOUT CONTRAST CT DOSE: 258.22 mGy.cm HISTORY: Acute low back pain back pain, r/o retroperitoneal hematoma TECHNIQUE: Multiaxial CT images of the abdomen and pelvis were performed without contrast. A dose lo wering technique was utilized adhering to the principles of ALARA. COMPARISON STUDY: CT abdomen and pelvis 09/24/2018 FINDINGS: Limited study without the use of IV contrast. There are new small bilateral pleural effusions. Emphys juan carlos with subsegmental dependent bibasilar consolidation suggestive of atelectasis. Mild bibasilar bro nchial wall thickening. No pneumatosis or pneumoperitoneum identified. Imaged inferior cardiac chambe rs appear unremarkable. Anasarca with trace abdominal pelvic ascites is also new from comparison. Ivis luation of the solid abdominal organs without the use of IV contrast. Within the limitations of the s tudy, the liver, spleen, contracted gallbladder, pancreas and adrenal glands appear unremarkable. Kid neys and ureters are within normal limits. Moderate distention of the urinary bladder. Unenhanced leilani adelina is unremarkable with previously noted lesions of the uterine fundus not identified on this noncon trast enhanced study. No adnexal mass lesions identified. Moderate gastric distention. No bowel obstruction. Rectovaginal fistula redemonstrated. A catheter de vice is again noted within the distribution of the rectovaginal fistula. Subtotal colectomy with righ t lower quadrant ileostomy. Wall thickening of the ileum extending to the ileostomy site redemonstrat ed. No drainable fluid collection. No retroperitoneal hematoma identified. Bones appear to be intact. IMPRESSION: 1. Fluid overload manifested by small bilateral pleural effusions with anasarca and trace abdominopel andra ascites, new from 09/24/2018. 2. Limited exam without the use of contrast. Subtotal colectomy with right lower quadrant ileostomy. Wall thickening of the distal ileum extending to the ileostomy redemonstrated compatible with acute a ctive inflammation. 3. No drainable fluid collection. 4. Rectovaginal fistula redemonstrated. 5. No retroperitoneal hematoma. 6. Emphysema. 7. Additional findings as above. Electronically signed by: Slick Diaz M.D. 09/30/2018 6:26 PM
[2018-09-30] MEDS: LIDOCAINE 5% 1 PATCH TD SCH (19:41)
[2018-09-30] MEDS: QUETIAPINE FUMARATE 200 MG TAB PO SCH (20:26)
[2018-09-30] MEDS: PRAZOSIN HCL 1 MG CAP PO SCH (20:27)
[2018-09-30] MEDS: QUETIAPINE FUMARATE 25 MG TABLET PO SCH (20:30)
[2018-09-30] MEDS: GABAPENTIN 300 MG CAP PO SCH (20:30)
[2018-09-30] MEDS: PANTOprazole 40 MG TAB PO SCH (20:30)
[2018-10-01 07:48] LABS: Partial Thromboplastin Ratio 1.1; Partial Thromboplastin Time 29.9 Seconds (21.0-31.0); Prothrombin Time 10.4 Seconds (9.0-12.0)
[2018-10-01] MEDS: NICOTINE 14 MG/24 HR PATCH TD SCH (08:01)
[2018-10-01] MEDS: IPRATROPIUM BROMIDE/ALBUTEROL respimat INH INH SCH ×3 (08:01→15:52)
[2018-10-01] MEDS: CLOTRIMAZOLE/BETAMETHASONE CR 15 GM TUBE EXT SCH (08:01)
[2018-10-01] MEDS: ATENOLOL 25 MG TABLET PO SCH (08:02)
[2018-10-01] MEDS: SERTRALINE HCL 50 MG TABLET PO SCH (08:02)
[2018-10-01] MEDS: ENOXAPARIN INJ 40 MG/0.4 ML SYR SQ SCH (08:02)
[2018-10-01] MEDS: MESALAMINE 400 MG CAPDR PO SCH ×2 (08:03→13:15)
[2018-10-01] MEDS: BREO ELLIPTA - ORDER AWAITING ACTION SCH ×2 (08:04→15:26)
[2018-10-01] MEDS: LIDOCAINE 5% 1 PATCH TD SCH (08:04)
[2018-10-01] MEDS: AMOXICILLIN/CLAVULANATE 875 MG TAB PO SCH ×2 (08:04→15:51)
--- NOTE | 2018-10-01 15:44 | Hospitalist Progress Note ---
Date of Service October 01, 2018 Assessment & Plan (1) Chest pain: Pleuritic Chest pain secondary to Acute Pulmonary Embolus Left Upper Lobe anticoagulated by anticoagulation therapy -This is a patient with chest pain, elevated D-Dimer and CTA findings concerning for acute pulmonary embolism -CTA: No evidence for an aortic dissection. A small linear filling defect seen within a left upper lobe segmental pulmonary artery. This may represent a small nonocclusive pulmonary embolus versus artifact. Recommend follow-up venous Doppler studies to assess for a DVT. There is a new small focal wedge-shaped density within the periphery of the left lower lobe. This could represent mild inflammatory/infectious change or possibly a small pulmonary infarct. Redemonstration of a 5 mm irregular density within the right upper lobe. Follow- up recommended to ensure stability. Small bilateral pleural effusions and mild ascites have developed in the interval. -While there was no evidence of Deep Vein thrombosis and pulmonary consultation service could not say whether patient has definitively a pulmonary embolic event, the plans of the pulmonary service and initial hospitalist were to have patient treated with anticoagulation therapy -Heparin drip started, transitioned to Lovenox 40 mg subcutaneous twice a day, Coumadin 3 mg p.o. daily started September 30, 2018 -Patient should take coumadin (warfarin) 3mg daily until INR is between 2 to 3 Patient should take Lovenox subcutaneous injections 40 mg twice a day (8 injections prescribed) while on coumadin until the INR is between 2 to 3 Close follow up appointments with clinic doctors for repeat INR labs and CBC labs while on blood thinner medication; will need hypercoagulable work-up as an outpatient Will need at least 3 months of anticoagulation for thromboembolism 10/03/2018 11:00 AM Provider Frances Ernst MD Department Internal Medicine [facility] 10/08/2018 12:50 PM Provider Kathy Stoddard DO Department Internal Medicine [facility] RUL pulmonary nodule - needs [address] as she is a smoker Possible Left Lower Lobe Pneumonia ruled out -Pulmonary consulted and did not consider the infiltrates to be a pneumonia 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 -Nicotine patch given in the hospital -Nicotine patch prescribed History of Severe Chronic obstructive pulmonary disease (COPD) -On 2 liters of Oxygen PRN at home -No signs of Exacerbation -Continue home inhalers Crohn's disease Fistulizing ileocolonic Crohn's disease S/P right hemicolectomy in 2008 then subsequent colectomy with Ileostomy in 2014 Interval progression of rectovaginal fistula, findings of phlegmon noted on recent CT abdomen -Patient should take Augmentin for 4 more days to complete the 7 day total course as per gastroenterology recommendations during recent admission for possible fluid collection/inflammation in the distal ileum Gastroenterology appointments 10/07/2018 11:30 AM Provider AMARILSI Coto Department Gastroenterology, [facility] -apply clotrimazole-betamethasone to area of skin irritation twice a day (avoid in the eyes or mouth) for cutaneous candidiasis -Continue PPI, Mesalamine Bipolar disorder Continue home meds Diagnosis Pleuritic chest pain, Acute Pulmonary Embolus Left Upper Lobe, anticoagulated by anticoagulation therapy, Crohn's disease (Fistulizing ileocolonic Crohn's disease), Chronic obstruction pulmonary disease, Tobacco Use disorder Subjective Patient is awake and alert. breathing on nasal cannula oxygen at baseline. no acute chest pain. no abdominal pain. no vomiting. no dizziness. no headache. Physical Exam Constitutional: WD/WN, vitals as above Eyes: PERRL, conjunctivae normal, anicteric sclerae EOM intact bilaterally ENMT: external ear and nose normal, oropharynx normal Neck: trachea midline, no thyromegaly Respiratory: normal respiratory effort, lungs clear to auscultation Cardiovascular: RRR, no murmur, no edema Gastrointestinal (Abdomen): normal bowel sounds, soft, nontender, no hepatosplenomegaly Musculoskeletal: Head/Neck/Chest: normocephalic and head atraumatic Neurologic: PERRL, EOMI, accommodation nl, no face palsy, no dysarthria Psychiatric: A+Ox3, euthymic affect Results & Data Vital Signs (Past 12 Hours) Vital Signs Temp Pulse Pulse Resp BP BP Pulse Ox 10/01/18 15:08 36.5 C 68 18 114/63 94 10/01/18 13:42 36.8 C 68 20 105/65 102/67 93 10/01/18 12:00 36.8 C 68 20 105/65 93 10/01/18 07:29 65 10/01/18 06:48 36.9 C 74 18 102/67 95 10/01/18 03:51 36.6 C 71 16 101/62 94
[2018-10-01] MEDS: WARFARIN SOD 3 MG TAB PO SCH (15:51)
--- NOTE | 2018-10-01 15:58 | Discharge Summary ---
Date of Service October 01, 2018 Admission HPI Per Admitting Provider Patient is a 38-year-old female with history of fistulizing ileocolonic Crohn's disease S/P right hemicolectomy in 2008 then subsequent colectomy with Ileostomy in 2013 , severe COPD, bipolar disorder, tobacco use disorder, migraines, hypertension and other problems presents with history of worsening chest pain associated with shortness of breath, dizziness and nausea. Patient was discharged yesterday from [facility] after being evaluated for precordial chest pain and abdominal pain. Patient states that chest pain is sharp in quality, all across the chest, associated with shortness of breath, increases with breathing and exertion. Also reports cough with no expectoration's since 3 days duration. She noticed to have frontal headache associated with nausea this morning but denies any vomiting. States having dizziness today. Patient complains of lower back pain since yesterday. Denies any history of hemoptysis, fever, fall, head trauma, LOC, change in vision, abdominal pain, blood in stools, diarrhea, dysuria, hematuria. Patient was advised to continue Augmentin at the time of prior discharge for a total of 7 days to treat a developing phlegmon noted on prior abdominal CT scan. She was also advised to follow-up with gastroenterology as outpatient to be initiated on Remicade. Patient states that she did not continue taking Augmentin and has not seen hand button splitter yet. CTA showed no evidence of aortic dissection, but noted to have a small linear filling defect within the left upper lobe segmental pulmonary artery which is suggestive of possible non-occlusive pulmonary embolus versus artifact. Also noted findings suggestive of left lower lobe pneumonia, possibly a small pulmonary infarct. Small bilateral pleural effusions with mild ascites was noted as well. Admission Exam Per Admitting Provider Physical Exam: Vitals signs as noted above General Appearance:Thin, Frail, ill appearing, no apparent distress Head: normocephalic, Atraumatic Eyes: normal inspection, EOMI Neck: supple, Trachea midline Respiratory/Chest: Decreased breath sounds, CTA Cardiovascular: S1, S2, No murmur Abdomen/GI:Soft, Non tender, Bowel sounds present, +Ileostomy Extremities/Musculoskelatal:normal inspection, no edema Neurologic/Psych:AAOX3, grossly no focal neurological deficits Skin: normal color, warm Principal Diagnosis Pleuritic chest pain, Acute Pulmonary Embolus Left Upper Lobe, anticoagulated by anticoagulation therapy, Crohn's disease (Fistulizing ileocolonic Crohn's disease), Chronic obstruction pulmonary disease, Tobacco Use disorder Discharge Exam Constitutional WD/WN, vitals as above Eyes PERRL, conjunctivae normal, anicteric sclerae EOM intact bilaterally ENMT external ear and nose normal, oropharynx normal Neck trachea midline, no thyromegaly Respiratory normal respiratory effort, lungs clear to auscultation Cardiovascular RRR, no murmur, no edema Gastrointestinal (Abdomen) normal bowel sounds, soft, nontender, no hepatosplenomegaly Musculoskeletal Head/Neck/Chest: normocephalic and head atraumatic Neurologic PERRL, EOMI, accommodation nl, no face palsy, no dysarthria Psychiatric A+Ox3, euthymic affect Discharge Data Allergies Allergy/AdvReac Type Severity Reaction Status Date / Time codeine Allergy Severe SOB, Verified 09/27/18 13:10 NAUSEA -- MORPHINE OK, TAKES LORTAB AT HOME metronidazole Allergy Severe chest pain Verified 09/27/18 13:10 Cipro Allergy Unknown "I GET Verified 04/20/15 21:21 SICK AND CAN'T BREATHE RIGHT." ciprofloxacin Allergy Unknown "I GET Verified 09/27/18 13:10 SICK AND CAN'T BREATHE RIGHT." latex Allergy Unknown RASH Verified 09/27/18 13:10 Penicillins Allergy Unknown CHEST Unverified 09/27/18 13:10 TIGHTNESS prednisone AdvReac Intermediate Nausea Unverified 09/27/18 13:10 aspirin AdvReac Mild GI DISTRESS Verified 09/27/18 13:10 IRON INFUSIONS Allergy Unknown Chest Uncoded 09/27/18 13:10 tightness and SOB. Consultations 09/27/18 15:44 ED Decision to Admit Stat 09/27/18 18:30 Consult Case Management - Discharge Planning Routine 09/28/18 09:24 Consult Pulmonology Routine Ordered Studies 09/27/18 14:03 CT angio chest dissec wo/w con Stat 09/27/18 15:42 US venous doppler LE BI Stat 09/30/18 17:51 CT abd pelvis wo con Stat Hospital Course (1) Chest pain: Pleuritic Chest pain secondary to Acute Pulmonary Embolus Left Upper Lobe anticoagulated by anticoagulation therapy -This is a patient with chest pain, elevated D-Dimer and CTA findings concerning for acute pulmonary embolism -CTA: No evidence for an aortic dissection. A small linear filling defect seen within a left upper lobe segmental pulmonary artery. This may represent a small nonocclusive pulmonary embolus versus artifact. Recommend follow-up venous Doppler studies to assess for a DVT. There is a new small focal wedge-shaped density within the periphery of the left lower lobe. This could represent mild inflammatory/infectious change or possibly a small pulmonary infarct. Redemonstration of a 5 mm irregular density within the right upper lobe. Follow- up recommended to ensure stability. Small bilateral pleural effusions and mild ascites have developed in the interval. -While there was no evidence of Deep Vein thrombosis and pulmonary consultation service could not say whether patient has definitively a pulmonary embolic event, the plans of the pulmonary service and initial hospitalist were to have patient treated with anticoagulation therapy -Heparin drip started, transitioned to Lovenox 40 mg subcutaneous twice a day, Coumadin 3 mg p.o. daily started September 30, 2018 -Patient should take coumadin (warfarin) 3mg daily until INR is between 2 to 3 Patient should take Lovenox subcutaneous injections 40 mg twice a day (8 injections prescribed) while on coumadin until the INR is between 2 to 3 Close follow up appointments with clinic doctors for repeat INR labs and CBC labs while on blood thinner medication; will need hypercoagulable work-up as an outpatient Will need at least 3 months of anticoagulation for thromboembolism 10/03/2018 11:00 AM Provider Frances Ernst MD Department Internal Medicine [facility] 10/08/2018 12:50 PM Provider Kathy Stoddard DO Department Internal Medicine [facility] RUL pulmonary nodule - needs [address] as she is a smoker Possible Left Lower Lobe Pneumonia ruled out -Pulmonary consulted and did not consider the infiltrates to be a pneumonia Tobacco use disorder -Crown Buffer to quit smoking -Nicotine patch given in the hospital -Nicotine patch prescribed History of Severe Chronic obstructive pulmonary disease (COPD) -On 2 liters of Oxygen PRN at home -No signs of Exacerbation -Continue home inhalers Crohn's disease Fistulizing ileocolonic Crohn's disease S/P right hemicolectomy in 2008 then subsequent colectomy with Ileostomy in 2013 Interval progression of rectovaginal fistula, findings of phlegmon noted on recent CT abdomen -Patient should take Augmentin for 4 more days to complete the 7 day total course as per gastroenterology recommendations during recent admission for possible fluid collection/inflammation in the distal ileum Gastroenterology appointments 10/07/2018 11:30 AM Provider AMARILIS Coto Department Gastroenterology, [facility] -apply clotrimazole-betamethasone to area of skin irritation twice a day (avoid in the eyes or mouth) for cutaneous candidiasis -Continue PPI, Mesalamine Bipolar disorder Continue home meds Diagnosis Pleuritic chest pain, Acute Pulmonary Embolus Left Upper Lobe, anticoagulated by anticoagulation therapy, Crohn's disease (Fistulizing ileocolonic Crohn's disease), Chronic obstruction pulmonary disease, Tobacco Use disorder Total Time Total Time Spent Total Time Spent (In Minutes): 40 minutes Total Time Includes: Examination of the Patient, Discharge Planning, Medication Reconciliation and Communication With Other Providers Discharge Plan Discharge Items Patient Disposition: Home - Self-Care Reason For Visit: PNEUMONIA Discharge Diagnosis: Pleuritic chest pain, Acute Pulmonary Embolus, Left Upper Lobe, anticaogulated by anticoagulation therapy, Crohn's disease (Fistulizing ileocolonic Crohn's disease), Chronic obstruction pulmonary disease, Tobacco Use Condition: Good Discharge Goals: Improve disease control Activity: Resume your previous activity Non-emergency contact: Primary Care Provider Call non-emergency contact if: you have any medication questions Follow-up/Referrals: Kathy Stoddard DO [Primary Care Provider] - Diet: Regular Addtl Provider Instructions: Patient should take coumadin (warfarin) 3mg daily until INR is between 2 to 3 Patient should take Lovenox subcutaneous injections 40 mg twice a day (8 injections prescribed) while on coumadin until the INR is between 2 to 3 Close follow up appointments with clinic doctors for repeat INR labs and CBC labs while on blood thinner medication; will need hypercoagulable work-up as an outpatient Will need at least 3 months of anticoagulation for thromboembolism 10/03/2018 11:00 AM Provider Frances Ernst MD Department Internal Medicine [facility] 10/08/2018 12:50 PM Provider Kathy Stoddard DO Department Internal Medicine [facility] RUL pulmonary nodule - needs [address] as she is a smoker Patient should avoid smoking. Nicotine patch prescribed Patient should take Augmentin for 4 more days to complete the 7 day total course as per gastroenterology recommendations during recent admission for possible fluid collection/inflammation in the distal ileum Gastroenterology appointments 10/07/2018 11:30 AM Provider AMARILIS Coto Department Gastroenterology, [facility] apply clotrimazole-betamethasone to area of skin irritation twice a day (avoid i n the eyes or mouth) Prescriptions sent electronically to [address] [place], [place] [address] Prescriptions: New nicotine 7 mg/24 hr Patch 24 Hour 14 mg transdermal QAM 30 Days Qty: 30 RF: 0 warfarin [Coumadin] 3 mg Tablet 3 mg PO DAILY@1600 30 Days Qty: 30 RF: 0 enoxaparin 40 mg/0.4 mL Syringe 40 mg subcut DAILY@0800,2000 4 Days Qty: 8 RF: 0 amoxicillin-pot clavulanate 875-125 mg Tablet 1 tab PO BIDM 4 Days Qty: 8 RF: 0 clotrimazole-betamethasone 1-0.05 % Cream 1 applic EXT BID 10 Days Qty: 1 RF: 0 Continued quetiapine 25 mg tablet 25 mg PO HS RF: 0 ascorbic acid (vitamin C) [Vitamin C] 1,000 mg Tablet PO QAM RF: 0 vitamin A 8,000 unit Capsule PO QAM RF: 0 quetiapine 200 mg tablet 200 mg PO HS RF: 0 sumatriptan succinate 50 mg tablet 50 mg PO UD PRN (Reason: Migraine Headache) RF: 0 cyanocobalamin (vitamin B-12) [Vitamin B-12] 500 mcg Tablet 500 mcg PO QAM RF: 0 gabapentin 300 mg capsule 300 mg PO HS RF: 0 sertraline [Zoloft] 25 mg tablet 25 mg PO QAM RF: 0 vitamin B complex Tablet 1 tab PO QAM RF: 0 albuterol sulfate [Ventolin HFA] 90 mcg/actuation HFA aerosol inhaler 2 puff inhalation Q6H PRN (Reason: Shortness Of Breath Or Wheezing) RF: 0 vitamin E 400 unit Capsule 400 unit PO QAM RF: 0 prazosin 2 mg capsule 2 mg PO HS RF: 0 hydroxyzine pamoate [Vistaril] 25 mg Capsule 25 mg PO TID PRN (Reason: Anxiety) RF: 0 cholecalciferol (vitamin D3) [Vitamin D3] 400 unit Capsule 400 unit PO QAM RF: 0 Dexilant 30 mg Capsule,Biphase Delayed Releas 30 mg PO PM RF: 0 calcium-vitamin D3-vitamin K [Citracal Chew] 500 mg-1,000 unit-40 mcg Tablet,Chewable 1 tab PO QAM RF: 0 Flintstones Gummies Tablet,Chewable 1 tab PO QAM RF: 0 Breo Ellipta 100-25 mcg/dose blister with device 1 inh inhalation DAILY RF: 0 mesalamine [Delzicol] 400 mg capsule (with del rel tablets) 1,600 mg PO TID RF: 0 atenolol 25 mg tablet 12.5 mg PO QAM Qty: 0 RF: 0 Stand-Alone Forms: Call Back Authorization, [facility] Discharge Orders: Discharge Order (Routine); Ordered 10/01/18 Ordered By: Gary Caputo Admission Data Admit Date/Time: 09/28/18 16:22 Attending Provider: Gary Caputo Admit Provider: Tom Kumar Primary Care Provider: Kathy Stoddard Other Providers: Tom Kumar ; Rodger Wooten Service: Telemetry Medical Other Interventions: Discharge Summary Assessment (RN) Last Done: 10/01/18 13:42
== END 2018-10-01 18:00 | disposition home health service (06) | DRG 175 ==
LOC: 2W 12:31 → ED 12:31 → 2W 17:54 → SUATTDRO 09-28 16:22

== ENCOUNTER 2018-11-15 14:35 | Inpatient (IN) ==
[2018-11-15] MEDS ORDERED: SODIUM CHLORIDE 0.9% 1000ML 1,000 ML IV ONE (14:53)
[2018-11-15] MEDS ORDERED: ACETAMINOPHEN 325 MG TAB PO STA (15:07)
[2018-11-15] MEDS ORDERED: ONDANSETRON INJ 2 MG/ML 2 ML VIAL IV STA (15:08)
[2018-11-15] MEDS ORDERED: HYDROmorphone INJ 0.5 MG/0.5 ML SYR IV PRN (15:08)
[2018-11-15 15:52] LABS: Basophils # (auto) 0.06 K/uL (0-0.2); Basophils % (auto) 0.4 %; Eosinophils # (auto) 0.05 K/uL (0-0.5); Eosinophils % (auto) 0.3 %; Immature Granulocytes # (auto) 0.04 K/uL (0.00-0.02); Immature Granulocytes % (auto) 0.2 %; Lymphocytes # (auto) 0.67 K/uL (1.2-3.4); Lymphocytes % (auto) 4.1 %; Mean Corpuscular Hemoglobin 28.5 pg (25-34); Mean Corpuscular Hgb Conc 34.1 g/dL (32-36); Mean Corpuscular Volume 83.3 fL (80-100); Monocytes # (auto) 1.15 K/uL (0.11-0.59); Neutrophils # (auto) 14.38 K/uL (1.4-6.5); Platelet Count 486 K/uL (130-400); RDW Coefficient of Variation 13.8 % (11.5-14.5); RDW Standard Deviation 41.4 fL (36.4-46.3); Red Blood Count 4.92 M/uL (4.2-5.4); White Blood Count 16.35 K/uL (4.8-10.8)
[2018-11-15 16:09] LABS: Albumin Level 3.3 gm/dl (3.4-5.0); BUN Creatinine Ratio 14.1 (10-20); Calcium 8.9 mg/dl (8.5-10.1); Creatinine Clr Calc Pharmacy 64.5 ml/min; Est GFR (Non-African American) 112.2; Potassium 3.3 mmol/L (3.5-5.1); Pregnancy Test, Serum Negative (Negative)
[2018-11-15 16:12] LABS: Albumin Globulin Ratio 0.7 (0.9-2); Bilirubin,Total 0.4 mg/dl (0.2-1); Globulin 4.8 gm/dl (2.5-4.0); Total Protein 8.1 gm/dl (6.4-8.2)
[2018-11-15] MEDS ORDERED: IOVERSOL 100ml IV PRN (18:10)
[2018-11-15 18:14] LABS: Appearance Urine Clear (Clear); Bacteria Urine Automated Negative (Negative); Bilirubin Urine Negative (Negative); Blood Urine Negative (Negative); Color Urine Yellow; Epithelial Cell Urine Auto >30 /lpf (0-5); Glucose Urine UA Negative (Negative); Ketones Urine Negative (Negative); Leukocyte Esterase Urine 1+ (Negative); Nitrite Urine Negative (Negative); Protein Urine Trace (Negative); RBC Urine Automated 0-4 /hpf (0-4); Specific Gravity Urine 1.014 (1.000-1.030); Urobilinogen Urine Negative (Negative)
--- NOTE | 2018-11-15 18:47 | CT Scan Report ---
ABDOMEN AND PELVIS CT WITH IV AND ORAL CONTRAST CT DOSE: 253.75 mGy.cm HISTORY: Acute right lower quadrant abdominal pain with fever and history of Crohn's disease RLQ purvi n, ileostomy, chron's, fever. TECHNIQUE: Multiaxial CT images of the abdomen and pelvis were performed following the use of intrave nous and oral contrast. A dose lowering technique was utilized adhering to the principles of ALARA. COMPARISON STUDY: CT abdomen and pelvis 11/02/2018 FINDINGS: Hyperinflation with emphysema and mild right basilar bronchial wall thickening suggestive of bronchit is. There is no pneumatosis or pneumoperitoneum. Imaged inferior cardiac chambers are unremarkable. T he liver again appears enlarged in size. Patency of the hepatic and portal veins. Spleen measures the upper limits of normal. Pancreas, gallbladder and adrenal glands appear unremarkable. 4 mm cyst of t he inferior pole left kidney. No renal or ureteral calculi or obstructive uropathy. Urinary bladder, uterus and adnexa appear unremarkable. Possible soft tissue defect within the region of the vagina ap pears unchanged. Postoperative changes from subtotal colectomy with right mid abdominal colostomy red emonstrated. No small bowel obstruction. Temperature probe within the rectum redemonstrated. Adenopat hy of the abdominal right lower quadrant measures up to 1.3 x 2.2 cm. There is a stellate-shaped fist stephany within the right midabdomen redemonstrated with surrounding mucosal hyperemia. Is appears to conn ect an adjacent loop of small bowel with the colostomy. Peripherally enhancing sinus tract extends in to the abdominal wall right rectus sheath musculature with air and air, fluid and contrast noted with in this distribution on image 192 series 3. Asymmetric enlargement with inflammation of the right rec tus sheath. Inflammatory stranding with mild free fluid is noted surrounding the sinus tracts. Mild m ucosal hyperemia of the colostomy. The corrected redemonstrated. Bones appear to be intact. IMPRESSION: 1. Postoperative changes from prior subtotal colectomy with right mid abdominal colostomy. Hyperenhan cement of the colostomy redemonstrated suggestive of active inflammation. 2. Peripheral enhancement of an irregular multidirectional fistula with adjacent sinus tracts noted a djacent to the colostomy with extension to an adjacent loop of small bowel. Additionally, there is ne w extension and involvement of sinus tracts into the right rectus sheath which demonstrates associate d myositis and phlegmonous change. No drainable fluid collection. 3. Right lower quadrant adenopathy, likely on a reactive basis. 4. Reactive mesenteric stranding with trace free fluid of the abdominal right lower quadrant. 5. No bowel obstruction. 6. Additional findings as above. Electronically signed by: Slick Diaz M.D. 11/15/2018 6:45 PM
[2018-11-15] MEDS: ERTAPENEM SODIUM 1,000 MG in SODIUM CHLORIDE 0.9% 50 ML IV SCH (19:15)
--- NOTE | 2018-11-15 21:28 | Emergency Department Note ---
Entered by Mone Peterson acting as a scribe for Tee Bhakta MD ED Provider Note CHIEF COMPLAINT: Abdominal Pain HISTORY OF PRESENT ILLNESS: The patient is a 38 year old female who presents to the Emergency Room with complaints of worsening abdominal pain for the past 1 week. She rates her pain as a 10/10 in severity. The pain occasionally radiates into her back. Pain medication taken at home has provided no relief. She has a history of Crohn's disease and has undergone an ileostomy. She denies any blood in her stool. There is redness around the ileostomy site that the patient states is not new, and she has been using topical creams for. She follows with [facility] and states she will be restarting Remicade next week. She does admit to recent fevers, chills and a cough. Pt denies LOC, headache, diaphoresis, visual changes, neck pain, chest pain, breathing difficulties, nausea, vomiting, back pain, melena, hematochezia, urinary symptoms, numbness, weakness, lymphadenopathy, rash, or other complaints. REVIEW OF SYSTEMS: See HPI for pertinent positives and negatives. A total of ten systems were reviewed and were otherwise negative. PMHx/PSHx: Crohn's disease, COPD. SOCIAL HISTORY: Patient lives at home. PHYSICAL EXAM: GENERAL: Awake, alert, uncomfortable-appearing, in no distress HENT: Normocephalic, atraumatic. Oropharynx unremarkable. EYES: PERRL. Normal conjunctiva. Sclera non-icteric. NECK: Inspection normal. Non-tender. Supple. No nuchal rigidity. FROM. No mass es. RESPIRATORY: Clear to auscultation. No wheezes. No rales. Normal respiratory effort. CARDIAC: Borderline tachycardic heart rate. Normal rhythm. No murmurs. No rubs. Extremities warm and well perfused. Pulses equal. No JVD. GI: Soft, non-distended. Right lower abdominal tenderness to palpation. Surrounding irritation of right lower ileostomy site. No rebound or guarding. No masses. RECTAL: Deferred. MUSCULOSKELETAL: Atraumatic. Chest examination reveals no tenderness. There is no CVA tenderness to palpation. No joint edema. LOWER EXTREMITIES: Calves are equal size bilaterally and non-tender. No edema. No discoloration. NEURO: Normal sensorium. No sensory or motor deficits noted. SKIN: No rash or jaundice noted. EMERGENCY DEPARTMENT COURSE: 1504: Past medical records reviewed. The patient was evaluated in room C2B, and a complete history and physical examination were performed. 1854: I reevaluated the patient. She is resting comfortably. I discussed my recommendation we consult with Gastroenterology and she is agreeable with the plan. 1902: I [facility] the patients [facility] He recommends IV antibiotics and evaluation by the hospital medicine team. 1904: I discussed the patients case with [facility]. The patient will be further evaluated. MEDICAL DECISION MAKING: C2B Prior records/ancillary studies reviewed. Triage Nursing notes reviewed and agree them. The patient's history was concerning for abdominal pain. Differential diagnosis: Etiologies such as inflammatory bowel disease, appendicitis, diverticulitis, PUD, biliary pathology, UTI, pancreatitis, obstruction, mesenteric ischemia, aortic pathology, infections, renal colic, as well as others were entertained. Physical examination findings: As above. ER treatment provided: IV saline hydration Oral Tylenol IV Zofran 4 mg IV Dilaudid 0.25 mg On reassessment the patient felt better. IV Ertapenem Diagnostics interpreted by me: The labs revealed mild leukocytosis on CBC. Trace hypokalemia noted. Negative LFTs and lipase. Imaging studies: CT imaging was concerning for active inflammatory bowel disease with phlegmonous change in the rectus muscle and fistula formation. Consultation: A consultation was placed with the GI specialist on-call, Dr. Crain. The case was discussed and diagnostics were reviewed. He agreed with the IV medications and antibiotics. Recommended against steroids or immune modulators. Consultation made with the [facility], Dr. Negron. The patient was evaluated in the ER for further treatment. IMPRESSION: Inflammatory bowel disease, myositis, small bowel fistula, leukocytosis, right sided abdominal pain PLAN: Evaluation by Hospitalist The scribe's documentation has been prepared under my direction and personally reviewed by me in its entirety. I confirm that the note above accurately reflects all work, treatment, procedures, and medical decision making performed by me. 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 Beliefs That Will Affect Care: None Current Living Situation: Spouse Feels Safe at Home: Yes Smoking Status: Current every day smoker Tobacco Type: cigarettes ; Cigarettes Per Day: 12 ; Second Hand Exposure: No ; Hx Alcohol Use: No Hx Substance Use: No Results & Data Vital Signs Vital Signs - 24 hr 11/15/18 14:27 11/15/18 14:35 11/15/18 14:53 Temperature 37.8 C H Temperature Source Oral Oral Sepsis Recent Fever Within 48 Hours No Sepsis New/Unexplained Change in Mental Status No Sepsis Action Taken by Nursing No Action Required Pulse Rate 102 H Pulse Rate from SpO2 Sensor Pulse Rhythm Regular Respiratory Rate 18 Respiratory Effort / Characteristics Non-Labored Respiratory Depth Normal Respiratory Pattern Regular Blood Pressure 116/69 Blood Pressure Mean 84 Pulse Oximetry 96 Oxygen Delivery Method Room Air Room Air 11/15/18 15:52 11/15/18 15:55 11/15/18 16:00 Temperature Temperature Source Sepsis Recent Fever Within 48 Hours Sepsis New/Unexplained Change in Mental Status Sepsis Action Taken by Nursing Pulse Rate 100 H 94 H 89 Pulse Rate from SpO2 Sensor 100 H 95 H 89 Pulse Rhythm Respiratory Rate 23 14 23 Respiratory Effort / Characteristics Respiratory Depth Respiratory Pattern Blood Pressure 95/64 L 119/69 Blood Pressure Mean 74 85 Pulse Oximetry 93 90 90 Oxygen Delivery Method 11/15/18 16:30 11/15/18 17:00 11/15/18 17:30 Temperature Temperature Source Sepsis Recent Fever Within 48 Hours Sepsis New/Unexplained Change in Mental Status Sepsis Action Taken by Nursing Pulse Rate 83 74 84 Pulse Rate from SpO2 Sensor 82 73 86 Pulse Rhythm Respiratory Rate 22 16 23 Respiratory Effort / Characteristics Respiratory Depth Respiratory Pattern Blood Pressure 110/65 97/60 L 97/55 L Blood Pressure Mean 80 72 69 Pulse Oximetry 95 93 94 Oxygen Delivery Method 11/15/18 18:00 11/15/18 18:30 11/15/18 19:00 Temperature Temperature Source Sepsis Recent Fever Within 48 Hours Sepsis New/Unexplained Change in Mental Status Sepsis Action Taken by Nursing Pulse Rate 70 67 71 Pulse Rate from SpO2 Sensor 70 69 72 Pulse Rhythm Respiratory Rate 14 20 20 Respiratory Effort / Characteristics Respiratory Depth Respiratory Pattern Blood Pressure 87/55 L 88/52 L 92/60 L Blood Pressure Mean 65 64 70 Pulse Oximetry 96 94 92 Oxygen Delivery Method 11/15/18 19:30 11/15/18 20:00 11/15/18 20:30 Temperature Temperature Source Sepsis Recent Fever Within 48 Hours Sepsis New/Unexplained Change in Mental Status Sepsis Action Taken by Nursing Pulse Rate 65 68 64 Pulse Rate from SpO2 Sensor 65 66 65 Pulse Rhythm Respiratory Rate 18 18 16 Respiratory Effort / Characteristics Respiratory Depth Respiratory Pattern Blood Pressure 91/57 L 87/61 L 83/58 L Blood Pressure Mean 68 69 66 Pulse Oximetry 93 91 93 Oxygen Delivery Method 11/15/18 21:01 Temperature Temperature Source Sepsis Recent Fever Within 48 Hours Sepsis New/Unexplained Change in Mental Status Sepsis Action Taken by Nursing Pulse Rate 70 Pulse Rate from SpO2 Sensor 71 Pulse Rhythm Respiratory Rate 16 Respiratory Effort / Characteristics Respiratory Depth Respiratory Pattern Blood Pressure 96/56 L Blood Pressure Mean 69 Pulse Oximetry 95 Oxygen Delivery Method Home Medications Current Medication List: was personally reviewed by me Laboratory Data Attestation: I reviewed the patient's lab results. Result diagrams: 11/15/18 15:34 11/15/18 15:34 Lab Results 11/15/18 11/15/18 11/15/18 Range/Units 15:34 15:34 15:34 WBC 16.35 H (4.8-10.8) K/uL RBC 4.92 (4.2-5.4) M/uL Hgb 14.0 (12.0-16.0) g/dL Hct 41.0 (37-47) % MCV 83.3 (80-100) fL MCH 28.5 (25-34) pg MCHC 34.1 (32-36) g/dL RDW Std Deviation 41.4 (36.4-46.3) fL RDW Coeff of Kaylan 13.8 (11.5-14.5) % Plt Count 486 H (130-400) K/uL MPV 9.0 (7.4-10.4) fL Immature Gran % (Auto) 0.2 % Neut % (Auto) 88.0 % Lymph % (Auto) 4.1 % Bland % (Auto) 7.0 % Eos % (Auto) 0.3 % Baso % (Auto) 0.4 % Immature Gran # (Auto) 0.04 H (0.00-0.02) K/uL Neut # (Auto) 14.38 H (1.4-6.5) K/uL Lymph # (Auto) 0.67 L (1.2-3.4) K/uL Bland # (Auto) 1.15 H (0.11-0.59) K/uL Eos # (Auto) 0.05 (0-0.5) K/uL Baso # (Auto) 0.06 (0-0.2) K/uL Sodium 135 L (136-145) mmol/L Potassium 3.3 L (3.5-5.1) mmol/L Chloride 101 (98-107) mmol/L Carbon Dioxide 26 (21-32) mmol/L Anion Gap 8.0 (3-11) BUN 9 (7-18) mg/dl Creatinine 0.63 (0.6-1.2) mg/dl Est Cr Clr Drug Dosing 64.5 ml/min Est GFR ( Amer) 130.0 Est GFR (Non-Af Amer) 112.2 BUN/Creatinine Ratio 14.1 (10-20) Glucose 95 (70-99) mg/dl Calcium 8.9 (8.5-10.1) mg/dl Total Bilirubin 0.4 (0.2-1) mg/dl AST 13 L (15-37) U/L ALT 12 (12-78) U/L Alkaline Phosphatase 111 (45-117) U/L Total Protein 8.1 (6.4-8.2) gm/dl Albumin 3.3 L (3.4-5.0) gm/dl Globulin 4.8 H (2.5-4.0) gm/dl Albumin/Globulin Ratio 0.7 L (0.9-2) Lipase 151 (73-393) U/L HCG, Qual Negative (Negative) Urine Color Urine Appearance (Clear) Urine pH (4.5-7.5) Ur Specific [place] (1.000-1.030) Urine Protein (Negative) Urine Glucose (UA) (Negative) Urine Ketones (Negative) Urine Blood (Negative) Urine Nitrite (Negative) Urine Bilirubin (Negative) Urine Urobilinogen (Negative) Ur Leukocyte Esterase (Negative) Urine WBC (Auto) (0-5) /hpf Urine RBC (Auto) (0-4) /hpf U Hyaline Cast (Auto) (0-5) /lpf U Epithel Cells (Auto) (0-5) /lpf Urine Bacteria (Auto) (Negative) 11/15/18 Range/Units 17:45 WBC (4.8-10.8) K/uL RBC (4.2-5.4) M/uL Hgb (12.0-16.0) g/dL Hct (37-47) % MCV (80-100) fL MCH (25-34) pg MCHC (32-36) g/dL RDW Std Deviation (36.4-46.3) fL RDW Coeff of Kaylan (11.5-14.5) % Plt Count (130-400) K/uL MPV (7.4-10.4) fL Immature Gran % (Auto) % Neut % (Auto) % Lymph % (Auto) % Bland % (Auto) % Eos % (Auto) % Baso % (Auto) % Immature Gran # (Auto) (0.00-0.02) K/uL Neut # (Auto) (1.4-6.5) K/uL Lymph # (Auto) (1.2-3.4) K/uL Bland # (Auto) (0.11-0.59) K/uL Eos # (Auto) (0-0.5) K/uL Baso # (Auto) (0-0.2) K/uL Sodium (136-145) mmol/L Potassium (3.5-5.1) mmol/L Chloride (98-107) mmol/L Carbon Dioxide (21-32) mmol/L Anion Gap (3-11) BUN (7-18) mg/dl Creatinine (0.6-1.2) mg/dl Est Cr Clr Drug Dosing ml/min Est GFR ( Amer) Est GFR (Non-Af Amer) BUN/Creatinine Ratio (10-20) Glucose (70-99) mg/dl Calcium (8.5-10.1) mg/dl Total Bilirubin (0.2-1) mg/dl AST (15-37) U/L ALT (12-78) U/L Alkaline Phosphatase (45-117) U/L Total Protein (6.4-8.2) gm/dl Albumin (3.4-5.0) gm/dl Globulin (2.5-4.0) gm/dl Albumin/Globulin Ratio (0.9-2) Lipase (73-393) U/L HCG, Qual (Negative) Urine Color Yellow Urine Appearance Clear (Clear) Urine pH 5.0 (4.5-7.5) Ur Specific [place] 1.014 (1.000-1.030) Urine Protein Trace H (Negative) Urine Glucose (UA) Negative (Negative) Urine Ketones Negative (Negative) Urine Blood Negative (Negative) Urine Nitrite Negative (Negative) Urine Bilirubin Negative (Negative) Urine Urobilinogen Negative (Negative) Ur Leukocyte Esterase 1+ H (Negative) Urine WBC (Auto) 5-10 H (0-5) /hpf Urine RBC (Auto) 0-4 (0-4) /hpf U Hyaline Cast (Auto) 1-5 (0-5) /lpf U Epithel Cells (Auto) >30 H (0-5) /lpf Urine Bacteria (Auto) Negative (Negative) Administered Medications Hydromorphone HCl (Dilaudid) 0.25 mg IV Q15M PRN PRN Reason: Pain Stop: 11/29/18 15:07 Last Admin: 11/15/18 15:50 Dose: 0.25 mg Documented by: [id number] Ertapenem 1,000 mg/ Sodium (Chloride) 60 mls @ 100 mls/hr IV Q24H CHACHA Stop: 11/25/18 18:59 Last Admin: 11/15/18 19:15 Dose: 100 mls/hr Documented by: [id number] Ioversol (Optiray 320 100ml) 94 ml IV ONCE PRN PRN Reason: Interaction Checking Stop: 11/19/18 18:09 Last Admin: 11/15/18 18:11 Dose: 94 ml Documented by: [id number] Discontinued Medications Acetaminophen (Tylenol) 650 mg PO NOW STA Stop: 11/15/18 15:08 Last Admin: 11/15/18 15:50 Dose: 650 mg Documented by: [id number] Sodium Chloride (Nss 1000ml) 1,000 mls @ 999 mls/hr IV .Q1H1M ONE Stop: 11/15/18 15:53 Last Infusion: 11/15/18 17:07 Dose: 0 mls/hr Documented by: [id number] Admin: 11/15/18 15:50 Dose: 999 mls/hr Documented by: [id number] Ondansetron HCl (Zofran) 4 mg IV NOW STA Stop: 11/15/18 15:09 Last Admin: 11/15/18 15:50 Dose: 4 mg Documented by: [id number] Imaging Data Radiologist's Impression: Radiology results as stated below per my review and the radiologist's interpretation: ABDOMEN AND PELVIS CT WITH IV AND ORAL CONTRAST CT DOSE: 253.75 mGy.cm HISTORY: Acute right lower quadrant abdominal pain with fever and history of Crohn's disease RLQ pain, ileostomy, chron's, fever. TECHNIQUE: Multiaxial CT images of the abdomen and pelvis were performed following the use of intravenous and oral contrast. A dose lowering technique was utilized adhering to the principles of ALARA. COMPARISON STUDY: CT abdomen and pelvis 11/02/2018 FINDINGS: Hyperinflation with emphysema and mild right basilar bronchial wall thickening suggestive of bronchitis. There is no pneumatosis or pneumoperitoneum. Imaged inferior cardiac chambers are unremarkable. The liver again appears enlarged in size. Patency of the hepatic and portal veins. Spleen measures the upper limits of normal. Pancreas, gallbladder and adrenal glands appear unremarkable. 4 mm cyst of the inferior pole left kidney. No renal or ureteral calculi or obstructive uropathy. Urinary bladder, uterus and adnexa appear unremarkable. Possible soft tissue defect within the region of the vagina appears unchanged. Postoperative changes from subtotal colectomy with right mid abdominal colostomy redemonstrated. No small bowel obstruction. Temperature probe within the rectum redemonstrated. Adenopathy of the abdominal right lower quadrant measures up to 1.3 x 2.2 cm. There is a stellate-shaped fistula within the right midabdomen redemonstrated with surrounding mucosal hyperemia. Is appears to connect an adjacent loop of small bowel with the colostomy. Peripherally enhancing sinus tract extends into the abdominal wall right rectus sheath musculature with air and air, fluid and contrast noted within this distribution on image 192 series 3. Asymmetric enlargement with inflammation of the right rectus sheath. Inflammatory stranding with mild free fluid is noted surrounding the sinus tracts. Mild mucosal hyperemia of the colostomy. The corrected redemonstrated. Bones appear to be intact. IMPRESSION: 1. Postoperative changes from prior subtotal colectomy with right mid abdominal colostomy. Hyperenhancement of the colostomy redemonstrated suggestive of active inflammation. 2. Peripheral enhancement of an irregular multidirectional fistula with adjacent sinus tracts noted adjacent to the colostomy with extension to an adjacent loop of small bowel. Additionally, there is new extension and involvement of sinus tracts into the right rectus sheath which demonstrates associated myositis and phlegmonous change. No drainable fluid collection. 3. Right lower quadrant adenopathy, likely on a reactive basis. 4. Reactive mesenteric stranding with trace free fluid of the abdominal right lower quadrant. 5. No bowel obstruction. 6. Additional findings as above. Electronically signed by: Slick Diaz M.D. 11/15/2018 6:45 PM Blood Pressure Blood Pressure Findings: Low blood pressure Discharge Plan Visit Data Chief Complaint: Abdominal Pain ED Provider: Tee Bhakta Discharge Problem: Inflammatory bowel disease, Myositis, Small bowel fistula, Leukocytosis, Right sided abdominal pain Patient Disposition: Being Evaluated by Hospitalist Forms Stand Alone Forms: Call Back [facility] Prescriptions Prescriptions: No Action quetiapine 25 mg tablet 25 mg PO BID RF: 0 quetiapine 200 mg tablet 200 mg PO HS RF: 0 sumatriptan succinate 50 mg tablet 50 mg PO UD PRN (Reason: Migraine Headache) RF: 0 gabapentin 300 mg capsule 300 mg PO HS RF: 0 albuterol sulfate [Ventolin HFA] 90 mcg/actuation HFA aerosol inhaler 2 puff inhalation Q4 PRN (Reason: cough,sob,wheezing) RF: 0 Flintstones Gummies Tablet,Chewable 1 tab PO QAM RF: 0 atenolol 25 mg tablet 12.5 mg PO QAM Qty: 0 RF: 0 warfarin [Coumadin] 3 mg Tablet 1.5 mg PO 4XWK RF: 0 multivitamin Tablet 1 tab PO DAILY RF: 0 celecoxib 100 mg Capsule 100 mg PO DAILY RF: 0 Breo Ellipta 100-25 mcg/dose Blister With Device 1 inh INHALATION DAILY RF: 0 umeclidinium 62.5 mcg/actuation Blister With Device 1 inh INHALATION DAILY RF: 0 mesalamine 400 mg Capsule (With Del Rel Tablets) 1,600 mg PO TID RF: 0 Remicade 100 mg Recon Soln 100 mg IV Q8WK RF: 0 dicyclomine 10 mg capsule 10 mg PO BID PRN (Reason: Abdominal Pain) RF: 0 escitalopram oxalate 10 mg tablet 10 mg PO DAILY RF: 0 warfarin 3 mg Tablet 3 mg PO 3XWK RF: 0 mirtazapine [Remeron] 15 mg Tablet 7.5 mg PO DAILY RF: 0 prazosin 2 mg 2 mg PO HS RF: 0 Referrals Referrals: Kathy Stoddard DO [Primary Care Provider] - The scribe's documentation has been prepared under my direction and personally reviewed by me in its entirety. I confirm that the note above accurately reflects all work, treatment, procedures, and medical decision making performed by me.
[2018-11-15] MEDS ORDERED: POTASSIUM CHLORIDE 20 MEQ TABCR PO STA (22:16)
[2018-11-15] MEDS ORDERED: SUMAtriptan succinate 50 MG TAB PO PRN (22:16)
[2018-11-15] MEDS ORDERED: NITROGLYCERIN SL 0.4 MG/TAB TAB SL PRN (22:16)
[2018-11-15] MEDS ORDERED: ALBUTEROL HFA 8 GM INHALER INH PRN (22:16)
[2018-11-15] MEDS ORDERED: ERTAPENEM CONSULT ACTIVE PRN (22:38)
[2018-11-15 22:57] LABS: INR 1.9 (0.9-1.1); Partial Thromboplastin Ratio 1.3; Prothrombin Time 18.7 Seconds (9.0-12.0)
[2018-11-15] MEDS: WARFARIN SOD 0.5 MG TAB PO SCH (23:09)
[2018-11-15] MEDS: DICYCLOMINE HCL 10 MG CAP PO PRN (23:10)
[2018-11-15] MEDS: MESALAMINE 400 MG CAPDR PO SCH (23:10)
[2018-11-15] MEDS: GABAPENTIN 300 MG CAP PO SCH (23:11)
[2018-11-15] MEDS: QUETIAPINE FUMARATE 25 MG TABLET PO SCH (23:11)
[2018-11-15] MEDS: QUETIAPINE FUMARATE 200 MG TAB PO SCH (23:12)
[2018-11-15] MEDS: MoRPHine SULFATE 2 MG/ML CARP IV PRN (23:27)
--- NOTE | 2018-11-15 23:47 | History and Physical Report ---
DATE OF ADMISSION: 11/15/2018 CHIEF COMPLAINT: Abdominal pain. HISTORY OF PRESENT ILLNESS: This is a 38-year-old female with past medical history significant for history of fistulizing ileocolonic Crohn's disease, status post right hemicolectomy in 2008 and subsequent subtotal colectomy with ileostomy in 2013, severe COPD, bipolar disorder, tobacco use disorder, migraines, hypertension, history of renal calculi, recent history of PE, on Coumadin. The patient used to be on Remicade, but not taking Remicade since last April because of transport issues. She was here on 09/23/2018, at that time found to have progression of rectovaginal fistula and also phlegmon adjacent to distal ileum. Was on Rocephin and later treated with Augmentin and also she was again admitted on 09/27/2018, at that time with a diagnosis of PE, discharged on Coumadin, and she has followup appointment recently with GI and they plan to start on Inflectra 5 mg per kg ,per patient coming Saturday. She is on currently mesalamine 1600 mg t.i.d. She is also seen by Psych and also GI nutrition. GI nutrition recommended home TPN, but they are concerned about her home social situation and hygiene putting her at risk for sepsis. The patient today comes here because of abdominal pain that started today and also has fever at home. Denies any drainage around the ileostomy site. She has chronic dermatitis at the ileostomy site and lower abdomen and dry skin, following with dermatology. Denies any discharge from anywhere. Has some dizziness, headache, no blurred vision, no sore throat. Appetite is okay. She says she is eating regular food and she states that since last admission her weight is same, but not gaining any more weight. Denies any chest pain. Has chronic cough, once in a while she brings up some mucus. No nausea, no vomiting, no hematuria, no burning micturitions. She is moving her bowels normally and no blood in the stools, no diarrhea. No swelling in the legs, no rash. She says she is ambulating without any help. Lives with her . She takes help for ride with her appointments. Currently resting comfortably and hemodynamically stable. ER talked with GI and they recommended antibiotics Invanz and going to be evaluated in the a.m. We will keep the patient on clear liquid diet for now and n.p.o. after midnight for any further procedures. ALLERGIES: CODEINE, METRONIDAZOLE, CIPRO, LATEX, PENICILLINS, PREDNISONE, ASPIRIN, TRAMADOL, IRON INFUSIONS. PAST MEDICAL HISTORY: As mentioned above. PAST SURGICAL HISTORY: Colonoscopy with biopsy, colostomy, knee surgeries, exploratory laparotomy with lysis of adhesions, right hemicolectomy with primary anastomosis, drainage of abdominal wall abscess, right lower quadrant, removal of rectum and colon. MEDICATIONS: Currently the patient is on prazosin 2 mg 1 capsule at bedtime, Seroquel 225 mg at bedtime, Remeron 7.5 mg at bedtime, Lexapro 10 mg p.o. daily, atenolol 12.5 mg p.o. daily, multivitamin 1 tablet daily, Coumadin 3 mg tablet as directed, Flintstones Gummies, omega 3 DHA one tablet daily, Incruse Ellipta 62.5 mcg one inhalation daily, Celebrex 100 mg p.o. daily, mesalamine DR 600 mg p.o. t.i.d., Bentyl 10 mg p.o. b.i.d. p.r.n., Ventolin 2 puffs q. 4 hours p.r.n., gabapentin 300 mg p.o. at bedtime, Imitrex p.r.n., Breo Ellipta 100/25 mcg 1 puff daily, oxygen 2 liters as directed. FAMILY HISTORY: Significant for father has Crohn's disease, thyroid disorder, hypertension, heart disorder; mother has hypertension, bipolar and depression, thyroid disorder. SOCIAL HISTORY: , lives with her , smokes half pack a day for 24 years. No alcohol use, no drug use. REVIEW OF SYSTEMS: As per HPI. Rest of the review of systems negative. PHYSICAL EXAMINATION: GENERAL: The patient is very thin and frail, not in acute distress. VITAL SIGNS: Temperature 37.5, pulse 68, respiratory rate 18, blood pressure 87/61, oxygen 95% on room air. HEENT: No pallor, no icterus. Pupils equal, round, reactive to light. NECK: No JVD, no masses, no carotid bruit. CARDIOVASCULAR: S1, S2 heard, regular rate and rhythm, no murmur, no gallop. RESPIRATORY SYSTEM: Normal AP diameter. No accessory muscle use. No wheezing, no crackles. ABDOMEN: Soft, bowel sounds present. Mild discomfort. Ileostomy bag seen. Chronic skin changes with mild erythematous changes around the ileostomy bag. No drainage seen. EXTREMITIES: No edema, no erythema. LABORATORY DATA: WBC 10.3, hemoglobin 14, hematocrit 41, platelets 486. Sodium 135, potassium 3.3, chloride 101, bicarbonate 26, BUN 9, creatinine 0.6, serum glucose 95, calcium 8.9, total bilirubin 0.4, AST 13, ALT 22, alkaline phosphatase 111, lipase 151. HCG negative. Urinalysis positive for leukocyte esterase. IMAGING: CT of the abdomen and pelvis shows postoperative change from prior subtotal colectomy with right mid abdominal colostomy. Hyperenhancement of the colostomy re demonstrated suggestive of acute active inflammation, peripheral enhancement of an irregular multidirectional fistula with adjacent sinus tracts noted adjacent to the colostomy with extension into the adjacent loop of small bowel. Additionally, there is new extension and involvement of the sinus tract in the right rectus sheath, which demonstrated associated myositis and phlegmonous change. No drainable fluid collection. Right lower quadrant adenopathy, likely on a reactive basis. Reactive mesenteric stranding with trace free fluid of the abdomen, right lower quadrant. No bowel obstruction. ASSESSMENT AND PLAN: This is a 38-year-old female who presents with Crohn's flare and also sinus tract in the rectus sheath, with possible myositis and phlegmonous change. 1. Crohn's flare, multidirectional fistula, involvement of the sinus tract in the rectus sheath, associated myositis and phlegmonous change, no drainable collection seen. The patient is on mesalamine, but not on Remicade since last April. As per GI notes, she is supposed to be started on Inflectra soon, as per patient coming Saturday. ER talked to GI, is starting on IV Invanz and GI evaluation in the a.m. We will put on clear liquid diet, n.p.o. after midnight. We will closely monitor. Follow the cultures. 2. UTI?, follow the cultures. Antibiotics as above. 3. Recent history of pulmonary embolism, on Coumadin. We will follow the PT/INR. 4. Bipolar disorder. Continue her home medications. 5. Tobacco abuse, needs counseling. 6. History of palpitation, on atenolol currently at 12.5. 7. History of nightmares on prazosin. 8. History of chronic obstructive pulmonary disease. Continue current home inhalers. 9. History of migraine, Imitrex p.r.n. 10. Deep venous thrombosis prophylaxis, currently on Coumadin. Will follow the PT/INR. 11. Code status. Full code. DISPOSITION: Admit to med/surg tele. PT/OT per discharge. Social service to help with discharge planning. Expect discharge home and follow with PCP and GI. ANN
[2018-11-16 09:25] LABS: Basophils # (auto) 0.05 K/uL (0-0.2); Basophils % (auto) 0.5 %; Eosinophils # (auto) 0.07 K/uL (0-0.5); Eosinophils % (auto) 0.7 %; Hematocrit (blood only) 33.5 % (37-47); Hemoglobin 11.1 g/dL (12.0-16.0); Immature Granulocytes # (auto) 0.03 K/uL (0.00-0.02); Immature Granulocytes % (auto) 0.3 %; Lymphocytes # (auto) 0.78 K/uL (1.2-3.4); Lymphocytes % (auto) 7.7 %; Mean Corpuscular Hemoglobin 27.8 pg (25-34); Mean Corpuscular Hgb Conc 33.1 g/dL (32-36); Mean Corpuscular Volume 83.8 fL (80-100); Mean Platelet Volume 8.9 fL (7.4-10.4); Monocytes # (auto) 1.18 K/uL (0.11-0.59); Monocytes % (auto) 11.6 %; Neutrophils # (auto) 8.05 K/uL (1.4-6.5); Neutrophils % (auto) 79.2 %; Platelet Count 333 K/uL (130-400); RDW Coefficient of Variation 13.8 % (11.5-14.5); RDW Standard Deviation 42.7 fL (36.4-46.3); White Blood Count 10.16 K/uL (4.8-10.8)
[2018-11-16 09:39] LABS: BUN Creatinine Ratio 8.2 (10-20); Calcium 8.6 mg/dl (8.5-10.1); Creatinine Clr Calc Pharmacy 61.8 ml/min; Est GFR (African American) 129.4; Est GFR (Non-African American) 111.6; Potassium 3.4 mmol/L (3.5-5.1)
[2018-11-16] MEDS: MULTIVITAMIN TAB PO SCH (09:43)
[2018-11-16] MEDS: MIRTAZAPINE TAB 15 MG TAB PO SCH (09:44)
[2018-11-16] MEDS: ATENOLOL 25 MG TABLET PO SCH (09:46)
[2018-11-16] MEDS: ESCITALOPRAM OXALATE 10 MG TAB PO SCH (09:46)
[2018-11-16] MEDS: QUETIAPINE FUMARATE 25 MG TABLET PO SCH ×2 (09:47→20:44)
[2018-11-16] MEDS: MESALAMINE 400 MG CAPDR PO SCH ×3 (09:48→20:45)
[2018-11-16] MEDS: FLINTSTONES COMPLETE CHEWABLE TAB PO SCH (09:48)
[2018-11-16] MEDS: MoRPHine SULFATE 2 MG/ML CARP IV PRN ×3 (13:21→22:04)
--- NOTE | 2018-11-16 14:51 | Hospitalist Progress Note ---
Date of Service November 16, 2018 Assessment & Plan (1) Crohn's disease: History of Crohn's disease status post right hemicolectomy status post ileostomy, admitted with severe abdominal pain, CT abdomen pelvis: 1. Postoperative changes from prior subtotal colectomy with right mid abdominal colostomy. Hyperenhancement of the colostomy redemonstrated suggestive of active inflammation. 2. Peripheral enhancement of an irregular multidirectional fistula with adjacent sinus tract noted adjacent to the colostomy with extension to an additional loop of small bowel. Additionally there is new extension and involvement of sinus tract into the right rectus sheath which demonstrates stated myositis and phlegmonous change line no drainable fluid collection No evidence of sepsis, Mild leukocytosis present on admission, resolved normal white count today GI consulted, appreciate input-recommends not to treat with IV steroids for possible Crohn's flare in the setting of ongoing infection possible abscess Recommends IV fluids supportive care, empiric antibiotic with IV Zosyn, bowel rest No indication for surgery at this point Given prior history of multiple surgery and complex inflammatory bowel disease/high risk for poor healing/infection post surgery or procedure Conservative management would be appropriate (2) Small bowel fistula: Due to above, Conservative management with bowel rest empiric antibiotic IV fluids, pain control (3) History of hemicolectomy: Secondary to inflammatory bowel disease, Crohn's colitis (4) Ileostomy in place: Having normal output through ileostomy Will order for stool C. difficile toxin assay CODE STATUS: Full code DVT prophylaxis SCD and teds Patient is encouraged to ambulate Disposition: Expected to be discharged home when medically stable Subjective Still have mild abdominal pain, improved from prior No nausea vomiting No fever chills Does not have any bloody bowel movement Tolerating clear liquid diet Review of Systems Review of Systems: All systems reviewed & are unremarkable except as noted in HPI & below Physical Exam Constitutional: + ill appearing and + cachectic; no acute distress Eyes: PERRL, conjunctivae normal, anicteric sclerae ENMT: external ear and nose normal, oropharynx normal Neck: trachea midline, no thyromegaly Respiratory: normal respiratory effort, lungs clear to auscultation Cardiovascular: RRR, no murmur, no edema Gastrointestinal (Abdomen): Inspection/Auscultation: abdomen not distended Percussion/Palpation: abdomen soft Colostomy intact with normal output Musculoskeletal: no cyanosis or clubbing, extremities motor strength 5/5 Neurologic: patellar DTR's 2+ bilat, sensation intact Psychiatric: A+Ox3, euthymic affect Results & Data Vital Signs (Past 12 Hours) Vital Signs Temp Pulse Resp BP BP Pulse Ox 11/16/18 12:11 36.9 C 93 H 18 104/69 92 11/16/18 08:00 37.3 C 80 18 88/46 L 89/54 L 93 11/16/18 03:00 37.5 C 68 18 94/54 L 90 (1) Crohn's disease Gastrointestinal tract location: small intestine Digestive disease complication type: with abscess Qualified Code(s): K50.014 - Crohn's disease of small intestine with abscess
--- NOTE | 2018-11-16 14:52 | Consultation Report ---
DATE OF CONSULTATION: 11/16/2018 REFERRED BY: Dr. Negron. I was asked by Dr. Negron to consult on this woman for evaluation of abdominal pain and Crohn disease. HISTORY OF PRESENT ILLNESS: The patient is a 38-year-old who states she was diagnosed with Crohn's disease in 2008, she had a right hemicolectomy and ileostomy. By report, this was performed in [place]. She typically follows with Nola Daniel here locally. She had been on Remicade, but has not had Remicade since April. She states because she could not get to her appointments. She has had increasing abdominal pain. On the of this month, she went to the Emergency Room and a CAT scan at that time did not show any signs of abscess or collection, though she did have some stellate fistulas in the right mid abdomen that seemed connected to her colostomy. However, upon presentation last night, repeat CAT scan revealed fistulous tracts were more extensive. There were some phlegmonous changes and possible myositis related to the right rectus sheath related to this. There was mesenteric stranding as well. Because of this and her symptoms and elevated white count, there was concern about impending abscess and worsening Crohn's disease, especially since she has not been on her Remicade. Reportedly, she was going to be restarting her Remicade on Saturday. PAST MEDICAL HISTORY: I reviewed her medical records and her past medical history and her past medical history is rather extensive and consists of severe COPD, bipolar disease, migraines, hypertension, PE and she is on Coumadin. OUTPATIENT MEDICATIONS: Include Seroquel, Remeron, Lexapro, atenolol, Coumadin, Ellipta inhaler, Celebrex, mesalamine, Bentyl, gabapentin and oxygen. ALLERGIES: SHE STATES SHE IS ALLERGIC TO CODEINE, METRONIDAZOLE, CIPRO, LATEX, PENICILLIN, PREDNISONE, ASPIRIN, TRAMADOL, AND IRON INFUSIONS. SOCIAL HISTORY: Significant for being a smoker, half pack a day. She denies alcohol use. FAMILY HISTORY: Significant for Crohn's disease in her father. REVIEW OF SYSTEMS: As above, otherwise she denies any productive cough. She states that she has had no change in vision or hearing. She has had no seizures. She denies any change in mood or depression recently. She denies any joint swelling. She denies any easy bruising. She has had no dysuria. She denies any palpitations or chest pain on exertion. She denies any hemoptysis or hematemesis. She denies any dysphagia. PHYSICAL EXAMINATION: GENERAL: Reveals a pleasant woman appearing rather cachectic, resting in bed. VITAL SIGNS: Most recent temperature is 104/69, pulse is 93, temperature is 36.9, weight is 33.5 kilograms. SKIN: Anicteric. EYES: Show anicteric sclerae. MOUTH: Clear of lesions. NECK: Very thin but without any adenopathy. CHEST: Has scattered coarse breath sounds and some rhonchi. HEART: Regular. ABDOMEN: Very thin, soft. There are no masses. She has some generalized tenderness to deep palpation. She has good bowel sounds. EXTREMITIES: Extremely thin, warm with good distal pulses. NEUROLOGIC: She is alert and oriented x3 and grossly intact. LABORATORY DATA: CAT scan is as outlined above. Her white blood cell count from last night went down from 16-10,000 with antibiotics. Her hemoglobin is 11.1, platelet count is down from 486,000-333,000. Liver enzymes are normal. IMPRESSION: Complicated Crohn's disease with fistulous formation and possible early abscess with elevated white count. I agree with antibiotic coverage. Keeping her on clear liquids and following her closely. She will have to address restarting her biologic with her regular providers. Certainly compliance needs to be stressed with her. At this point, I do not think she has any surgical abdomen or collections that need to be drained, but she needs to be followed closely.
[2018-11-16] MEDS: NSS + 20MEQ KCL 20 MEQ/1,000 ML BAG IV SCH ×2 (15:30→22:04)
[2018-11-16] MEDS: POTASSIUM CHLORIDE / WTR 10 MEQ/100 ML PLCT IV SCH (15:31)
[2018-11-16] MEDS: WARFARIN SOD 0.5 MG TAB PO SCH (15:42)
[2018-11-16] MEDS: ERTAPENEM SODIUM 1,000 MG in SODIUM CHLORIDE 0.9% 50 ML IV SCH (17:52)
[2018-11-16] MEDS: GABAPENTIN 300 MG CAP PO SCH (20:44)
[2018-11-16] MEDS: DICYCLOMINE HCL 10 MG CAP PO PRN (20:45)
[2018-11-16] MEDS: QUETIAPINE FUMARATE 200 MG TAB PO SCH (20:45)
[2018-11-16] MEDS ORDERED: PRAZOSIN HCL 1 MG CAP PO SCH (21:00)
[2018-11-16 22:23] LABS: INR 2.5 (0.9-1.1)
[2018-11-17] MEDS: MoRPHine SULFATE 2 MG/ML CARP IV PRN ×4 (04:01→23:49)
[2018-11-17] MEDS: NSS + 20MEQ KCL 20 MEQ/1,000 ML BAG IV SCH ×2 (05:23→11:02)
[2018-11-17 07:00] LABS: BUN Creatinine Ratio 6.9 (10-20); Calcium 7.8 mg/dl (8.5-10.1); Creatinine Clr Calc Pharmacy 78.6 ml/min; Est GFR (African American) 138.5; Est GFR (Non-African American) 119.5; Magnesium 1.7 mg/dl (1.8-2.4); Potassium 3.6 mmol/L (3.5-5.1)
[2018-11-17] MEDS: ESCITALOPRAM OXALATE 10 MG TAB PO SCH (07:54)
[2018-11-17] MEDS: MESALAMINE 400 MG CAPDR PO SCH ×3 (07:54→20:31)
[2018-11-17] MEDS: MIRTAZAPINE TAB 15 MG TAB PO SCH (07:55)
[2018-11-17] MEDS: MULTIVITAMIN TAB PO SCH (07:56)
[2018-11-17] MEDS: QUETIAPINE FUMARATE 25 MG TABLET PO SCH ×2 (07:56→20:32)
[2018-11-17] MEDS: ATENOLOL 25 MG TABLET PO SCH (07:57)
[2018-11-17] MEDS: FLINTSTONES COMPLETE CHEWABLE TAB PO SCH (07:58)
[2018-11-17] MEDS ORDERED: Nursing to Pharmacy Communication ONE (10:06)
--- NOTE | 2018-11-17 11:24 | Gastroenterology Progress Note ---
Date of Service November 17, 2018 Assessment & Plan (1) Right sided abdominal pain: (2) Crohn's disease: Pt is a 38 year old female with hx of fistulizing Crohn's disease s/p R hemicolectomy then subtotal colectomy in 2013 w ileostomy creation. She has setons placed rectally by her surgeon in [place], hasn't followed up there >1 year due to transportation issues. Recently established w Colorectal Surgery (Dr. Dave) and had 2 out of 3 setons removed. She has issues w continued weight loss, recently started on Remeron and appetite improved some. Currently admitted w R sided abd pain. CT w fistulous and phelgmon, R sided mesenteric stranding. - Continue currently antibx coverage - Advance diet as tolerated - She had missed several appts for Inflectra infusion citing transportation issue. Recently rescheduled for med induction. We will reschedule due to her admission - Check Cdiff and stool cx - Dicyclomine prn abd pain - She eventually should f/u w Colorectal surgery for setons, fistula management - ? temperature probe in rectum -> reviewed CT w Dr. Crain , suspect likely setons seen. Supervising Physician Co-Signing Physician Notes I have personally seen and examined the patient with AMARILIS Mac on 11/17/18. Her note reflects my exam and findings. I agree with her impression and plan. The CT scan shows setons on rectal area. Cont antibiotics. Tiburcio Crain M.D. Subjective Pt deneis any n/v, still having R sided abd pain but improved. Passing loose stools from ostomy. Review of Systems Review of Systems: All systems reviewed & are unremarkable except as noted in HPI & below Physical Exam Constitutional: + cachectic, well groomed, cooperative and comfortable Eyes: PERRL, conjunctivae normal, anicteric sclerae ENMT: external ear and nose normal, oropharynx normal Respiratory: normal respiratory effort, lungs clear to auscultation Cardiovascular: RRR, no murmur, no edema Gastrointestinal (Abdomen): Percussion/Palpation: + abdomen tender (along R mid abd area) ileostomy to R side abd area bag empty RECTAL exam (done w RN farm machine tender in room: Re[facility]) - setons in place; i cannot proceed with internal exam as pt was c/o pain Skin: no rashes, warm and dry no jaundice Psychiatric: A+Ox3, euthymic affect Lymphatic: no lymphedema Results & Data Vital Signs (Past 12 Hours) Vital Signs Temp Pulse Resp BP BP Pulse Ox 11/17/18 08:00 78/37 L 78/58 L 11/17/18 07:12 36.7 C 68 16 82/50 L 96 11/17/18 04:56 37.4 C 87 20 113/68 97 (1) Crohn's disease Digestive disease complication type: with abscess Gastrointestinal tract location: small intestine Qualified Code(s): K50.014 - Crohn's disease of small intestine with abscess
[2018-11-17] MEDS ORDERED: LACTATED RINGER'S 500 ML IV ONE (12:15)
[2018-11-17] MEDS: MAGNESIUM SULFATE / D5W 1 GM/100 ML BAG IV SCH (13:37)
[2018-11-17] MEDS: POTASSIUM CHLORIDE 20 MEQ in LACTATED RINGER'S 1,000 ML IV SCH ×2 (13:37→19:16)
[2018-11-17] MEDS: WARFARIN SOD 3 MG TAB PO SCH (15:31)
--- NOTE | 2018-11-17 18:02 | Hospitalist Progress Note ---
Date of Service November 17, 2018 Assessment & Plan (1) Crohn's disease: History of Crohn's disease status post right hemicolectomy status post ileostomy, admitted with severe abdominal pain Normal white count no evidence of sepsis:, CT abdomen pelvis: 1. Postoperative changes from prior subtotal colectomy with right mid abdominal colostomy. Hyperenhancement of the colostomy redemonstrated suggestive of active inflammation. 2. Peripheral enhancement of an irregular multidirectional fistula with adjacent sinus tract noted adjacent to the colostomy with extension to an additional loop of small bowel. Additionally there is new extension and involvement of sinus tract into the right rectus sheath which demonstrates stated myositis and phlegmonous change line no drainable fluid collection No evidence of sepsis, Mild leukocytosis present on admission, resolved normal white count today GI consulted, appreciate input-recommends not to treat with IV steroids for possible Crohn's flare in the setting of ongoing infection possible abscess Recommends IV fluids supportive care, empiric antibiotic with IV Zosyn, bowel rest No indication for surgery at this point Given prior history of multiple surgery and complex inflammatory bowel disease/high risk for poor healing/infection post surgery or procedure Conservative management would be appropriate Diet slowly advanced, per GI (2) Small bowel fistula: Due to above, Treated conservatively, clinically improved Appreciate input from GI, diet advanced continue empiric antibiotic, IV fluids (3) History of hemicolectomy: Secondary to inflammatory bowel disease, Crohn's colitis (4) Ileostomy in place: Having normal output through ileostomy Will order for stool C. difficile toxin assay CODE STATUS: Full code DVT prophylaxis SCD and teds Patient is encouraged to ambulate Disposition: Expected to be discharged home when medically stable Subjective Diet advanced, tolerating well, blood pressure remains low, contributed IV bolus, will continue to run IV fluids at the rate of 150 mL/h No evidence of overwhelming infection or sepsis, She is afebrile, normal white count Physical Exam Constitutional: + ill appearing and + cachectic; no acute distress Eyes: PERRL, conjunctivae normal, anicteric sclerae ENMT: external ear and nose normal, oropharynx normal Neck: trachea midline, no thyromegaly Respiratory: normal respiratory effort, lungs clear to auscultation Cardiovascular: RRR, no murmur, no edema Gastrointestinal (Abdomen): Inspection/Auscultation: abdomen not distended Percussion/Palpation: abdomen soft Musculoskeletal: no cyanosis or clubbing, extremities motor strength 5/5 Neurologic: patellar DTR's 2+ bilat, sensation intact Psychiatric: A+Ox3, euthymic affect Results & Data Vital Signs (Past 12 Hours) Vital Signs Temp Pulse Resp BP BP Pulse Ox 11/17/18 15:05 36.4 C L 89 18 101/64 95 11/17/18 12:00 36.8 C 71 18 93/59 L 96 11/17/18 08:00 78/37 L 78/58 L 11/17/18 07:12 36.7 C 68 16 82/50 L 96 (1) Crohn's disease Digestive disease complication type: with abscess Gastrointestinal tract location: small intestine Qualified Code(s): K50.014 - Crohn's disease of small intestine with abscess
[2018-11-17] MEDS: ERTAPENEM SODIUM 1,000 MG in SODIUM CHLORIDE 0.9% 50 ML IV SCH (18:30)
[2018-11-17] MEDS: GABAPENTIN 300 MG CAP PO SCH (20:31)
[2018-11-17] MEDS: QUETIAPINE FUMARATE 200 MG TAB PO SCH (20:32)
[2018-11-17 22:28] LABS: INR 2.5 (0.9-1.1)
[2018-11-18] MEDS: POTASSIUM CHLORIDE 20 MEQ in LACTATED RINGER'S 1,000 ML IV SCH ×2 (01:26→08:52)
[2018-11-18] MEDS: ACETAMINOPHEN 325 MG TAB PO PRN (04:28)
[2018-11-18] MEDS: MoRPHine SULFATE 2 MG/ML CARP IV PRN (06:03)
[2018-11-18 08:13] LABS: BUN Creatinine Ratio 8.5 (10-20); Calcium 7.8 mg/dl (8.5-10.1); Creatinine Clr Calc Pharmacy 97.2 ml/min; Est GFR (African American) 143.2; Est GFR (Non-African American) 123.6; Magnesium 1.9 mg/dl (1.8-2.4); Potassium 3.7 mmol/L (3.5-5.1)
[2018-11-18] MEDS: MESALAMINE 400 MG CAPDR PO SCH ×3 (08:13→20:27)
[2018-11-18] MEDS: FLINTSTONES COMPLETE CHEWABLE TAB PO SCH (08:15)
[2018-11-18] MEDS: ESCITALOPRAM OXALATE 10 MG TAB PO SCH (08:15)
[2018-11-18] MEDS: MIRTAZAPINE TAB 15 MG TAB PO SCH (08:16)
[2018-11-18] MEDS: MULTIVITAMIN TAB PO SCH (08:16)
[2018-11-18] MEDS: QUETIAPINE FUMARATE 25 MG TABLET PO SCH ×2 (08:18→20:27)
[2018-11-18] MEDS: HYDROmorphone INJ 1 MG/ML SYRINGE IV PRN ×3 (09:43→22:11)
--- NOTE | 2018-11-18 11:18 | Gastroenterology Progress Note ---
Date of Service November 18, 2018 Assessment & Plan (1) Right sided abdominal pain: (2) Crohn's disease: Pt is a 38 year old female with hx of fistulizing Crohn's disease s/p R hemicolectomy then subtotal colectomy in 2013 w ileostomy creation. She has setons placed rectally by her surgeon in [place], hasn't followed up there >1 year due to transportation issues. Recently established w Colorectal Surgery (Dr. Dave) and had 2 out of 3 setons removed. She has issues w continued weight loss, recently started on Remeron and appetite improved some. Currently admitted w R sided abd pain. CT w fistulous and phelgmon, R sided mesenteric stranding. - Continue current antibx coverage and consult ID for possible conversion to PO in anticipation for DC. - Advance diet as tolerated - She had missed several appts for Inflectra infusion citing transportation issue. Recently rescheduled for med induction. We will reschedule due to her admission - Check Cdiff and stool cx -> Cdiff negative, stool cx pending - Dicyclomine prn abd pain - She eventually should f/u w Colorectal surgery for setons, fistula management - ? temperature probe in rectum -> reviewed CT w Dr. Crain , suspect likely setons seen. Supervising Physician Co-Signing Physician Notes I have personally seen and examined the patient with AMARILIS Mac. Her note reflects my exam and findings. I agree with her impression and plan. Fe eling better and eating. Will need to restart Remicade as out patient. Tiburcio Crain M.D. Subjective Pt c/o persistent R sided abd pain last night but improved w Morphine. Denies any n/v. Notes stools from ostomy is forming up. Review of Systems Review of Systems: All systems reviewed & are unremarkable except as noted in HPI & below Physical Exam Constitutional: + cachectic, well groomed, cooperative and comfortable Eyes: PERRL, conjunctivae normal, anicteric sclerae ENMT: external ear and nose normal, oropharynx normal Respiratory: normal respiratory effort, lungs clear to auscultation Cardiovascular: RRR, no murmur, no edema Gastrointestinal (Abdomen): Percussion/Palpation: + abdomen tender (along R mid abd area) Skin: no rashes, warm and dry no jaundice Psychiatric: A+Ox3, euthymic affect Lymphatic: no lymphedema Results & Data Vital Signs (Past 12 Hours) Vital Signs Temp Pulse Resp BP BP Pulse Ox 11/18/18 07:00 36.7 C 60 16 93/55 L 95 11/18/18 05:59 36.8 C 69 95/61 L 97 11/18/18 04:10 37.8 C H 80 18 104/65 91/49 L 93 (1) Crohn's disease Digestive disease complication type: with abscess Gastrointestinal tract location: small intestine Qualified Code(s): K50.014 - Crohn's disease of small intestine with abscess
--- NOTE | 2018-11-18 12:47 | Hospitalist Progress Note ---
Date of Service November 18, 2018 Assessment & Plan (1) Crohn's disease: History of Crohn's disease status post right hemicolectomy status post ileostomy, admitted with severe abdominal pain Normal white count no evidence of sepsis:, Try to advance gradually: GI team following: Appreciate input CT abdomen pelvis: 1. Postoperative changes from prior subtotal colectomy with right mid abdominal colostomy. Hyperenhancement of the colostomy redemonstrated suggestive of active inflammation. 2. Peripheral enhancement of an irregular multidirectional fistula with adjacent sinus tract noted adjacent to the colostomy with extension to an additional loop of small bowel. Additionally there is new extension and involvement of sinus tract into the right rectus sheath which demonstrates stated myositis and phlegmonous change line no drainable fluid collection No evidence of sepsis, Mild leukocytosis present on admission, resolved normal white count today GI consulted, appreciate input-recommends not to treat with IV steroids for possible Crohn's flare in the setting of ongoing infection possible abscess Recommends IV fluids supportive care, empiric antibiotic with IV Zosyn, bowel rest No indication for surgery at this point Given prior history of multiple surgery and complex inflammatory bowel disease/high risk for poor healing/infection post surgery or procedure Conservative management would be appropriate Diet slowly advanced, per GI (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 intake (3) History of hemicolectomy: Secondary to inflammatory bowel disease, Crohn's colitis (4) Ileostomy in place: Having normal output through ileostomy Stool for C. difficile toxin assay negative CODE STATUS: Full code DVT prophylaxis SCD and teds Patient is encouraged to ambulate Disposition: Expected to be discharged home when medically stable Subjective , blood pressure remains stable, SBP in 90s: No complaint of dizzy spell or lightheadedness Reviewed patient's prior vitals, patient's blood pressure remains in low 90s 200s Order to DC IV fluids Diet advanced to low residual, tolerating well Physical Exam Constitutional: + ill appearing and + cachectic; no acute distress Eyes: PERRL, conjunctivae normal, anicteric sclerae ENMT: external ear and nose normal, oropharynx normal Neck: trachea midline, no thyromegaly Respiratory: normal respiratory effort, lungs clear to auscultation Cardiovascular: RRR, no murmur, no edema Gastrointestinal (Abdomen): Inspection/Auscultation: abdomen not distended Percussion/Palpation: abdomen soft Musculoskeletal: no cyanosis or clubbing, extremities motor strength 5/5 Neurologic: patellar DTR's 2+ bilat, sensation intact Psychiatric: A+Ox3, euthymic affect Results & Data Vital Signs (Past 12 Hours) Vital Signs Temp Pulse Resp BP BP Pulse Ox 11/18/18 07:00 36.7 C 60 16 93/55 L 95 11/18/18 05:59 36.8 C 69 95/61 L 97 11/18/18 04:10 37.8 C H 80 18 104/65 91/49 L 93 (1) Crohn's disease Gastrointestinal tract location: small intestine Digestive disease complication type: with abscess Qualified Code(s): K50.014 - Crohn's disease of small intestine with abscess
[2018-11-18] MEDS: WARFARIN SOD 0.5 MG TAB PO SCH (15:32)
[2018-11-18] MEDS: ERTAPENEM SODIUM 1,000 MG in SODIUM CHLORIDE 0.9% 50 ML IV SCH (19:43)
[2018-11-18] MEDS: QUETIAPINE FUMARATE 200 MG TAB PO SCH (20:27)
[2018-11-18] MEDS: GABAPENTIN 300 MG CAP PO SCH (20:27)
[2018-11-18 22:33] LABS: INR 1.8 (0.9-1.1); Prothrombin Time 17.4 Seconds (9.0-12.0)
[2018-11-19] MEDS: HYDROmorphone INJ 1 MG/ML SYRINGE IV PRN ×2 (05:48→13:17)
[2018-11-19] MEDS: ACETAMINOPHEN 325 MG TAB PO PRN (07:07)
[2018-11-19] MEDS: QUETIAPINE FUMARATE 25 MG TABLET PO SCH ×2 (07:58→20:54)
[2018-11-19] MEDS: MULTIVITAMIN TAB PO SCH (07:58)
[2018-11-19] MEDS: MIRTAZAPINE TAB 15 MG TAB PO SCH (07:59)
[2018-11-19] MEDS: ESCITALOPRAM OXALATE 10 MG TAB PO SCH (07:59)
[2018-11-19] MEDS: FLINTSTONES COMPLETE CHEWABLE TAB PO SCH (07:59)
[2018-11-19] MEDS: MESALAMINE 400 MG CAPDR PO SCH ×3 (08:00→20:54)
[2018-11-19 08:10] LABS: Hematocrit (blood only) 29.5 % (37-47); Hemoglobin 9.8 g/dL (12.0-16.0); Mean Corpuscular Hemoglobin 27.5 pg (25-34); Mean Corpuscular Hgb Conc 33.2 g/dL (32-36); Mean Corpuscular Volume 82.6 fL (80-100); Mean Platelet Volume 8.8 fL (7.4-10.4); Platelet Count 313 K/uL (130-400); RDW Coefficient of Variation 13.8 % (11.5-14.5); RDW Standard Deviation 42.1 fL (36.4-46.3); Red Blood Count 3.57 M/uL (4.2-5.4); White Blood Count 8.21 K/uL (4.8-10.8)
[2018-11-19 08:27] LABS: INR 1.6 (0.9-1.1); Prothrombin Time 15.6 Seconds (9.0-12.0)
[2018-11-19 08:50] LABS: BUN Creatinine Ratio 8.2 (10-20); Calcium 7.8 mg/dl (8.5-10.1); Creatinine Clr Calc Pharmacy 84.6 ml/min; Est GFR (African American) 136.8; Potassium 3.2 mmol/L (3.5-5.1)
--- NOTE | 2018-11-19 09:28 | Gastroenterology Progress Note ---
Date of Service November 19, 2018 Assessment & Plan (1) Right sided abdominal pain: (2) Crohn's disease: 38 year old female with hx of fistulizing Crohn's disease s/p R hemicolectomy then subtotal colectomy in 2013 w ileostomy creation s/p seton placement >1 year ago lost to follow up re-established recently w/ Dr. Dave and had 2 out of 3 setons removed. She has issues w continued weight loss, recently started on Remeron and appetite improved some. Currently admitted w R sided abd pain. CT w fistulous and phelgmon, R sided mesenteric stranding clinically improving. - Continue current antibx coverage and consult ID for possible conversion to PO in anticipation for DC. - Advance diet as tolerated - She had missed several appts for [facility] infusion citing transportation issue. Recently rescheduled for med induction. We will reschedule due to her admission - Check Cdiff and stool cx -> Cdiff negative, stool cx negative to date but not finalized - Dicyclomine prn abd pain - She eventually should f/u w Colorectal surgery for setons, fistula management - I recommended ongoing discussion w/ primary team in regards to her nonproductive cough Thank you for allowing us to participate in the care of this patient. Please call with any acute changes, questions or concerns. Please see addendum below with additional recommendation from my supervising physician. Supervising Physician Co-Signing Physician Notes I have personally seen and examined the patient with AMARILIS Shah. Her note reflects my exam and findings. I agree with her impression and plan. Infectious disease should help guide her out patient antibiotic coverage given her complicated allergy history. Follow up with regular providers as an out patient to re start biologic tx for her Crohn's disease. Tiburcio Crain M.D. Subjective Late entry Pt was seen and evaluated, chart reviewed 0700 Concerned this AM about cough Non productive Abd pain is improving No nausea, vomiting Tolerated nearly 80% of tray this AM and but still working on breakfast Stool remains loose No change in frequency, consistency No black or bloody stools Review of Systems Constitutional: no fever and no chills Respiratory: + cough; no dyspnea Cardiovascular: no chest pain, no chest pain at rest and no dyspnea Gastrointestinal: + abdominal pain; no belching, no heartburn, no nausea, no coffee ground emesis, no hematemesis, no dysphagia and no cramping Physical Exam Constitutional: + ill appearing (chronically ill) and + thin; no acute distress Respiratory: normal respiratory effort and + cough; no respiratory distress Cardiovascular: RRR, no murmur, no edema Gastrointestinal (Abdomen): Inspection/Auscultation: normal bowel sounds Percussion/Palpation: + abdomen tender (generalized) and abdomen soft; no guard ing and abdomen not rigid Skin: no rashes, warm and dry Results & Data Vital Signs (Past 12 Hours) Vital Signs Temp Pulse Resp BP Pulse Ox 11/19/18 07:03 37.6 C H 80 20 100/63 92 11/18/18 23:00 37.4 C 87 17 99/63 L 94 Laboratory Results 11/19/18 11/19/18 11/19/18 Range/Units 07:59 07:59 07:59 WBC 8.21 (4.8-10.8) K/uL RBC 3.57 L (4.2-5.4) M/uL Hgb 9.8 L (12.0-16.0) g/dL Hct 29.5 L (37-47) % MCV 82.6 (80-100) fL MCH 27.5 (25-34) pg MCHC 33.2 (32-36) g/dL RDW Std Deviation 42.1 (36.4-46.3) fL RDW Coeff of Kaylan 13.8 (11.5-14.5) % Plt Count 313 (130-400) K/uL MPV 8.8 (7.4-10.4) fL PT 15.6 H (9.0-12.0) Seconds INR 1.6 H (0.9-1.1) Sodium 136 (136-145) mmol/L Potassium 3.2 L (3.5-5.1) mmol/L Chloride 104 (98-107) mmol/L Carbon Dioxide 28 (21-32) mmol/L Anion Gap 5.0 (3-11) BUN 4 L (7-18) mg/dl Creatinine 0.54 L (0.6-1.2) mg/dl Est Cr Clr Drug Dosing 84.6 ml/min Est GFR ( Amer) 136.8 Est GFR (Non-Af Amer) 118.0 BUN/Creatinine Ratio 8.2 L (10-20) Glucose 92 (70-99) mg/dl Calcium 7.8 L (8.5-10.1) mg/dl 11/18/18 Range/Units 22:05 WBC (4.8-10.8) K/uL RBC (4.2-5.4) M/uL Hgb (12.0-16.0) g/dL Hct (37-47) % MCV (80-100) fL MCH (25-34) pg MCHC (32-36) g/dL RDW Std Deviation (36.4-46.3) fL RDW Coeff of Kaylan (11.5-14.5) % Plt Count (130-400) K/uL MPV (7.4-10.4) fL PT 17.4 H (9.0-12.0) Seconds INR 1.8 H (0.9-1.1) Sodium (136-145) mmol/L Potassium (3.5-5.1) mmol/L Chloride (98-107) mmol/L Carbon Dioxide (21-32) mmol/L Anion Gap (3-11) BUN (7-18) mg/dl Creatinine (0.6-1.2) mg/dl Est Cr Clr Drug Dosing ml/min Est GFR ( Amer) Est GFR (Non-Af Amer) BUN/Creatinine Ratio (10-20) Glucose (70-99) mg/dl Calcium (8.5-10.1) mg/dl (1) Crohn's disease Digestive disease complication type: with abscess Gastrointestinal tract location: small intestine Qualified Code(s): K50.014 - Crohn's disease of small intestine with abscess
--- NOTE | 2018-11-19 11:08 | Infectious Disease Consult ---
Date of Consultation November 19, 2018 Assessment & Plan (1) Inflammatory bowel disease: Due to med intolerances, dont feel true allergy to pcn. Discussed limited abx options, she does not wish to undergo therapy with pcn due to chest tightness in past. I do not feel she has po alternative, would continue Ertapenem for 21 days, she is having + clinical response to this. Blood culture negative, ok for picc. would check cbc, cmp weekly while on therapy. (2) Myositis: History of Present Illness Attending Physician: Madhavi Oviedo, pt admitted with increased abd pain and fever. has chrons with several previous surgeries, follows regularly with surgery and GI. CT in ER shows new fistula and fat stranding, was placed on Ertapenem emperically and is tolerating well. States she is somewhat better, still with pain. no f/c. tmax overnight 37.8, currently afebrile. wbc improved from 16 to 8. creat 0.4, UA negative, c diff negative. Blood cultures negative x 2. has multiple allergies, pcn causes chest tightness, and cipro causes sob. she is declining pcn. she is tolerating current abx well. ID consulted for po alternative. Allergies Allergy/AdvReac Type Severity Reaction Status Date / Time codeine Allergy Severe SOB, Verified 11/02/18 01:50 NAUSEA -- MORPHINE OK, TAKES LORTAB AT HOME metronidazole Allergy Severe chest pain Verified 11/02/18 01:50 Cipro Allergy Unknown "I GET Verified 04/20/15 21:21 SICK AND CAN'T BREATHE RIGHT." ciprofloxacin Allergy Unknown "I GET Verified 11/02/18 01:50 SICK AND CAN'T BREATHE RIGHT." latex Allergy Unknown RASH Verified 11/02/18 01:50 Penicillins Allergy Unknown CHEST Unverified 11/02/18 01:50 TIGHTNESS prednisone AdvReac Intermediate Nausea Unverified 11/02/18 01:50 aspirin AdvReac Mild GI DISTRESS Verified 11/02/18 01:50 tramadol AdvReac Chest Unverified 11/15/18 17:11 Pain, N/V IRON INFUSIONS Allergy Unknown Chest Uncoded 11/02/18 01:50 tightness and SOB. Home Medications Home Medications Medication Instructions Recorded Confirmed Type Flintstones Gummies 1 tab PO QAM 09/23/18 11/15/18 History albuterol sulfate [Ventolin HFA] 2 puff INHALATION Q4 PRN 09/23/18 11/15/18 History gabapentin 300 mg PO HS 09/23/18 11/15/18 History quetiapine 25 mg PO BID 09/23/18 11/15/18 History quetiapine 200 mg PO HS 09/23/18 11/15/18 History sumatriptan succinate 50 mg PO UD PRN 09/23/18 11/15/18 History atenolol 12.5 mg PO QAM #0 tab 09/26/18 11/15/18 Rx celecoxib 100 mg PO DAILY 11/02/18 11/15/18 History dicyclomine 10 mg PO BID PRN 11/02/18 11/15/18 History fluticasone furoate-vilanterol 1 inh INHALATION DAILY 11/02/18 11/15/18 History [Breo Ellipta] infliximab [Remicade] 100 mg IV Q8WK 11/02/18 11/15/18 History mesalamine 1,600 mg PO TID 11/02/18 11/15/18 History multivitamin 1 tab PO DAILY 11/02/18 11/15/18 History umeclidinium 1 inh INHALATION DAILY 11/02/18 11/15/18 History warfarin [Coumadin] 1.5 mg PO 4XWK 11/02/18 11/15/18 History escitalopram oxalate 10 mg PO DAILY 11/15/18 11/15/18 History mirtazapine [Remeron] 7.5 mg PO DAILY 11/15/18 11/15/18 History prazosin 2 mg PO HS 11/15/18 11/15/18 History warfarin 3 mg PO 3XWK 11/15/18 11/15/18 History Patient History Medical History COPD (chronic obstructive pulmonary disease) Ileostomy in place Hypertension Crohn's disease (Chronic) Family history of heart disease Surgical History History of hemicolectomy Family History Unknown Family history non-contributory Other Family history of heart disease Social History Preferred Language: [place]an Communication Ability: Effective Manager Export Required: No Beliefs That Will Affect Care: None marital status: Current Living Situation: Spouse Feels Safe at Home: Yes Safety Concerns: Feels Safe At This Time Smoking Status: Current every day smoker Tobacco Type: cigarettes ; Cigarettes Per Day: 12 ; Second Hand Exposure: No ; Hx Alcohol Use: No Hx Substance Use: No Review of Systems Review of Systems: All systems reviewed & are unremarkable except as noted in HPI & below Physical Exam Constitutional: + cachectic; no acute distress and not ill appearing Eyes: PERRL, conjunctivae normal, anicteric sclerae ENMT: external ear and nose normal, oropharynx normal Neck: normal visual inspection Respiratory: normal respiratory effort, lungs clear to auscultation Cardiovascular: RRR, no murmur, no edema Gastrointestinal (Abdomen): Inspection/Auscultation: no abdominal edema Percussion/Palpation: + abdomen tender and abdomen soft; no guarding and abdomen not rigid Musculoskeletal: no cyanosis or clubbing, extremities motor strength 5/5 Skin: no rashes, warm and dry Psychiatric: A+Ox3, euthymic affect Results & Data Vital Signs (Past 12 Hours) Vital Signs Temp Pulse Resp BP Pulse Ox 11/19/18 07:03 37.6 C H 80 20 100/63 92 Laboratory Results Microbiology 11/17/18 15:42 Stool Escherichia coli Shiga Toxins Test - Preliminary 11/17/18 15:42 Stool Stool Culture - Preliminary No Salmonella isolated to date, No Shigella isolated to date, No Campylobacter jejuni isolated to date. 11/15/18 22:58 Blood Aerobic Blood Culture - Preliminary No growth in Aerobic bottle after 48 hours. 11/15/18 22:58 Blood Anaerobic Blood Culture - Preliminary No growth in Anaerobic bottle after 48 hours. 11/15/18 15:34 Blood Aerobic Blood Culture - Preliminary No growth in Aerobic bottle after 48 hours. 11/15/18 15:34 Blood Anaerobic Blood Culture - Preliminary No growth in Anaerobic bottle after 48 hours. PG Care Time/CCT Total # of Minutes Spent Total Time Spent with Patient: Total time spent is greater than 50% in coordination of care (as documented) at patient's floor/unit and/or counseling patient:
--- NOTE | 2018-11-19 15:51 | Hospitalist Progress Note ---
Date of Service November 19, 2018 Assessment & Plan (1) Small bowel fistula: fistulous disease with new tract extension into the rectus sheath causing myositis. Cont IV ertapenem, awaiting definitive abx recommendations. Clinically, she is improved and eating. Will need to follow-up with regular GI providers to reinitiate biologic therapy. (2) Myositis: IV ertapenem 2/2 infection with good response and multiple antibiotic allergies. (3) Crohn's disease: History of Crohn's disease status post right hemicolectomy status post ileostomy, admitted with severe abdominal pain Normal white count no evidence of sepsis:, Given prior history of multiple surgery and complex inflammatory bowel disease/high risk for poor healing/infection post surgery or procedure Conservative management would be appropriate-plan as above. Diet slowly advanced, per GI (4) History of hemicolectomy: Secondary to inflammatory bowel disease, Crohn's colitis (5) Ileostomy in place: Having normal output through ileostomy Stool for C. difficile toxin assay negative (6) Anemia: Acute, likely related to dilution from IVF administration this admission and frequent plebotomy. Will follow, No overt bleeding or need for transfusion at this time. (7) History of pulmonary embolism: Reports new diagnosis of first time PE/DVT August 2018 (report unavailable). As os October CTA scan, PE was resolved, however, cont warfarin to complete full treatment course. INR daily. (8) Smoking: Counseled on the heightened risk of smoking with Chron's disease, and she is adamant about continuing to smoke despite this. (9) DVT prophylaxis: warfarin full code dispo-to home when medically stable, pain well controlled and decide on definitive antibiotic course. Madhavi Oviedo DO [facility] Hospitalist Subjective 38 yo F admitted for abdominal pain. She is reporting that she "needs the Dilaudid. It's the ONLY thing that works for me." She has been getting 1mg IV pushes q6hrs. We agere to change that to 0.5mg IV q3h and try oxycodone for pain control. She reports that other hospitals have never provided her with narcotic pain medications for this in the past. "They have made me suffer." She is tolerating food, denies fevers or chills and reports an improvement in her abdominal pain. Review of Systems Review of Systems: All systems reviewed & are unremarkable except as noted in HPI & below Physical Exam Physical Exam: CONSTITUTIONAL: thin, vitals as above, generally well- appearing EYES: normal conjunctivae, no scleral icterus ENT: MMM RESPIRATORY: clear to auscultation bilaterally, no crackles, rales or wheezes, normal respiratory effort CARDIOVASCULAR: regular rate and rhythm, S1 and 2 heard without murmurs, gallops or rubs, no JVD, no peripheral edema GASTROINTESTINAL: normal bowel sounds, soft, TTP in RLQ and LLQ, no guarding MUSCULOSKELETAL: strength 5/5 throughout, head is normocephalic and atraumatic SKIN: warm and dry NEUROLOGIC: CN 2-12 grossly intact, no gross focal deficits. PSYCHIATRIC: alert cooperative and oriented to person, place and time. Results & Data Vital Signs (Past 12 Hours) Vital Signs Temp Pulse Resp BP Pulse Ox 11/19/18 15:21 36.6 C 80 20 99/64 L 90 11/19/18 07:03 37.6 C H 80 20 100/63 92 Laboratory Results Short CBC 11/19/18 Range/Units 07:59 WBC 8.21 (4.8-10.8) K/uL Hgb 9.8 L (12.0-16.0) g/dL Hct 29.5 L (37-47) % Plt Count 313 (130-400) K/uL BMP 11/19/18 07:59 Sodium 136 Potassium 3.2 L Chloride 104 Carbon Dioxide 28 BUN 4 L Creatinine 0.54 L Glucose 92 Calcium 7.8 L Medications Administered Current Inpatient Medications Acetaminophen (Tylenol) 650 mg PO Q4H PRN PRN Reason: Pain or Fever Stop: 12/15/18 22:15 Last Admin: 11/19/18 07:07 Dose: 650 mg Documented by: Albuterol (Ventolin Hfa) 2 puffs INH Q4 PRN PRN Reason: cough,sob,wheezing Stop: 12/15/18 22:15 Last Admin: 11/17/18 13:38 Dose: 2 puffs Documented by: Atenolol (Tenormin) 12.5 mg PO QAM CHACHA Stop: 12/16/18 08:59 Last Admin: 11/17/18 07:57 Dose: Not Given Documented by: Dicyclomine HCl (Bentyl) 10 mg PO BID PRN PRN Reason: Abdominal Pain Stop: 12/15/18 22:15 Last Admin: 11/16/18 20:45 Dose: 10 mg Documented by: Ertapenem (Consult) 1 ea N/A UD PRN PRN Reason: Consult Stop: 12/15/18 22:37 Escitalopram Oxalate (Lexapro Tab) 10 mg PO DAILY CHACHA Stop: 12/16/18 08:59 Last Admin: 11/19/18 07:59 Dose: 10 mg Documented by: Gabapentin (Neurontin) 300 mg PO HS CHACHA Stop: 12/15/18 22:15 Last Admin: 11/18/18 20:27 Dose: 300 mg Documented by: Hydromorphone HCl (Dilaudid) 1 mg IV Q6H PRN PRN Reason: Pain Stop: 12/02/18 09:11 Last Admin: 11/19/18 13:17 Dose: 1 mg Documented by: Ertapenem 1,000 mg/ Sodium (Chloride) 60 mls @ 100 mls/hr IV Q24H CHACHA Stop: 11/25/18 18:59 Last Infusion: 11/18/18 20:24 Dose: Infused Documented by: Mesalamine (Delzicol) 1,600 mg PO TID CHACHA Stop: 12/15/18 22:15 Last Admin: 11/19/18 13:55 Dose: 1,600 mg Documented by: Mirtazapine (Remeron) 7.5 mg PO DAILY CHACHA Stop: 12/16/18 08:59 Last Admin: 11/19/18 07:59 Dose: 7.5 mg Documented by: Multivitamins (Multivitamin Tab) 1 tab PO DAILY CHACHA Stop: 12/16/18 08:59 Last Admin: 11/19/18 07:58 Dose: 1 tab Documented by: Multivitamins/Folic Acid/Vitamin C (Flintstones Complete Chew Tab) 1 tab PO DAILY CHACHA Stop: 12/16/18 08:59 Last Admin: 11/19/18 07:59 Dose: 1 tab Documented by: Ondansetron HCl (Zofran) 4 mg IV Q6H PRN PRN Reason: Nausea Stop: 12/15/18 22:15 Quetiapine Fumarate (Seroquel) 25 mg PO BID CHACHA Stop: 12/15/18 22:15 Last Admin: 11/19/18 07:58 Dose: 25 mg Documented by: Quetiapine Fumarate (Seroquel) 200 mg PO HS [facility] Stop: 12/15/18 22:15 Last Admin: 11/18/18 20:27 Dose: 200 mg Documented by: Sumatriptan Succinate (Imitrex) 50 mg PO UD PRN PRN Reason: Migraine Headache Stop: 12/15/18 22:15 Warfarin Sodium (Coumadin) 1.5 mg PO [id number]@1600 [facility] Stop: 12/15/18 22:15 Last Admin: 11/18/18 15:32 Dose: 1.5 mg Documented by: Warfarin Sodium (Coumadin) 3 mg PO [id number]@1600 [facility] Stop: 12/17/18 15:59 Last Admin: 11/17/18 15:31 Dose: 3 mg Documented by: (1) Crohn's disease Digestive disease complication type: with abscess Gastrointestinal tract location: small intestine Qualified Code(s): K50.014 - Crohn's disease of small intestine with abscess
[2018-11-19] MEDS: WARFARIN SOD 3 MG TAB PO SCH (16:18)
[2018-11-19] MEDS: DICYCLOMINE HCL 10 MG CAP PO PRN (16:21)
[2018-11-19] MEDS: ERTAPENEM SODIUM 1,000 MG in SODIUM CHLORIDE 0.9% 50 ML IV SCH (18:44)
[2018-11-19] MEDS: HYDROmorphone INJ 0.5 MG/0.5 ML SYR IV PRN (19:51)
[2018-11-19] MEDS: QUETIAPINE FUMARATE 200 MG TAB PO SCH (20:54)
[2018-11-19] MEDS: GABAPENTIN 300 MG CAP PO SCH (20:54)
[2018-11-19] MEDS: OXYCODONE HCL IR 5 MG TAB (IMMEDIATE RELEASE) PO PRN (21:03)
--- NOTE | 2018-11-19 22:52 | XRay Report ---
XR chest 1V portable CLINICAL HISTORY: Cough. COMPARISON STUDY: Chest radiograph and chest CT November 02, 2018. FINDINGS: Emphysema is noted. A small left pleural effusion has developed. There is mild left basilar opacity. Right lung is clear. Cardiac size is normal. There is no evidence for pulmonary edema. IMPRESSION: 1. Interval development of a small left pleural effusion. 2. Left basilar opacity which may reflect pneumonia or atelectasis. Radiographic follow up to ensure resolution is recommended. 3. Emphysema. Electronically signed by: Jimmy Macias M.D. 11/19/2018 10:51 PM
[2018-11-20] MEDS: HYDROmorphone INJ 0.5 MG/0.5 ML SYR IV PRN ×3 (00:05→10:47)
[2018-11-20] MEDS: guaiFENesin SUGAR FREE 100 MG/5 ML UDC PO PRN ×2 (00:26→08:45)
[2018-11-20 07:06] LABS: Hematocrit (blood only) 29.4 % (37-47); Hemoglobin 9.5 g/dL (12.0-16.0); Mean Corpuscular Hemoglobin 26.9 pg (25-34); Mean Corpuscular Hgb Conc 32.3 g/dL (32-36); Mean Corpuscular Volume 83.3 fL (80-100); Mean Platelet Volume 9.2 fL (7.4-10.4); Platelet Count 342 K/uL (130-400); RDW Coefficient of Variation 13.9 % (11.5-14.5); RDW Standard Deviation 41.8 fL (36.4-46.3); Red Blood Count 3.53 M/uL (4.2-5.4); White Blood Count 7.63 K/uL (4.8-10.8)
[2018-11-20 07:19] LABS: INR 1.4 (0.9-1.1); Prothrombin Time 14.1 Seconds (9.0-12.0)
[2018-11-20 07:44] LABS: BUN Creatinine Ratio 12.9 (10-20); Calcium 7.5 mg/dl (8.5-10.1); Creatinine Clr Calc Pharmacy 95.2 ml/min; Est GFR (African American) 142.2; Est GFR (Non-African American) 122.7; Potassium 3.3 mmol/L (3.5-5.1)
[2018-11-20] MEDS: MULTIVITAMIN TAB PO SCH (08:42)
[2018-11-20] MEDS: MESALAMINE 400 MG CAPDR PO SCH ×3 (08:42→20:21)
[2018-11-20] MEDS: ESCITALOPRAM OXALATE 10 MG TAB PO SCH (08:43)
[2018-11-20] MEDS: MIRTAZAPINE TAB 15 MG TAB PO SCH (08:43)
[2018-11-20] MEDS: QUETIAPINE FUMARATE 25 MG TABLET PO SCH ×2 (08:43→20:21)
[2018-11-20] MEDS: FLINTSTONES COMPLETE CHEWABLE TAB PO SCH (08:44)
[2018-11-20] MEDS: OXYCODONE HCL IR 5 MG TAB (IMMEDIATE RELEASE) PO PRN ×3 (08:52→23:35)
[2018-11-20] MEDS: POTASSIUM CHLORIDE 20 MEQ TABCR PO SCH ×2 (11:36→15:45)
[2018-11-20] MEDS: CALCIUM 600MG + VIT D 400 IU TAB PO SCH ×2 (11:37→20:21)
--- NOTE | 2018-11-20 14:30 | Hospitalist Progress Note ---
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 Cont IV ertapenem x 21 days. Consented for PICC but us-guided line was placed instead as unable to receive PICC. Clinically, she is improved and eating. Will need to follow-up with regular GI providers to reinitiate biologic therapy. Still with pain as above. Stopped Dilaudid after 3 days use and pushed oral pain control options. Pt unwilling as above but nursing staff is continuing to work with her and encourage this option. (2) Myositis: IV ertapenem 2/2 infection with good response and multiple antibiotic allergies. (3) Crohn's disease: History of Crohn's disease status post right hemicolectomy status post ileostomy, admitted with severe abdominal pain Normal white count no evidence of sepsis:, Given prior history of multiple surgery and complex inflammatory bowel disease/high risk for poor healing/infection post surgery or procedure Conservative management would be appropriate-plan as above. Diet slowly advanced, per GI (4) History of hemicolectomy: Secondary to inflammatory bowel disease, Crohn's colitis (5) Ileostomy in place: Having normal output through ileostomy Stool for C. difficile toxin assay negative Excoriated skin under taped area around ostomy site. Requested wound care nurse to evaluate and make recommendations. (6) Anemia: Acute, likely related to dilution from IVF administration this admission and frequent plebotomy. Will follow, No overt bleeding or need for transfusion at this time. (7) History of pulmonary embolism: Reports new diagnosis of first time PE/DVT August 2018 (report unavailable). As os October CTA scan, PE was resolved, however, cont warfarin to complete full treatment course. INR daily. Provide heparin for DVT prophylaxis until she is therapeutic on her warfarin. (8) Smoking: Counseled on the heightened risk of smoking with Chron's disease, and she is adamant about continuing to smoke despite this. (9) DVT prophylaxis: warfarin/heparin full code dispo-to home when medically stable, pain well controlled. Madhavi Oviedo DO [facility] Hospitalist Subjective Pt reports persistent abdominal pain overnight. She has continued to use narcotics overnight. We again discussed that she cannot go home on IV pain medications, and she expressed to me that she would like to go home soon but shrugged her shoulders when I asked her when. She was consented for PICC line in preparation for IV ertapenem at home. I addressed her concerns brought up by service excellence to me this morning. It appears she is mixing some of our conversations with other staff conversations including the fact that she has a history of animal feces in her house which was so bad that a home health company declined to provide care after a recent admission. However, we never spoke about this yesterday, and I did not know she had animals. [facility] Additionally I attempted to clarify her codeine allergy which includes an notation in the chart that morphine is okay to take and that she has Lortab at home. It is my understanding the patient is opiate lisset, and she agreed with this. PDMP does not reflect narcotic prescription activity. However, she could not understand that Lortab was hydrocodone, not codeine. And she could not elucidate for me if she had a history of allergies to hydrocodone. She kept going back to the allergy to codeine. Although these are medical terms she is likely not familiar with, I am concerned for intermittent confusion related to narcotic use especially given the patient's low body weight and opiate naive status. I am concerned about a chemical dependency outside of what would be needed to achieve reasonable pain control given that she would take an oxycodone and repo rt to the nurse it "wasn't working" after only a few minutes time per nursing reports, and that she reports to me "nothing else will work for my pain." She is stable with no evidence of fever, hypertension or discomfort. Although she reports pain which is likely very real, her expectation of pain relief appear to be unrealistic. For all of these reasons, I am stopping the quick acting Dilaudid IV and moving to oral medication for pain control including oxycodone. I was notified by the nursing staff that she was outraged about the dilaudid discontinuation and gave grief about trying any alternatives to treat her pain including scheduled tylenol and a one time dose of torado. In fact, her called and was screaming at the staff on multiple phone calls regarding the stoppage of her IV Dilaudid. He even told her nurse she had a Tylenol "allergy" which is not in her chart, and she has had several doses of Tylenol this admission without any issues. This all reinforced my concern that there was a possible substance abuse issue going on, especially when her began threatening staff with legal action if we didn't add this medication back to her regimen. The patient ultimately took the tylenol and Toradol and continues on the oxycodone. I did discuss with the patient that I think she might do better with another provider and she agreed replying to me angrily to "get out." Review of Systems Review of Systems: All systems reviewed & are unremarkable except as noted in HPI & below Physical Exam Physical Exam: CONSTITUTIONAL: thin, vitals as above, generally well- appearing, flat affect, at times appears to be overmedicated with difficulty articulating words but then correcting herself. EYES: normal conjunctivae, no scleral icterus ENT: MMM RESPIRATORY: clear to auscultation bilaterally, no crackles, rales or wheezes, normal respiratory effort CARDIOVASCULAR: regular rate and rhythm, S1 and 2 heard without murmurs, gallops or rubs, no JVD, no peripheral edema GASTROINTESTINAL: normal bowel sounds, soft, TTP in RLQ and LLQ, no guarding MUSCULOSKELETAL: strength 5/5 throughout, head is normocephalic and atraumatic SKIN: warm and dry, ileostomy site with normal stool output and normal appearing ostomy. Tape is holding ostomy with direct skin contact and excoriation/erythema of skin noted under the taped area NEUROLOGIC: CN 2-12 grossly intact, no gross focal deficits. Results & Data Vital Signs (Past 12 Hours) Vital Signs Temp Pulse Resp BP BP Pulse Ox 11/20/18 08:48 81 107/61 11/20/18 07:46 37.0 C 83 20 96/60 L 90 11/20/18 06:22 92 H 105/63 Laboratory Results Short CBC 11/20/18 Range/Units 06:17 WBC 7.63 (4.8-10.8) K/uL Hgb 9.5 L (12.0-16.0) g/dL Hct 29.4 L (37-47) % Plt Count 342 (130-400) K/uL BMP 11/20/18 06:17 Sodium 137 Potassium 3.3 L Chloride 101 Carbon Dioxide 30 BUN 6 L Creatinine 0.48 L Glucose 77 Calcium 7.5 L Medications Administered Short CBC 11/20/18 Range/Units 06:17 WBC 7.63 (4.8-10.8) K/uL Hgb 9.5 L (12.0-16.0) g/dL Hct 29.4 L (37-47) % Plt Count 342 (130-400) K/uL BMP 11/20/18 06:17 Sodium 137 Potassium 3.3 L Chloride 101 Carbon Dioxide 30 BUN 6 L Creatinine 0.48 L Glucose 77 Calcium 7.5 L (1) Crohn's disease Digestive disease complication type: with abscess Gastrointestinal tract location: small intestine Qualified Code(s): K50.014 - Crohn's disease of small intestine with abscess
[2018-11-20] MEDS: WARFARIN SOD 3 MG TAB PO SCH (15:44)
[2018-11-20] MEDS: ACETAMINOPHEN 325 MG TAB PO SCH (17:45)
[2018-11-20] MEDS ORDERED: ACETAMINOPHEN 325 MG TAB PO SCH (18:00)
[2018-11-20] MEDS ORDERED: KETOROLAC TROMETHAMINE 15 MG/ML VIAL IV ONE (18:35)
[2018-11-20] MEDS: ERTAPENEM SODIUM 1,000 MG in SODIUM CHLORIDE 0.9% 50 ML IV SCH (19:09)
[2018-11-20] MEDS: ONDANSETRON INJ 2 MG/ML 2 ML VIAL IV PRN (19:58)
[2018-11-20] MEDS: GABAPENTIN 300 MG CAP PO SCH (20:21)
[2018-11-20] MEDS: QUETIAPINE FUMARATE 200 MG TAB PO SCH (20:21)
[2018-11-20] MEDS: HEPARIN SOD 5,000 UNIT/0.5 ML VIAL SQ SCH (21:28)
[2018-11-21] MEDS: ACETAMINOPHEN 325 MG TAB PO SCH ×3 (01:32→18:03)
[2018-11-21] MEDS: HEPARIN SOD 5,000 UNIT/0.5 ML VIAL SQ SCH ×2 (06:24→15:02)
[2018-11-21 06:30] LABS: Hematocrit (blood only) 29.2 % (37-47); Hemoglobin 9.5 g/dL (12.0-16.0); Mean Corpuscular Hemoglobin 27.1 pg (25-34); Mean Corpuscular Hgb Conc 32.5 g/dL (32-36); Mean Corpuscular Volume 83.4 fL (80-100); Mean Platelet Volume 9.1 fL (7.4-10.4); Platelet Count 261 K/uL (130-400); RDW Standard Deviation 42.5 fL (36.4-46.3); White Blood Count 9.84 K/uL (4.8-10.8)
[2018-11-21 06:53] LABS: BUN Creatinine Ratio 18.4 (10-20); Calcium 7.9 mg/dl (8.5-10.1); Creatinine Clr Calc Pharmacy 80.2 ml/min; Est GFR (African American) 134.4; Potassium 4.2 mmol/L (3.5-5.1)
[2018-11-21] MEDS: ONDANSETRON INJ 2 MG/ML 2 ML VIAL IV PRN (08:27)
[2018-11-21] MEDS: FLINTSTONES COMPLETE CHEWABLE TAB PO SCH (08:30)
[2018-11-21] MEDS: CALCIUM 600MG + VIT D 400 IU TAB PO SCH (08:30)
[2018-11-21] MEDS: MESALAMINE 400 MG CAPDR PO SCH ×2 (08:31→15:04)
[2018-11-21] MEDS: MIRTAZAPINE TAB 15 MG TAB PO SCH (08:31)
[2018-11-21] MEDS: QUETIAPINE FUMARATE 25 MG TABLET PO SCH (08:32)
[2018-11-21] MEDS: MULTIVITAMIN TAB PO SCH (08:32)
[2018-11-21] MEDS: ESCITALOPRAM OXALATE 10 MG TAB PO SCH (08:32)
--- NOTE | 2018-11-21 13:40 | Hospitalist Progress Note ---
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 Will need IV Ertapenem for a total of 21 days course Pain control with oral narcotic Check cbc, cmp weekly while on IV Ertapenem therapy. (2) Myositis: IV ertapenem 2/2 infection with good response and multiple antibiotic allergies. (3) Crohn's disease: History of Crohn's disease status post right hemicolectomy status post ileostomy, admitted with severe abdominal pain Normal white count no evidence of sepsis:, Given prior history of multiple surgery and complex inflammatory bowel disease/high risk for poor healing/infection post surgery or procedure Conservative management would be appropriate Will need to follow with GI outpatient F/U with Colorectal surgery for setons, fistula management (4) History of hemicolectomy: Secondary to inflammatory bowel disease, Crohn's colitis (5) Ileostomy in place: Having normal output through ileostomy Stool for C. difficile toxin assay negative Excoriated skin under taped area around ostomy site. R Follow up with wound nurse (6) Anemia: hgb stable No sign of bleeding Monitor CBC (7) History of pulmonary embolism: Reports new diagnosis of first time PE/DVT August 2018 (report unavailable). As os October CTA scan, PE was resolved, however, cont warfarin to complete full treatment course. Continue coumadin for now Follow up with the coag clinic (8) Smoking: Counseled on the heightened risk of smoking with Chron's disease, and she is adamant about continuing to smoke despite this. (9) DVT prophylaxis: warfarin/heparin full code Disposition Discharge home today Subjective Pt was seen and examined Lying in bed with no distress Pt said that she in not having any pain currently She said that she tolerates her diet Denies any chest pain, palpitation, dizziness and SOB Physical Exam Physical Exam: General- No acute distress, frail Head- atraumatic Eyes- PERRL, EOMI, ENT- oropharynx clear Neck- supple, no JVD Lungs- clear to auscultation Heart- regular rhythm; no murmur Abdomen- normal bowel sounds, soft, ileostomy site with normal stool output and normal appearing ostomy. Extremities- no calf tenderness Neuro- alert, oriented x 3; PERRL, EOMI; no facial palsy; no dysarthria Skin- warm & dry, Tape is holding ostomy with direct skin contact and excoriation/erythema of skin noted under the taped area Results & Data Vital Signs (Past 12 Hours) Vital Signs Temp Pulse Resp BP BP Pulse Ox 11/21/18 12:56 36.9 C 104 H 18 94/65 L 95/63 L 90 11/21/18 07:57 104 H 11/21/18 07:52 36.9 C 18 94/65 L 90 (1) Crohn's disease Digestive disease complication type: with abscess Gastrointestinal tract location: small intestine Qualified Code(s): K50.014 - Crohn's disease of small intestine with abscess
[2018-11-21] MEDS: ERTAPENEM SODIUM 1,000 MG in SODIUM CHLORIDE 0.9% 50 ML IV SCH (13:55)
[2018-11-21] MEDS: WARFARIN SOD 3 MG TAB PO SCH (15:36)
--- NOTE | 2018-11-21 15:48 | Discharge Summary ---
Date of Service November 21, 2018 Admission HPI Per Admitting Provider HISTORY OF PRESENT ILLNESS: This is a 38-year-old female with past medical history significant for history of fistulizing ileocolonic Crohn's disease, status post right hemicolectomy in 2008 and subsequent subtotal colectomy with ileostomy in 2013, severe COPD, bipolar disorder, tobacco use disorder, migraines, hypertension, history of renal calculi, recent history of PE, on Coumadin. The patient used to be on Remicade, but not taking Remicade since last April because of transport issues. She was here on 09/23/2018, at that time found to have progression of rectovaginal fistula and also phlegmon adjacent to distal ileum. Was on Rocephin and later treated with Augmentin and also she was again admitted on 09/27/2018, at that time with a diagnosis of PE, discharged on Coumadin, and she has followup appointment recently with GI and they plan to start on Inflectra 5 mg per kg ,per patient coming Saturday. She is on currently mesalamine 1600 mg t.i.d. She is also seen by Psych and also GI nutrition. GI nutrition recommended home TPN, but they are concerned about her home social situation and hygiene putting her at risk for sepsis. The patient today comes here because of abdominal pain that started today and also has fever at home. Denies any drainage around the ileostomy site. She has chronic dermatitis at the ileostomy site and lower abdomen and dry skin, following with dermatology. Denies any discharge from anywhere. Has some dizziness, headache, no blurred vision, no sore throat. Appetite is okay. She says she is eating regular food and she states that since last admission her weight is same, but not gaining any more weight. Denies any chest pain. Has chronic cough, once in a while she brings up some mucus. No nausea, no vomiting, no hematuria, no burning micturitions. She is moving her bowels normally and no blood in the stools, no diarrhea. No swelling in the legs, no rash. She says she is ambulating without any help. Lives with her . She takes help for ride with her appointments. Currently resting comfortably and hemodynamically stable. ER talked with GI and they recommended antibiotics Invanz and going to be evaluated in the a.m. We will keep the patient on clear liquid diet for now and n.p.o. after midnight for any further procedures. Admission Exam Per Admitting Provider GENERAL: The patient is very thin and frail, not in acute distress. VITAL SIGNS: Temperature 37.5, pulse 68, respiratory rate 18, blood pressure 87/61, oxygen 95% on room air. HEENT: No pallor, no icterus. Pupils equal, round, reactive to light. NECK: No JVD, no masses, no carotid bruit. CARDIOVASCULAR: S1, S2 heard, regular rate and rhythm, no murmur, no gallop. RESPIRATORY SYSTEM: Normal AP diameter. No accessory muscle use. No wheezing, no crackles. ABDOMEN: Soft, bowel sounds present. Mild discomfort. Ileostomy bag seen. Chronic skin changes with mild erythematous changes around the ileostomy bag. No drainage seen. EXTREMITIES: No edema, no erythema. Principal Diagnosis Small bowel fistula Myositis Crohn's disease Anemia Ileostomy in place History of Pulmonary embolism Discharge Exam General- No acute distress, frail Head- atraumatic Eyes- PERRL, EOMI, ENT- oropharynx clear Neck- supple, no JVD Lungs- clear to auscultation Heart- regular rhythm; no murmur Abdomen- normal bowel sounds, soft, ileostomy site with normal stool output and normal appearing ostomy. Extremities- no calf tenderness Neuro- alert, oriented x 3; PERRL, EOMI; no facial palsy; no dysarthria Skin- warm & dry, Tape is holding ostomy with direct skin contact and excoriation/erythema of skin noted under the taped area Discharge Data Allergies Allergy/AdvReac Type Severity Reaction Status Date / Time codeine Allergy Severe SOB, Verified 11/02/18 01:50 NAUSEA -- MORPHINE OK, TAKES LORTAB AT HOME metronidazole Allergy Severe chest pain Verified 11/02/18 01:50 Cipro Allergy Unknown "I GET Verified 04/20/15 21:21 SICK AND CAN'T BREATHE RIGHT." ciprofloxacin Allergy Unknown "I GET Verified 11/02/18 01:50 SICK AND CAN'T BREATHE RIGHT." latex Allergy Unknown RASH Verified 11/02/18 01:50 Penicillins Allergy Unknown CHEST Unverified 11/02/18 01:50 TIGHTNESS prednisone AdvReac Intermediate Nausea Unverified 11/02/18 01:50 aspirin AdvReac Mild GI DISTRESS Verified 11/02/18 01:50 tramadol AdvReac Chest Unverified 11/15/18 17:11 Pain, N/V IRON INFUSIONS Allergy Unknown Chest Uncoded 11/02/18 01:50 tightness and SOB. Consultations 11/15/18 19:13 ED Decision to Admit Stat 11/15/18 22:16 Consult Case Management - Discharge Planning Routine 11/16/18 08:00 Consult Gastroenterology Routine 11/18/18 14:16 Consult Infectious Diseases Routine 11/19/18 18:25 Consult Patient Rep / Service Excellence [Consult Patient Services] Routine Ordered Studies 11/15/18 15:07 CT abd pelvis oral and IV con Stat XR chest 1V portable CLINICAL HISTORY: Cough. COMPARISON STUDY: Chest radiograph and chest CT November 02, 2018. FINDINGS: Emphysema is noted. A small left pleural effusion has developed. There is mild left basilar opacity. Right lung is clear. Cardiac size is normal. There is no evidence for pulmonary edema. IMPRESSION: 1. Interval development of a small left pleural effusion. 2. Left basilar opacity which may reflect pneumonia or atelectasis. Radiographic follow up to ensure resolution is recommended. 3. Emphysema. Electronically signed by: Jimmy Macias M.D. 11/19/2018 10:51 PM Dictated: 11/19/[id number] Transcribed: 11/19/182247 ABDOMEN [address] PELVIS CT WITH IV AND ORAL CONTRAST CT DOSE: 253.75 mGy.cm HISTORY: Acute right lower quadrant abdominal pain with fever and history of Crohn's disease RLQ pain, ileostomy, chron's, fever. TECHNIQUE: Multiaxial CT images of the abdomen and pelvis were performed following the use of intravenous and oral contrast. A dose lowering technique was utilized adhering to the principles of ALARA. COMPARISON STUDY: CT abdomen and pelvis 11/02/2018 FINDINGS: Hyperinflation with emphysema and mild right basilar bronchial wall thickening suggestive of bronchitis. There is no pneumatosis or pneumoperitoneum. Imaged inferior cardiac chambers are unremarkable. The liver again appears enlarged in size. Patency of the hepatic and portal veins. Spleen measures the upper limits of normal. Pancreas, gallbladder and adrenal glands appear unremarkable. 4 mm cyst of the inferior pole left kidney. No renal or ureteral calculi or obstructive uropathy. Urinary bladder, uterus and adnexa appear unremarkable. Possible soft tissue defect within the region of the vagina appears unchanged. Postoperative changes from subtotal colectomy with right mid abdominal colostomy redemonstrated. No small bowel obstruction. Temperature probe within the rectum redemonstrated. Adenopathy of the abdominal right lower quadrant measures up to 1.3 x 2.2 cm. There is a stellate-shaped fistula within the right midabdomen redemonstrated with surrounding mucosal hyperemia. Is appears to connect an adjacent loop of small bowel with the colostomy. Peripherally enhancing sinus tract extends into the abdominal wall right rectus sheath musculature with air and air, fluid and contrast noted within this distribution on image 192 series 3. Asymmetric enlargement with inflammation of the right rectus sheath. Inflammatory stranding with mild free fluid is noted surrounding the sinus tracts. Mild mucosal hyperemia of the colostomy. The corrected redemonstrated. Bones appear to be intact. IMPRESSION: 1. Postoperative changes from prior subtotal colectomy with right mid abdominal colostomy. Hyperenhancement of the colostomy redemonstrated suggestive of active inflammation. 2. Peripheral enhancement of an irregular multidirectional fistula with adjacent sinus tracts noted adjacent to the colostomy with extension to an adjacent loop of small bowel. Additionally, there is new extension and involvement of sinus tracts into the right rectus sheath which demonstrates associated myositis and phlegmonous change. No drainable fluid collection. 3. Right lower quadrant adenopathy, likely on a reactive basis. 4. Reactive mesenteric stranding with trace free fluid of the abdominal right lower quadrant. 5. No bowel obstruction. 6. Additional findings as above. Electronically signed by: Slick Diaz M.D. 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 Will need IV Ertapenem for a total of 21 days course Pain control with oral narcotic Check cbc, cmp weekly while on IV Ertapenem therapy. (2) Myositis: IV ertapenem 2/2 infection with good response and multiple antibiotic allergies. (3) Crohn's disease: History of Crohn's disease status post right hemicolectomy status post ileostomy, admitted with severe abdominal pain Normal white count no evidence of sepsis:, Given prior history of multiple surgery and complex inflammatory bowel disease/high risk for poor healing/infection post surgery or procedure Conservative management would be appropriate Will need to follow with GI outpatient F/U with Colorectal surgery for setons, fistula management (4) History of hemicolectomy: Secondary to inflammatory bowel disease, Crohn's colitis (5) Ileostomy in place: Having normal output through ileostomy Stool for C. difficile toxin assay negative Excoriated skin under taped area around ostomy site. R Follow up with wound nurse (6) Anemia: hgb stable No sign of bleeding Monitor CBC (7) History of pulmonary embolism: Reports new diagnosis of first time PE/DVT August 2018 (report unavailable). As os October CTA scan, PE was resolved, however, cont warfarin to complete full treatment course. Continue coumadin for now Follow up with the coag clinic (8) Smoking: Counseled on the heightened risk of smoking with Chron's disease, and she is adamant about continuing to smoke despite this. (9) DVT prophylaxis: warfarin/heparin full code Disposition Discharge home today Total Time Total Time Spent Total Time Spent (In Minutes): 35 minutes Total Time Includes: Examination of the Patient, Discharge Planning, Medication Reconciliation, Communication With Other Providers and Other Discharge Plan Discharge Items Patient Disposition: Home - Home Health Services Reason For Visit: ABDOMINAL PAIN Discharge Diagnosis: Small bowel fistula Myositis Crohn's disease Anemia Ileostomy in place History of Pulmonary embolism Discharge Goals: Decrease discomfort Activity: Resume your previous activity Activity Comment: as tolerated Non-emergency contact: Primary Care Provider and American Sign Language Interpreter Call non-emergency contact if: you have any medication questions and your temperature is above 101 Follow-up/Referrals: Kathy Stoddard, [Primary Care Provider] - Diet: Low Fiber Addtl Provider Instructions: discharge home with home health services Follow up with your primary care provider Dr. Easton on 11/25 @ 8:45 AM Follow up with gastroenterology (please call for the appointment) Follow up with the coumadin clinic to monitor PT/INR (Check PT/INR tomorrow) Continue outpatient infusion with Invanz Check cbc, cmp weekly while on IV Ertapenem therapy. Continue wound care around the ostomy site (Follow up with wound care nurse) Do not drive or operate any machine while on oxycodone Please hold next dose of oxycodone if you become drowsy and lethargy Prescriptions: New ertapenem [Invanz] 1 gram recon soln 1 gm IV DAILY Qty: 15 RF: 0 guaifenesin 200 mg tablet 200 mg PO TID PRN (Reason: congestion/cough) Qty: 15 RF: 0 oxycodone 5 mg Tablet 5 mg PO Q12H PRN (Reason: pain) Qty: 8 RF: 0 Continued quetiapine 25 mg tablet 25 mg PO BID RF: 0 quetiapine 200 mg tablet 200 mg PO HS RF: 0 sumatriptan succinate 50 mg tablet 50 mg PO UD PRN (Reason: Migraine Headache) RF: 0 gabapentin 300 mg capsule 300 mg PO HS RF: 0 albuterol sulfate [Ventolin HFA] 90 mcg/actuation HFA aerosol inhaler 2 puff inhalation Q4 PRN (Reason: cough,sob,wheezing) RF: 0 Flintstones Gummies Tablet,Chewable 1 tab PO QAM RF: 0 atenolol 25 mg tablet 12.5 mg PO QAM Qty: 0 RF: 0 warfarin [Coumadin] 3 mg Tablet 1.5 mg PO 4XWK RF: 0 multivitamin Tablet 1 tab PO DAILY RF: 0 celecoxib 100 mg Capsule 100 mg PO DAILY RF: 0 Breo Ellipta 100-25 mcg/dose Blister With Device 1 inh INHALATION DAILY RF: 0 umeclidinium 62.5 mcg/actuation Blister With Device 1 inh INHALATION DAILY RF: 0 mesalamine 400 mg Capsule (With Del Rel Tablets) 1,600 mg PO TID RF: 0 Remicade 100 mg Recon Soln 100 mg IV Q8WK RF: 0 dicyclomine 10 mg capsule 10 mg PO BID PRN (Reason: Abdominal Pain) RF: 0 escitalopram oxalate 10 mg tablet 10 mg PO DAILY RF: 0 warfarin 3 mg Tablet 3 mg PO 3XWK RF: 0 mirtazapine [Remeron] 15 mg Tablet 7.5 mg PO DAILY RF: 0 prazosin 2 mg 2 mg PO HS RF: 0 Stand-Alone Forms: Call Back Authorization, [facility] Discharge Orders: Discharge Order (Routine); Ordered 11/21/18 Ordered By: Sergio Rea Admission Data Admit Date/Time: 11/15/18 20:54 Attending Provider: Sergio Rea Admit Provider: Jaime Negron Primary Care Provider: Kathy Stoddard Other Providers: Jaime Negron ; Tiburcio Crain ; Valeri Connor Service: Medical Other Interventions: Discharge Summary Assessment (RN) Last Done: 11/21/18 15:44
== END 2018-11-21 17:15 | disposition home health service (06) | DRG 386 ==
LOC: ED 14:35 → 2N 20:54 → SUATTDRO 20:54 → 2N 21:30

== ENCOUNTER 2018-11-27 06:20 | Inpatient (IN) ==
[2018-11-27] MEDS ORDERED: ONDANSETRON INJ 2 MG/ML 2 ML VIAL IV STA (06:43)
[2018-11-27] MEDS ORDERED: HYDROmorphone INJ 0.5 MG/0.5 ML SYR IV STA (06:43)
[2018-11-27] MEDS ORDERED: SODIUM CHLORIDE 0.9% 1000ML 1,000 ML IV ONE (06:43)
--- NOTE | 2018-11-27 07:25 | Emergency Department Note ---
Entered by Toby Feng acting as a scribe for History of Present Illness General Chief complaint: Abdominal Pain Stated complaint: ABDOMINAL PAIN/CHEST PAIN Time Seen by Provider: 11/27/18 06:33 Source: patient History of Present Illness Provider complaint: Abdominal pain Onset (ago): day(s) 1 Location: abdomen Radiation: non-radiation Severity: similar to prior episodes Pain Consistency: + intermittent Maximum Pain Intensity: 10 Current Pain Intensity: 10 Relieved By: + none Exacerbated By: + none Associated symptoms: + nausea/vomiting; no fever/chills The patient is a 38 year old female who presents to the Emergency Room with complaints of chronic intermittent right lower quadrant abdominal pain that started to flare up and become constant last night. The patient rates the pain as a 10/10 and notes that it feels like a burning, sharp sensation. The patient states that this pain feels similar to the chronic abdominal pain that she has been experiencing for the past couple of months. The patient adds that on November 15 she was told she had abscesses and fistulas so she had a PICC line inserted for IV antibiotics. After receiving a dose of medication the patient became nauseous and lightheaded so she went to [facility]. The patient denies any fevers or chills. Home Medications Home Medications Medication Instructions Recorded Confirmed Type Warren Rockwell 1 tab PO QAM 09/23/18 11/27/18 History albuterol sulfate [Ventolin HFA] 2 puff INHALATION Q4 PRN 09/23/18 11/27/18 History gabapentin 300 mg PO HS 09/23/18 11/27/18 History quetiapine 25 mg PO BID 09/23/18 11/27/18 History quetiapine 200 mg PO HS 09/23/18 11/27/18 History sumatriptan succinate 50 mg PO UD PRN 09/23/18 11/27/18 History atenolol 12.5 mg PO QAM #0 tab 09/26/18 11/27/18 Rx Breo Ellipta 1 inh INHALATION QAM 11/02/18 11/27/18 History Remicade 100 mg IV Q8WK 11/02/18 11/27/18 History celecoxib 100 mg PO QAM 11/02/18 11/27/18 History dicyclomine 10 mg PO BID PRN 11/02/18 11/27/18 History mesalamine 1,600 mg PO TID 11/02/18 11/27/18 History multivitamin 1 tab PO QAM 11/02/18 11/27/18 History umeclidinium 1 inh INHALATION QAM 11/02/18 11/27/18 History warfarin [Coumadin] 1.5 mg PO SUTUTHSA 11/02/18 11/27/18 History escitalopram oxalate 10 mg PO QAM 11/15/18 11/27/18 History mirtazapine [Remeron] 15 mg PO QAM 11/15/18 11/27/18 History warfarin 3 mg PO MOWEFR 11/15/18 11/27/18 History guaifenesin 200 mg PO TID PRN #15 tab 11/21/18 11/27/18 Rx oxycodone 5 mg PO Q12H PRN #8 tab 11/21/18 11/27/18 Rx prazosin 2 mg PO HS 11/27/18 11/27/18 History Allergies Allergy/AdvReac Type Severity Reaction Status Date / Time codeine Allergy Severe SOB, Verified 11/27/18 07:17 NAUSEA -- MORPHINE OK, TAKES LORTAB AT HOME metronidazole Allergy Severe chest pain Verified 11/27/18 07:17 Cipro Allergy Unknown "I GET Verified 04/20/15 21:21 SICK AND CAN'T BREATHE RIGHT." ciprofloxacin Allergy Unknown "I GET Verified 11/27/18 07:17 SICK AND CAN'T BREATHE RIGHT." latex Allergy Unknown RASH Verified 11/27/18 07:17 Penicillins Allergy Unknown CHEST Unverified 11/27/18 07:17 TIGHTNESS ertapenem [From Invanz] AdvReac Severe Gastrointestinal Unverified 11/27/18 07:17 Upset prednisone AdvReac Intermediate Nausea Unverified 11/27/18 07:17 aspirin AdvReac Mild GI DISTRESS Verified 11/27/18 07:17 tramadol AdvReac Chest Unverified 11/27/18 07:17 Pain, N/V IRON INFUSIONS Allergy Unknown Chest Uncoded 11/27/18 07:17 tightness and SOB. Past Med/Surg History Medical History COPD (chronic obstructive pulmonary disease) Ileostomy in place Hypertension Crohn's disease (Chronic) Family history of heart disease Surgical History History of hemicolectomy Family History Unknown Family history non-contributory Other Family history of heart disease Social History Preferred Language: Greek Communication Ability: Effective Thread Inspector Required: No Beliefs That Will Affect Care: None marital status: Current Living Situation: Spouse Feels Safe at Home: Yes Smoking Status: Current every day smoker Tobacco Type: cigarettes ; Cigarettes Per Day: 12 ; Second Hand Exposure: No ; Hx Alcohol Use: No Hx Substance Use: No Review of Systems See HPI for pertinent positives & negatives. and A total of 10 systems reviewed and were otherwise negative Physical Exam Vital Signs Vital Signs - 24 hr 11/27/18 06:25 11/27/18 06:50 11/27/18 07:47 Temperature 36.9 C Temperature Source Oral Sepsis Recent Fever Within 48 Hours No Sepsis Action Taken by Nursing No Action Required Oxygen Flow Rate - Titration Pulse Oximetry Post Tiitration Pulse Rate 92 H Pulse Rate [Apical] 81 Respiratory Rate 16 21 Respiratory Depth Normal Normal Blood Pressure 108/68 Blood Pressure [Left Arm] 102/75 Blood Pressure Mean 81 Blood Pressure Mean [Left Arm] 84 Pulse Oximetry 95 94 Oxygen Delivery Method Room Air Room Air Nasal Cannula Oxygen Flow Rate 3 11/27/18 07:48 11/27/18 09:15 Temperature Temperature Source Sepsis Recent Fever Within 48 Hours Sepsis Action Taken by Nursing Oxygen Flow Rate - Titration 3 Pulse Oximetry Post Tiitration 94 Pulse Rate Pulse Rate [Apical] 71 Respiratory Rate 20 Respiratory Depth Blood Pressure Blood Pressure [Left Arm] 87/56 L Blood Pressure Mean Blood Pressure Mean [Left Arm] 66 Pulse Oximetry 88 L 99 Oxygen Delivery Method Room Air Nasal Cannula Oxygen Flow Rate 2 CONSTITUTIONAL/VITAL SIGNS: Reviewed / noted above. GENERAL: Non-toxic in appearance. INTEGUMENTARY: Warm, dry, and [place]. HEAD: Normocephalic. EYES: without scleral icterus or trauma. ENT/OROPHARYNX: clear and moist. LYMPHADENOPATHY/NECK: Is supple without lymphadenopathy or meningismus. RESPIRATORY: Lungs clear and equal. CARDIOVASCULAR: Regular rate and rhythm. GI/ABDOMEN: Soft. Tender to the RLQ. Colostomy bag containing liquid noted in the RLQ. Mild redness surrounding the colostomy site with the appearance of contact dermatitis. No organomegaly or pulsatile mass. No rebound or guarding. Normal bowel sounds. EXTREMITIES: Warm and well perfused. BACK: No CVA tenderness. NEUROLOGICAL: Intact without focal deficits. PSYCHIATRIC: normal affect. MUSCULOSKELETAL: Normally developed with good muscle tone. Course 0640: Past medical records reviewed. The patient was evaluated in room B08, and a complete history and physical examination were performed. 0926: I spoke to Dr. Randolph Llanos about the patient's CT results. He stated that the patient's abscess does not need to be drained because it is too small. 0930: I reevaluated the patient and updated her on the results. We also discussed the treatment plan and she agreed. 0946: I spoke to Keyonna Oakes PAC under Dr. José Alvarez, about the patient's case. They are going to accept the patient for further evaluation. Consultations Consultation #1: I spoke to Dr. Randolph Llanos about the patient's CT results. He stated that the patient's abscess does not need to be drained bec ause it is too small. Time: :26 Consultation #2: [facility] Alvarez, about the patient's case. They are going to accept the patient for further evaluation. Time: 09:46 Administered Medications Ioversol (Optiray 320 100ml) 94 ml IV ONCE PRN PRN Reason: Interaction Checking Stop: 12/01/18 08:17 Last Admin: 11/27/18 08:18 Dose: 94 ml Documented by: [id number] Discontinued Medications Heparin Sodium (Beef Lung) (Heparin Sod 10 Unit/Ml Flush) Confirm Administered Dose 5 ml FLUSH .STK-MED ONE Stop: 11/27/18 07:13 Last Admin: 11/27/18 07:17 Dose: 5 ml Documented by: [id number] Hydromorphone HCl (Dilaudid) 0.5 mg IV NOW STA Stop: 11/27/18 06:44 Last Admin: 11/27/18 07:06 Dose: 0.5 mg Documented by: [id number] Sodium Chloride (Nss 1000ml) 1,000 mls @ 999 mls/hr IV .Q1H1M ONE Stop: 11/27/18 07:43 Last Infusion: 11/27/18 08:09 Dose: 0 mls/hr Documented by: [id number] Admin: 11/27/18 07:06 Dose: 999 mls/hr Documented by: [id number] Prochlorperazine (Compazine) 2 mls @ 1 mls/min IV ONE ONE Stop: 11/27/18 08:55 Last Admin: 11/27/18 09:17 Dose: 1 mls/min Documented by: [id number] Ertapenem (Invanz) 10 mls @ 2 mls/min IV NOW STA Stop: 11/27/18 09:38 Last Admin: 11/27/18 09:45 Dose: 2 mls/min Documented by: [id number] Ondansetron HCl (Zofran) 4 mg IV NOW STA Stop: 11/27/18 06:44 Last Admin: 11/27/18 07:04 Dose: 4 mg Documented by: [id number] Medical Decision Making Differential Diagnosis Differential diagnoses includes but is not limited to gastritis, peptic ulcer disease, GERD, gallbladder disease, pancreatitis, small bowel obstruction, acute coronary syndrome, pericarditis, ischemic bowel, irritable bowel disease, irritable bowel syndrome, appendicitis, diverticulitis, malignancy, hernia, urinary tract infection, torsion, perforation, trauma, infectious. Medical Records Attestation: I reviewed the patient's medical records. Home Medications Current Medication List: was personally reviewed by me Laboratory Data Attestation: I reviewed the patient's lab results. Result diagrams: 11/27/18 07:11/27/18 07:19 Lab Results 11/27/18 11/27/18 11/27/18 Range/Units 07:19 07:19 07:19 WBC 14.02 H (4.8-10.8) K/uL RBC 4.04 L (4.2-5.4) M/uL Hgb 10.9 L (12.0-16.0) g/dL Hct 32.6 L (37-47) % MCV 80.7 (80-100) fL MCH 27.0 (25-34) pg MCHC 33.4 (32-36) g/dL RDW Std Deviation 41.9 (36.4-46.3) fL RDW Coeff of Kaylan 14.3 (11.5-14.5) % Plt Count 605 H (130-400) K/uL MPV 8.7 (7.4-10.4) fL Immature Gran % (Auto) 0.2 % Neut % (Auto) 82.4 % Lymph % (Auto) 8.0 % Marshall % (Auto) 7.5 % Eos % (Auto) 1.5 % Baso % (Auto) 0.4 % Immature Gran # (Auto) 0.03 H (0.00-0.02) K/uL Neut # (Auto) 11.55 H (1.4-6.5) K/uL Lymph # (Auto) 1.12 L (1.2-3.4) K/uL Marshall # (Auto) 1.05 H (0.11-0.59) K/uL Eos # (Auto) 0.21 (0-0.5) K/uL Baso # (Auto) 0.06 (0-0.2) K/uL PT 31.9 H (9.0-12.0) Seconds INR 3.4 H (0.9-1.1) Sodium 137 (136-145) mmol/L Potassium 3.9 (3.5-5.1) mmol/L Chloride 104 (98-107) mmol/L Carbon Dioxide 25 (21-32) mmol/L Anion Gap 8.0 (3-11) BUN 14 (7-18) mg/dl Creatinine 0.62 (0.6-1.2) mg/dl Est Cr Clr Drug Dosing 72.2 ml/min Est GFR ( Amer) 130.7 Est GFR (Non-Af Amer) 112.8 BUN/Creatinine Ratio 22.1 H (10-20) Glucose 90 (70-99) mg/dl Calcium 8.2 L (8.5-10.1) mg/dl Total Bilirubin 0.3 (0.2-1) mg/dl AST 12 L (15-37) U/L ALT 8 L (12-78) U/L Alkaline Phosphatase 88 (45-117) U/L Total Protein 7.0 (6.4-8.2) gm/dl Albumin 2.4 L (3.4-5.0) gm/dl Globulin 4.6 H (2.5-4.0) gm/dl Albumin/Globulin Ratio 0.5 L (0.9-2) Lipase 111 (73-393) U/L Imaging Data Radiologist's Impression: Radiology results as stated below per my review and the radiologist's interpretation: XR chest 1V portable HISTORY: Generalized abdominal pain. COMPARISON: Chest 11/19/2018. FINDINGS: The lungs are hyperexpanded with apical predominant emphysematous changes. No focal lung consolidations to suggest pneumonia. No evidence for pulmonary edema. The heart is normal in size. Mild enlargement of the main pulmonary artery consistent with pulmonary arterial hypertension. This remains unchanged. No pleural effusions. No pneumothorax. Mild dextroscoliosis of the thoracic spine. IMPRESSION: No acute process. Electronically signed by: Emeka Dickson M.D. 11/27/2018 7:32 AM ABDOMEN AND PELVIS CT WITH IV CONTRAST CT DOSE: 249.15 mGy.cm HISTORY: Right lower quadrant abdominal pain. TECHNIQUE: Multiaxial CT images of the abdomen and pelvis were performed following the use of intravenous contrast. A dose lowering technique was utilized adhering to the principles of ALARA. COMPARISON STUDY: Abdomen and pelvis CT 11/15/2018. FINDINGS: Emphysema again noted at the lung bases. No pneumoperitoneum. No pn eumatosis. No suspicious lytic are blastic osseous lesions. The liver, gallbladder, adrenal glands, pancreas, and right kidney are unremarkable. There is a punctate stone within the lower pole the left kidney. No hydronephrosis. Normal caliber abdominal aorta. No retroperitoneal lymphadenopathy. The bladder is distended. The uterus and bilateral adnexa are unremarkable. A rectal there are mild are noted. There are again noted postoperative changes consistent with a subtotal colectomy and right lower quadrant ostomy. Mucosal hyperenhancement and thickening within the distal 8 cm of the ileal loop extending to the ostomy site. This results in narrowing of the distal loop within the ostomy site. The long segment of bowel proximal to this ostomy site is mildly dilated and fluid- filled within the right lower quadrant measuring up to 3.2 cm in diameter. Therefore, this favors a partial small bowel obstruction due to the thickening at the ostomy site. 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 The sinus tract also extends into the adjacent right rectus sheath. There is a new 2.5 x 1.6 cm peripheral enhancing fluid collection medial to and connecting to the sinus tracts consistent with abscess. Redemonstration of the focal defect within the posterior wall of the vagina best seen on image 383. This measures 5 mm in diameter. IMPRESSION: 1. Postoperative changes from prior subtotal colectomy with a right lower quadrant ostomy. There is hyperenhancement and thickening at the distal 8 cm of small bowel extending to the ostomy with mild dilatation proximal to the site. Therefore, this favors a partial small bowel obstruction with the transition point at the thickened ostomy site. 2. Redemonstration of the irregular multidirectional fistula within the right lower quadrant adjacent to the ostomy site with sinus tracts seen extending to the right rectus sheath and adjacent loops of small bowel. There has been interval development of a 2.5 x 1.6 cm peripheral enhancing fluid collection medial to and connecting to the sinus tract consistent with an abscess. 3. Additional findings as described above. Electronically signed by: Emeka Dickson M.D. 11/27/2018 8:42 AM Blood Pressure Blood Pressure Findings: Normal blood pressure MDM Narrative This is a 38-year-old female who presents to the ED with a chief complaint of right lower quadrant abdominal pain. The patient states that her pain started last night. She states that is 10 out of 10. The patient has history of Crohn's disease and colostomy in the right lower quadrant. It has been draining liquid stool. The patient also has a history of PE and is on Coumadin for this. The patient has tenderness to the right lower quadrant on palpation. There is a colostomy in place with liquid in the bag. There is some contact dermatitis associated with the dressing overlying the colostomy but there is no evidence of cellulitis or infection. Her vital signs are normal. She is afebrile. She does not appear to be in any distress. White blood cell count is 14,000. INR is 3.4. She is on Coumadin. Complete metabolic panel was unremarkable. Lipase was negative. A CT scan reveals findings suggestive of a possible small bowel obstruction related to some thickening of the ostomy site. 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 There is interval development of a 2.5 x 1.6 cm abscess in that region. The patient was treated with IV Dilaudid, IV Zofran and IV fluids. She was also given IV ertapenem. She is supposed to be getting this IV as an outpatient but her PICC line was removed because it was not working today. The patient also states that the ertapenem causes her to not feel well and she has not been taking it at home. She will be seen by the hospitalist for further inpatient evaluation and care. Impression & Plan Intra-abdominal abscess, Abdominal pain, Nausea Discharge Plan Visit Data Chief Complaint: Abdominal Pain Stated Complaint: ABDOMINAL PAIN/CHEST PAIN ED Provider: Isaiah Redmond Discharge Problem: Intra-abdominal abscess, Abdominal pain, Nausea Patient Disposition: Being Evaluated by Hospitalist Forms Stand Alone Forms: Call Back Authorization, [facility] Prescriptions Prescriptions: No Action quetiapine 25 mg tablet 25 mg PO BID RF: 0 quetiapine 200 mg tablet 200 mg PO HS RF: 0 sumatriptan succinate 50 mg tablet 50 mg PO UD PRN (Reason: Migraine Headache) RF: 0 gabapentin 300 mg capsule 300 mg PO HS RF: 0 albuterol sulfate [Ventolin HFA] 90 mcg/actuation HFA aerosol inhaler 2 puff inhalation Q4 PRN (Reason: cough,sob,wheezing) RF: 0 Flintstones Gummies Tablet,Chewable 1 tab PO QAM RF: 0 atenolol 25 mg tablet 12.5 mg PO QAM Qty: 0 RF: 0 prazosin 2 mg capsule 2 mg PO HS RF: 0 warfarin [Coumadin] 3 mg Tablet 1.5 mg PO SUTUTHSA RF: 0 multivitamin Tablet 1 tab PO QAM RF: 0 celecoxib 100 mg Capsule 100 mg PO QAM RF: 0 Breo Ellipta 100-25 mcg/dose Blister With Device 1 inh INHALATION QAM RF: 0 umeclidinium 62.5 mcg/actuation Blister With Device 1 inh INHALATION QAM RF: 0 mesalamine 400 mg Capsule (With Del Rel Tablets) 1,600 mg PO TID RF: 0 Remicade 100 mg Recon Soln 100 mg IV Q8WK RF: 0 dicyclomine 10 mg capsule 10 mg PO BID PRN (Reason: Abdominal Pain) RF: 0 escitalopram oxalate 10 mg tablet 10 mg PO QAM RF: 0 warfarin 3 mg Tablet 3 mg PO MOWEFR RF: 0 mirtazapine [Remeron] 15 mg Tablet 15 mg PO QAM RF: 0 guaifenesin 200 mg tablet 200 mg PO TID PRN (Reason: congestion/cough) Qty: 15 RF: 0 oxycodone 5 mg Tablet 5 mg PO Q12H PRN (Reason: pain) Qty: 8 RF: 0 Referrals Referrals: Kathy Stoddard DO [Primary Care Provider] - Discharge Problem: Abdominal pain Qualifiers: Abdominal location: right lower quadrant Qualified Code(s): R10.31 - Right lower quadrant pain The scribe's documentation has been prepared under my direction and personally reviewed by me in its entirety. I confirm that the note above accurately reflects all work, treatment, procedures, and medical decision making performed by me.
--- NOTE | 2018-11-27 07:33 | XRay Report ---
XR chest 1V portable HISTORY: Generalized abdominal pain. COMPARISON: Chest 11/19/2018. FINDINGS: The lungs are hyperexpanded with apical predominant emphysematous changes. No focal lung co nsolidations to suggest pneumonia. No evidence for pulmonary edema. The heart is normal in size. Mild enlargement of the main pulmonary artery consistent with pulmonary arterial hypertension. This remai ns unchanged. No pleural effusions. No pneumothorax. Mild dextroscoliosis of the thoracic spine. IMPRESSION: No acute process. Electronically signed by: Emeka Dickson M.D. 11/27/2018 7:32 AM
[2018-11-27 07:45] LABS: Basophils # (auto) 0.06 K/uL (0-0.2); Basophils % (auto) 0.4 %; Eosinophils # (auto) 0.21 K/uL (0-0.5); Eosinophils % (auto) 1.5 %; Hematocrit (blood only) 32.6 % (37-47); Hemoglobin 10.9 g/dL (12.0-16.0); Immature Granulocytes # (auto) 0.03 K/uL (0.00-0.02); Immature Granulocytes % (auto) 0.2 %; Lymphocytes # (auto) 1.12 K/uL (1.2-3.4); Mean Corpuscular Hgb Conc 33.4 g/dL (32-36); Mean Corpuscular Volume 80.7 fL (80-100); Mean Platelet Volume 8.7 fL (7.4-10.4); Monocytes # (auto) 1.05 K/uL (0.11-0.59); Monocytes % (auto) 7.5 %; Neutrophils # (auto) 11.55 K/uL (1.4-6.5); Neutrophils % (auto) 82.4 %; Platelet Count 605 K/uL (130-400); RDW Coefficient of Variation 14.3 % (11.5-14.5); RDW Standard Deviation 41.9 fL (36.4-46.3); Red Blood Count 4.04 M/uL (4.2-5.4); White Blood Count 14.02 K/uL (4.8-10.8)
[2018-11-27 07:55] LABS: INR 3.4 (0.9-1.1); Prothrombin Time 31.9 Seconds (9.0-12.0)
[2018-11-27 08:03] LABS: Albumin Level 2.4 gm/dl (3.4-5.0); BUN Creatinine Ratio 22.1 (10-20); Calcium 8.2 mg/dl (8.5-10.1); Creatinine Clr Calc Pharmacy 72.2 ml/min; Est GFR (African American) 130.7; Est GFR (Non-African American) 112.8; Potassium 3.9 mmol/L (3.5-5.1)
[2018-11-27 08:06] LABS: Albumin Globulin Ratio 0.5 (0.9-2); Bilirubin,Total 0.3 mg/dl (0.2-1); Globulin 4.6 gm/dl (2.5-4.0)
[2018-11-27] MEDS ORDERED: IOVERSOL 100ml IV PRN (08:18)
--- NOTE | 2018-11-27 08:44 | CT Scan Report ---
ABDOMEN AND PELVIS CT WITH IV CONTRAST CT DOSE: 249.15 mGy.cm HISTORY: Right lower quadrant abdominal pain. TECHNIQUE: Multiaxial CT images of the abdomen and pelvis were performed following the use of intrave nous contrast. A dose lowering technique was utilized adhering to the principles of ALARA. COMPARISON STUDY: Abdomen and pelvis CT 11/15/2018. FINDINGS: Emphysema again noted at the lung bases. No pneumoperitoneum. No pneumatosis. No suspicious lytic are blastic osseous lesions. The liver, gallbladder, adrenal glands, pancreas, and right kidne y are unremarkable. There is a punctate stone within the lower pole the left kidney. No hydronephrosi s. Normal caliber abdominal aorta. No retroperitoneal lymphadenopathy. The bladder is distended. The uterus and bilateral adnexa are unremarkable. A rectal there are mild are noted. There are again note d postoperative changes consistent with a subtotal colectomy and right lower quadrant ostomy. Mucosal hyperenhancement and thickening within the distal 8 cm of the ileal loop extending to the ostomy sit e. This results in narrowing of the distal loop within the ostomy site. The long segment of bowel pro ximal to this ostomy site is mildly dilated and fluid-filled within the right lower quadrant measurin g up to 3.2 cm in diameter. Therefore, this favors a partial small bowel obstruction due to the thick ening at the ostomy site. Redemonstration of the irregular multidirectional fistula with adjacent sin us tracts noted extending to the colostomy and adjacent loops of small bowel. The sinus tract also ex tends into the adjacent right rectus sheath. There is a new 2.5 x 1.6 cm peripheral enhancing fluid c ollection medial to and connecting to the sinus tracts consistent with abscess. Redemonstration of th e focal defect within the posterior wall of the vagina best seen on image 383. This measures 5 mm in diameter. IMPRESSION: 1. Postoperative changes from prior subtotal colectomy with a right lower quadrant ostomy. There is h yperenhancement and thickening at the distal 8 cm of small bowel extending to the ostomy with mild di latation proximal to the site. Therefore, this favors a partial small bowel obstruction with the hayward sition point at the thickened ostomy site. 2. Redemonstration of the irregular multidirectional fistula within the right lower quadrant adjacent to the ostomy site with sinus tracts seen extending to the right rectus sheath and adjacent loops of small bowel. There has been interval development of a 2.5 x 1.6 cm peripheral enhancing fluid collec tion medial to and connecting to the sinus tract consistent with an abscess. 3. Additional findings as described above. Electronically signed by: Emeka Dickson M.D. 11/27/2018 8:42 AM
[2018-11-27] MEDS ORDERED: PROCHLORPERAZINE 2 ML IV ONE (08:54)
[2018-11-27] MEDS ORDERED: ERTAPENEM SODIUM 10 ML IV STA (09:34)
--- NOTE | 2018-11-27 10:31 | History & Physical Report ---
Date of Service November 27, 2018 Assessment & Plan (1) Intra-abdominal abscess: This is a 38-year-old female with a PMH of Crohn's disease (s/p R hemicolectomy in 2009, s/p total colectomy with ostomy in 2013), history of PE on Coumadin, COPD, bipolar disorder, HTN, tobacco use disorder and other medical problems listed below who presents with abdominal cramping. 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 Self- removed PICC line -Afebrile today, leukocytosis of 14, electrolytes stable, lactate within normal limits at 0.6 -CT abd/pelvis with interval development of a 2.5 x 1.6 cm peripheral enhancing fluid collection medial to and connecting to the sinus tract consistent with an abscess -Given 1 dose of ertapenem in ED. Discussed antibiotic allergies with pharmacy- plan to proceed with Zosyn -General surgery consult for abscess, partial small bowel obstruction -Routine ID consult -Pain control (2) Crohn's disease: History of Crohn's disease with fistula, (s/p R hemicolectomy in 2009, s/p total colectomy with ostomy in 2013) -Has not been on Remicade since April due to transport issues. Has plans to resume -Continue mesalamine (3) History of pulmonary embolism: Diagnosed with PE in August 2018, on Coumadin -Initial INR 3.4. Will hold evening dose in case need for intervention -Monitor daily INR (4) Chest pain: Right-sided chest wall tenderness, exacerbated by palpation -Atypical in nature, does not appear cardiac -Will order EKG, trend troponin for completeness (5) HTN (hypertension): Blood pressure on lower side since admission -We will plan to continue atenolol with hold parameters (6) COPD (chronic obstructive pulmonary disease): At respiratory baseline. Continue home inhalers Chronic Oxygen Dependency--Uses 2 liters of oxygen PRN (7) Mood disorder: Continue Seroquel, Remeron, Lexapro (8) Tobacco use disorder: Offered nicotine patch, patient denied DVT Ppx: on coumadin Code status: FULL PCP: Richi Dispo: Observation med tele. Plan to return home once medically stable. Patient seen in collaboration with Dr. Kumar. Please see addendum. History of Present Illness Primary Care Provider: Kathy Stoddard, This is a 38-year-old female with a PMH of Crohn's disease (s/p R hemicolectomy in 2008, s/p total colectomy with ostomy in 2013), history of PE on Coumadin, COPD, bipolar disorder, HTN, tobacco use disorder and other medical problems listed below who presents with abdominal cramping. 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 Was discharged with PICC line on November 21. Reportedly took 1 dose of ertapenem after discharge home but felt lightheaded and nauseous so she stopped. Has had cramping pain in RLQ that is constant and not made better with defecation. Went to [facility] for pain and was given dilaudid there with some relief. Home oxycodone has not been relieving pain. Has loose stool in colostomy and has had to empty approximately 4-5 times a day, when at baseline she empties 2-3x/day. Some nausea but no vomiting. Endorses lightheadedness yesterday but none today. Has also had central chest pain that is more painful to palpation and she feels is related to panic attacks. No fever, chills, cough, palpitations, shortness of breath, vomiting or dysuria. Endorses weight loss of 50 pounds in last year. Follows with [facility] and has been off of Remicade treatment since April due to transportation issues. Allergies Allergy/AdvReac Type Severity Reaction Status Date / Time codeine Allergy Severe SOB, Verified 11/27/18 07:17 NAUSEA -- MORPHINE OK, TAKES LORTAB AT HOME metronidazole Allergy Severe chest pain Verified 11/27/18 07:17 Cipro Allergy Unknown "I GET Verified 04/20/15 21:21 SICK AND CAN'T BREATHE RIGHT." ciprofloxacin Allergy Unknown "I GET Verified 11/27/18 07:17 SICK AND CAN'T BREATHE RIGHT." latex Allergy Unknown RASH Verified 11/27/18 07:17 Penicillins Allergy Unknown CHEST Unverified 11/27/18 07:17 TIGHTNESS ertapenem [From Invan[facility]] AdvReac Severe Gastrointestinal Unverified 11/27/18 07:17 Upset prednisone AdvReac Intermediate Nausea Unverified 11/27/18 07:17 aspirin AdvReac Mild GI DISTRESS Verified 11/27/18 07:17 tramadol AdvReac Chest Unverified 11/27/18 07:17 Pain, N/V IRON INFUSIONS Allergy Unknown Chest Uncoded 11/27/18 07:17 tightness and SOB. Home Medications Home Medications Medication Instructions Recorded Confirmed Type Warren Gummies 1 tab PO QAM 09/23/18 11/27/18 History albuterol sulfate [Ventolin HFA] 2 puff INHALATION Q4 PRN 09/23/18 11/27/18 History gabapentin 300 mg PO HS 09/23/18 11/27/18 History quetiapine 25 mg PO BID 09/23/18 11/27/18 History quetiapine 200 mg PO HS 09/23/18 11/27/18 History sumatriptan succinate 50 mg PO UD PRN 09/23/18 11/27/18 History atenolol 12.5 mg PO QAM #0 tab 09/26/18 11/27/18 Rx Breo Ellipta 1 inh INHALATION QAM 11/02/18 11/27/18 History Remicade 100 mg IV Q8WK 11/02/18 11/27/18 History celecoxib 100 mg PO QAM 11/02/18 11/27/18 History dicyclomine 10 mg PO BID PRN 11/02/18 11/27/18 History mesalamine 1,600 mg PO TID 11/02/18 11/27/18 History multivitamin 1 tab PO QAM 11/02/18 11/27/18 History umeclidinium 1 inh INHALATION QAM 11/02/18 11/27/18 History warfarin [Coumadin] 1.5 mg PO SUTUTHSA 11/02/18 11/27/18 History escitalopram oxalate 10 mg PO QAM 11/15/18 11/27/18 History mirtazapine [Remeron] 15 mg PO QAM 11/15/18 11/27/18 History warfarin 3 mg PO MOWEFR 11/15/18 11/27/18 History guaifenesin 200 mg PO TID PRN #15 tab 08/30/19 09/05/19 Rx oxycodone 5 mg PO Q12H PRN #8 tab 11/21/18 11/27/18 Rx prazosin 2 mg PO HS 11/27/18 11/27/18 History Past Med/Surg History Medical History Tobacco use disorder (Chronic) HTN (hypertension) (Chronic) On anticoagulant therapy (Chronic) History of pulmonary embolism (Chronic) COPD (chronic obstructive pulmonary disease) (Chronic) Hypertension (Chronic) Crohn's disease (Chronic) Tobacco use (Chronic) Family history of heart disease (Chronic) Surgical History History of hemicolectomy (Chronic) Ileostomy in place (Chronic) Family History Unknown Family history non-contributory Other Family history of heart disease Social History Preferred Language: Lao Communication Ability: Effective Tube Cutter Required: No Beliefs That Will Affect Care: None marital status: Current Living Situation: Spouse Feels Safe at Home: Yes Smoking Status: Current every day smoker Tobacco Type: cigarettes ; Cigarettes Per Day: 12 ; Second Hand Exposure: No ; Hx Alcohol Use: No Hx Substance Use: No Review of Systems Review of Systems: At least ten systems reviewed and negative except as noted in the HPI. Physical Exam Physical Exam: General Appearance: WD/WN, vitals as above, NAD, appears thin, chronically ill Head: normocephalic, atraumatic Eyes: normal inspection, PERRL, conjunctivae normal, anicteric sclerae ENT: external ear and nose normal, oropharynx normal Neck: trachea midline, no thyromegaly normal visual inspection Respiratory: normal respiratory effort, decreased breath sounds bilaterally, no wheeze, rales, rhonchi. Normal insp/exp effort, no accessory muscle use Cardiovascular: regular rate, rhythm, no murmur, normal peripheral pulses. Vessels: no JVD or carotid bruit Chest: normal inspection of chest. Right chest tender to palpation Abdomen/GI: Decreased bowel sounds, soft, RLQ tenderness to palpation, no guarding, no hepatosplenomegaly, +ostomy, skin irritation around ostomy site Extremities/Musculoskelatal: no cyanosis or clubbing, extremities motor strength 5/5 Neurologic: PERRL, EOMI, accommodation nl, no face palsy, no dysarthria CN's II-XI intact bilaterally and moves all extremities Psychiatric: A+Ox3, anxious mood Skin: no rashes, normal color, warm/dry Results & Data Vital Signs (Past 12 Hours) Vital Signs Temp Pulse Pulse Resp BP BP Pulse Ox 11/27/18 09:15 71 20 87/56 L 99 11/27/18 07:48 88 L 11/27/18 07:47 81 21 102/75 94 11/27/18 06:25 36.9 C 92 H 16 108/68 95 Laboratory Results Short CBC 11/27/18 Range/Units 07:19 WBC 14.02 H (4.8-10.8) K/uL Hgb 10.9 L (12.0-16.0) g/dL Hct 32.6 L (37-47) % Plt Count 605 H (130-400) K/uL BMP 11/27/18 07:19 Sodium 137 Potassium 3.9 Chloride 104 Carbon Dioxide 25 BUN 14 Creatinine 0.62 Glucose 90 Calcium 8.2 L Liver Function 11/27/18 Range/Units 07:19 Total Bilirubin 0.3 (0.2-1) mg/dl AST 12 L (15-37) U/L ALT 8 L (12-78) U/L Alkaline Phosphatase 88 (45-117) U/L Albumin 2.4 L (3.4-5.0) gm/dl Diagnostic Findings CXR: IMPRESSION: No acute process. CT abd/pelvis: IMPRESSION: 1. Postoperative changes from prior subtotal colectomy with a right lower quadrant ostomy. There is hyperenhancement and thickening at the distal 8 cm of small bowel extending to the ostomy with mild dilatation proximal to the site. Therefore, this favors a partial small bowel obstruction with the transition point at the thickened ostomy site. 2. Redemonstration of the irregular multidirectional fistula within the right lower quadrant adjacent to the ostomy site with sinus tracts seen extending to the right rectus sheath and adjacent loops of small bowel. There has been interval development of a 2.5 x 1.6 cm peripheral enhancing fluid collection medial to and connecting to the sinus tract consistent with an abscess. 3. Additional findings as described above. Supervising Physician Co-Signing Physician Notes Patient is a 38-year-old female with history of fistulas and Crohn's disease S/P hemicolectomy then subsequent subtotal colectomy in 2014 with ileostomy creation, COPD on chronic oxygen dependency, bipolar disorder, tobacco use disorder, H/O PE on chronic anticoagulation and other problems presents with history of abdominal cramping, increased ostomy output--nonbloody, clear watery, right-sided sharp chest pain which she attributes to panic attacks, right lower quadrant abdominal pain, intermittent dizziness, nausea but no vomiting. Patient was recently admitted at [facility] and was advised to continue IV ertapenem for 3 weeks for small bowel fistulous disease leading to myositis. Patient states that she could not complete the IV antibiotic course secondary to intolerance. She admits to weight loss of about 50 pounds in last 1 year. Physical Exam: Vitals signs as noted above General Appearance:Thin, frail, chronic ill appearing, no apparent distress Head: normocephalic, Atraumatic Eyes: normal inspection, EOMI Neck: supple, Trachea midline Respiratory/Chest: Decreased breath sounds, CTA, Right chest tender on palpation Cardiovascular: S1, S2, No murmur Abdomen/GI:Soft, RLQ tender, decreased Bowel sounds, +Ostomy, desquamation Extremities/Musculoskelatal:normal inspection, no edema Neurologic/Psych:AAOX3, grossly no focal neurological deficits Skin: normal color, warm Partial small bowel obstruction Intra-abdominal abscess Increased Ostomy Output H/O Crohn's disease S/P hemicolectomy then subsequent subtotal colectomy in 2013 with ileostomy creation N.p.o. for now IV fluids, IV Zosyn Check MRSA screen Consulted general surgery, ID Eventually we may need colorectal surgery evaluation Check stool for C diff Cultures obtained Atypical chest Pain Reproducible on exam Likely due to anxiety Check EKG, Troponin I personally reviewed the record. Patient is interviewed and examined at bedside. Patient's care is coordinated with Keyonna Peralta PA-C. Please refer to the documentation above for details of patient's presentation and for discussion of other issues.
[2018-11-27] MEDS ORDERED: ALBUTEROL HFA 8 GM INHALER INH PRN (12:27)
[2018-11-27] MEDS ORDERED: PIPERACILL/TAZOBAC CONSULT ACTIVE PRN (12:27)
[2018-11-27] MEDS ORDERED: DICYCLOMINE HCL 10 MG CAP PO PRN (12:27)
[2018-11-27] MEDS ORDERED: ONDANSETRON INJ 2 MG/ML 2 ML VIAL IV PRN (12:27)
[2018-11-27] MEDS ORDERED: guaiFENesin 200 MG TAB PO PRN (12:27)
[2018-11-27] MEDS ORDERED: NSS + 20MEQ KCL 20 MEQ/1,000 ML BAG IV SCH (13:00)
[2018-11-27] MEDS ORDERED: PIPERACILLIN/TAZOBACTAM 3.375 GM in DEXTROSE 5% 100 ML IV ONE (13:30)
[2018-11-27] MEDS ORDERED: MESALAMINE 400 MG CAPDR PO SCH (14:00)
--- NOTE | 2018-11-27 14:06 | Infectious Disease Consult ---
Date of Consultation November 27, 2018 Assessment & Plan (1) Intra-abdominal abscess: developed since last ct scan. continue zosyn, may need surgical intervention as developed while on Iv abx. may need transfer, GI following. follow blood culture. likely now not a candidate for home IV abx. History of Present Illness Attending Physician: Tee Herman MD pt recently seen by ID on 11/19 for IBD and concern for infection, consult for po abx as she has several allergies/intolerances to abx. suggested course of Augmentin however patient declined this. She was on Ertapenem at this was continued with plans to continue for 21 days post d/c emperically as blood cultures 11/17 negative. She was d/c on 11/21 with picc line and home IV abx however, according to home care nursing she has not been answering door or phone to coordinate any further care. She presented to ER today with abd pain, she had repeat ct again demonstrating fistula in RLQ and now also with 2.5x1.6cm collection. No labs are available with the exception of lactate which is 0.6. she is afebrile. She was placed on zosyn in ER and remain on this. Per H&P she removed picc on her own at home and was refusing ertapenem. per H&P she stated nausea to be the reason but she had no difficulty on several days of Ertapnem here last week. Blood cultures are penidng, ID is consulted for intolerance to ertapenem. On my exam she is resting comfortably, sleeping and difficult to wake, Upon waking she denies any abd pain, states she is feeling fine. she denies any n/v/d, no gu symptoms. tolerating zosyn well despite pcn allergy - previously reported chest pain. no cp, sob, cough, sanchez. Allergies Allergy/AdvReac Type Severity Reaction Status Date / Time codeine Allergy Severe SOB, Verified 11/27/18 07:17 NAUSEA -- MORPHINE OK, TAKES LORTAB AT HOME metronidazole Allergy Severe chest pain Verified 11/27/18 07:17 Cipro Allergy Unknown "I GET Verified 04/20/15 21:21 SICK AND CAN'T BREATHE RIGHT." ciprofloxacin Allergy Unknown "I GET Verified 11/27/18 07:17 SICK AND CAN'T BREATHE RIGHT." latex Allergy Unknown RASH Verified 11/27/18 07:17 Penicillins Allergy Unknown CHEST Unverified 11/27/18 13:19 TIGHTNESS [facility]] AdvReac Severe Gastrointestinal Unverified 11/27/18 07:17 Upset prednisone AdvReac Intermediate Nausea Unverified 11/27/18 07:17 aspirin AdvReac Mild GI DISTRESS Verified 11/27/18 07:17 tramadol AdvReac Chest Unverified 11/27/18 07:17 Pain, N/V IRON INFUSIONS Allergy Unknown Chest Uncoded 11/27/18 07:17 tightness and SOB. Home Medications Home Medications Medication Instructions Recorded Confirmed Type Flintstones Gummies 1 tab PO QAM 09/23/18 11/27/18 History albuterol sulfate [Ventolin HFA] 2 puff INHALATION Q4 PRN 09/23/18 11/27/18 History gabapentin 300 mg PO HS 09/23/18 11/27/18 History quetiapine 25 mg PO BID 09/23/18 11/27/18 History quetiapine 200 mg PO HS 09/23/18 11/27/18 History sumatriptan succinate 50 mg PO UD PRN 09/23/18 11/27/18 History atenolol 12.5 mg PO QAM #0 tab 09/26/18 11/27/18 Rx Breo Ellipta 1 inh INHALATION QAM 11/02/18 11/27/18 History Remicade 100 mg IV Q8WK 11/02/18 11/27/18 History celecoxib 100 mg PO QAM 11/02/18 11/27/18 History dicyclomine 10 mg PO BID PRN 11/02/18 11/27/18 History mesalamine 1,600 mg PO TID 11/02/18 11/27/18 History multivitamin 1 tab PO QAM 11/02/18 11/27/18 History umeclidinium 1 inh INHALATION QAM 11/02/18 11/27/18 History warfarin [Coumadin] 1.5 mg PO SUTUTHSA 11/02/18 11/27/18 History escitalopram oxalate 10 mg PO QAM 11/15/18 11/27/18 History mirtazapine [Remeron] 15 mg PO QAM 11/15/18 11/27/18 History warfarin 3 mg PO MOWEFR 11/15/18 11/27/18 History guaifenesin 200 mg PO TID PRN #15 tab 11/21/18 11/27/18 Rx oxycodone 5 mg PO Q12H PRN #8 tab 11/21/18 11/27/18 Rx prazosin 2 mg PO HS 11/27/18 11/27/18 History Patient History Medical History Tobacco use disorder (Chronic) HTN (hypertension) (Chronic) On anticoagulant therapy (Chronic) History of pulmonary embolism (Chronic) COPD (chronic obstructive pulmonary disease) (Chronic) Hypertension (Chronic) Crohn's disease (Chronic) Tobacco use (Chronic) Family history of heart disease (Chronic) Surgical History History of hemicolectomy (Chronic) Ileostomy in place (Chronic) Family History Unknown Family history non-contributory Other Family history of heart disease Social History Preferred Language: Indonesian Communication Ability: Effective 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 Beliefs That Will Affect Care: None marital status: Current Living Situation: Spouse Feels Safe at Home: Yes Safety Concerns: Feels Safe At This Time Smoking Status: Current every day smoker Tobacco Type: cigarettes ; Cigarettes Per Day: 12 ; Second Hand Exposure: No ; Hx Alcohol Use: No Hx Substance Use: No Review of Systems Review of Systems: All systems reviewed & are unremarkable except as noted in HPI & below Physical Exam Constitutional: WD/WN, vitals as above + cachectic Eyes: PERRL, conjunctivae normal, anicteric sclerae ENMT: external ear and nose normal, oropharynx normal Neck: normal visual inspection Respiratory: normal respiratory effort, lungs clear to auscultation Cardiovascular: RRR, no murmur, no edema Gastrointestinal (Abdomen): normal bowel sounds, soft, nontender, no hepatosplenomegaly Musculoskeletal: no cyanosis or clubbing, extremities motor strength 5/5 Skin: no rashes, warm and dry Psychiatric: A+Ox3, euthymic affect Results & Data Vital Signs (Past 12 Hours) Vital Signs Temp Pulse Pulse Pulse Resp BP BP 11/27/18 12:18 36.7 C 87 18 93/57 L 11/27/18 11:50 68 18 104/57 L 11/27/18 09:15 71 20 87/56 L 11/27/18 07:48 11/27/18 07:47 81 21 102/75 11/27/18 06:25 36.9 C 92 H 16 108/68 Pulse Ox 11/27/18 12:18 99 11/27/18 11:50 99 11/27/18 09:15 99 11/27/18 07:48 88 L 11/27/18 07:47 94 11/27/18 06:25 95 PG Care Time/CCT Total # of Minutes Spent Total Time Spent with Patient: Total time spent is greater than 50% in coordination of care (as documented) at patient's floor/unit and/or counseling patient:
--- NOTE | 2018-11-27 15:13 | Surgery Consultation ---
Date of Consultation November 27, 2018 Assessment & Plan (1) Intra-abdominal abscess: pt is a 38 year-old female who was admitted to hospital with fistula and intra-abdominal abscess, IMP: S/P colectomy with ileostomy, crohn's disease, fistula with intra-abdominal abscess, plan, recommend to transfer higher level care colorectal surgeon for further dx and treatment, pt agrees with transfer, D/W Hospitalist, History of Present Illness Attending Physician: Tee Herman MD CC: abdominal pain, This is a 38-year-old female with a PMH of Crohn's disease (s/p R hemicolectomy in 2008, s/p total colectomy with ostomy in 2013), history of PE on Coumadin, COPD, bipolar disorder, HTN, tobacco use disorder and other medical problems listed below who presents with abdominal cramping. 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 Was discharged with PICC line on November 21. Reportedly took 1 dose of ertapenem after discharge home but felt lightheaded and nauseous so she stopped. Has had cramping pain in RLQ that is constant and not made better with defecation. Went to [facility] for pain and was given dilaudid there with some relief. Home oxycodone has not been relieving pain. Has loose stool in colostomy and has had to empty approximately 4-5 times a day, when at baseline she empties 2-3x/day. Some nausea but no vomiting. Endorses lightheadedness yesterday but none today. Has also had central chest pain that is more painful to palpation and she feels is related to panic attacks. No fever, chills, cough, palpitations, shortness of breath, vomiting or dysuria. Endorses weight loss of 50 pounds in last year. Follows with [facility] and has been off of Remicade treatment since April due to transportation issues. I ( lasha Hendricks MD) reviewed pt's H/P with pt, pt is still have abdominal pain sam-ileostomy, pt denies nausea, no vomiting, I reviewed labs and CT scan. Allergies Allergy/AdvReac Type Severity Reaction Status Date / Time codeine Allergy Severe SOB, Verified 11/27/18 07:17 NAUSEA -- MORPHINE OK, TAKES LORTAB AT HOME metronidazole Allergy Severe chest pain Verified 11/27/18 07:17 Cipro Allergy Unknown "I GET Verified 04/20/15 21:21 SICK AND CAN'T BREATHE RIGHT." ciprofloxacin Allergy Unknown "I GET Verified 11/27/18 07:17 SICK AND CAN'T BREATHE RIGHT." latex Allergy Unknown RASH Verified 11/27/18 07:17 Penicillins Allergy Unknown CHEST Unverified 11/27/18 13:19 TIGHTNESS ertapenem [From Invanz] AdvReac Severe Gastrointestinal Unverified 11/27/18 07:17 Upset prednisone AdvReac Intermediate Nausea Unverified 11/27/18 07:17 aspirin AdvReac Mild GI DISTRESS Verified 11/27/18 07:17 tramadol AdvReac Chest Unverified 11/27/18 07:17 Pain, N/V IRON INFUSIONS Allergy Unknown Chest Uncoded 11/27/18 07:17 tightness and SOB. Home Medications Home Medications Medication Instructions Recorded Confirmed Type Flintstones Gummies 1 tab PO QAM 09/23/18 11/27/18 History albuterol sulfate [Ventolin HFA] 2 puff INHALATION Q4 PRN 09/23/18 11/27/18 History gabapentin 300 mg PO HS 09/23/18 11/27/18 History quetiapine 25 mg PO BID 09/23/18 11/27/18 History quetiapine 200 mg PO HS 09/23/18 11/27/18 History sumatriptan succinate 50 mg PO UD PRN 09/23/18 11/27/18 History atenolol 12.5 mg PO QAM #0 tab 09/26/18 11/27/18 Rx Breo Ellipta 1 inh INHALATION QAM 11/02/18 11/27/18 History Remicade 100 mg IV Q8WK 11/02/18 11/27/18 History celecoxib 100 mg PO QAM 11/02/18 11/27/18 History dicyclomine 10 mg PO BID PRN 11/02/18 11/27/18 History mesalamine 1,600 mg PO TID 11/02/18 11/27/18 History multivitamin 1 tab PO QAM 11/02/18 11/27/18 History umeclidinium 1 inh INHALATION QAM 11/02/18 11/27/18 History warfarin [Coumadin] 1.5 mg PO SUTUTHSA 11/02/18 11/27/18 History escitalopram oxalate 10 mg PO QAM 11/15/18 11/27/18 History mirtazapine [Remeron] 15 mg PO QAM 11/15/18 11/27/18 History warfarin 3 mg PO MOWEFR 11/15/18 11/27/18 History guaifenesin 200 mg PO TID PRN #15 tab 11/21/18 11/27/18 Rx oxycodone 5 mg PO Q12H PRN #8 tab 11/21/18 11/27/18 Rx prazosin 2 mg PO HS 11/27/18 11/27/18 History Patient History Medical History Tobacco use disorder (Chronic) HTN (hypertension) (Chronic) On anticoagulant therapy (Chronic) History of pulmonary embolism (Chronic) COPD (chronic obstructive pulmonary disease) (Chronic) Hypertension (Chronic) Crohn's disease (Chronic) Tobacco use (Chronic) Family history of heart disease (Chronic) Surgical History History of hemicolectomy (Chronic) Ileostomy in place (Chronic) Family History Unknown Family history non-contributory Other Family history of heart disease Social History Preferred Language: Tam[place] Communication Ability: Effective Wash Helper Required: No Beliefs That Will Affect Care: None marital status: Current Living Situation: Spouse Feels Safe at Home: Yes Safety Concerns: Feels Safe At This Time Smoking Status: Current every day smoker Tobacco Type: cigarettes ; Cigarettes Per Day: 12 ; Second Hand Exposure: No ; Hx Alcohol Use: No Hx Substance Use: No Review of Systems Review of Systems: All systems reviewed & are unremarkable except as noted in HPI & below Physical Exam Constitutional: WD/WN, vitals as above + thin ENMT: external ear and nose normal, oropharynx normal Neck: trachea midline, no thyromegaly Respiratory: normal respiratory effort, lungs clear to auscultation Cardiovascular: RRR, no murmur, no edema Rate/Rhythm: regular rate and regular rhythm Gastrointestinal (Abdomen): normal bowel sounds, soft, nontender, no hepatosplenomegaly Percussion/Palpation: + abdomen tender and abdomen soft tenderness sam- ileostomy, some stool in the bag, no redness, no distend on abdomen, BS + Musculoskeletal: no cyanosis or clubbing, extremities motor strength 5/5 Skin: no rashes, warm and dry Neurologic: patellar DTR's 2+ bilat, sensation intact Psychiatric: A+Ox3, euthymic affect Orientation: alert and oriented x 3 Results & Data Vital Signs (Past 12 Hours) Vital Signs Temp Pulse Pulse Pulse Resp BP BP 11/27/18 12:18 36.7 C 87 18 93/57 L 11/27/18 11:50 68 18 104/57 L 11/27/18 09:15 71 20 87/56 L 11/27/18 07:48 11/27/18 07:47 81 21 102/75 11/27/18 06:25 36.9 C 92 H 16 108/68 Pulse Ox 11/27/18 12:18 99 11/27/18 11:50 99 11/27/18 09:15 99 11/27/18 07:48 88 L 11/27/18 07:47 94 11/27/18 06:25 95 Laboratory Results Abnormal lab results 11/27/18 11/27/18 11/27/18 Range/Units 07:19 07:19 07:19 WBC 14.02 H (4.8-10.8) K/uL RBC 4.04 L (4.2-5.4) M/uL Hgb 10.9 L (12.0-16.0) g/dL Hct 32.6 L (37-47) % Plt Count 605 H (130-400) K/uL Immature Gran # (Auto) 0.03 H (0.00-0.02) K/uL Neut # (Auto) 11.55 H (1.4-6.5) K/uL Lymph # (Auto) 1.12 L (1.2-3.4) K/uL [place] # (Auto) 1.05 H (0.11-0.59) K/uL PT 31.9 H (9.0-12.0) Seconds INR 3.4 H (0.9-1.1) BUN/Creatinine Ratio 22.1 H (10-20) Calcium 8.2 L (8.5-10.1) mg/dl AST 12 L (15-37) U/L ALT 8 L (12-78) U/L Albumin 2.4 L (3.4-5.0) gm/dl Globulin 4.6 H (2.5-4.0) gm/dl Albumin/Globulin Ratio 0.5 L (0.9-2) Diagnostic Findings ABDOMEN AND PELVIS CT WITH IV CONTRAST CT DOSE: 249.15 mGy.cm HISTORY: Right lower quadrant abdominal pain. TECHNIQUE: Multiaxial CT images of the abdomen and pelvis were performed following the use of intravenous contrast. A dose lowering technique was utilized adhering to the principles of ALARA. COMPARISON STUDY: Abdomen and pelvis CT 11/15/2018. FINDINGS: Emphysema again noted at the lung bases. No pneumoperitoneum. No pneumatosis. No suspicious lytic are blastic osseous lesions. The liver, gallbladder, adrenal glands, pancreas, and right kidney are unremarkable. There is a punctate stone within the lower pole the left kidney. No hydronephrosis. Normal caliber abdominal aorta. No retroperitoneal lymphadenopathy. The bladder is distended. The uterus and bilateral adnexa are unremarkable. A rectal there are mild are noted. There are again noted postoperative changes consistent with a subtotal colectomy and right lower quadrant ostomy. Mucosal hyperenhancement and thickening within the distal 8 cm of the ileal loop extending to the ostomy site. This results in narrowing of the distal loop within the ostomy site. The long segment of bowel proximal to this ostomy site is mildly dilated and fluid- filled within the right lower quadrant measuring up to 3.2 cm in diameter. Therefore, this favors a partial small bowel obstruction due to the thickening at the ostomy site. 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 The sinus tract also extends into the adjacent right rectus sheath. There is a new 2.5 x 1.6 cm peripheral enhancing fluid collection medial to and connecting to the sinus tracts consistent with abscess. Redemonstration of the focal defect within the posterior wall of the vagina best seen on image 383. This measures 5 mm in diameter. IMPRESSION: 1. Postoperative changes from prior subtotal colectomy with a right lower quadrant ostomy. There is hyperenhancement and thickening at the distal 8 cm of small bowel extending to the ostomy with mild dilatation proximal to the site. Therefore, this favors a partial small bowel obstruction with the transition point at the thickened ostomy site. 2. Redemonstration of the irregular multidirectional fistula within the right lower quadrant adjacent to the ostomy site with sinus tracts seen extending to the right rectus sheath and adjacent loops of small bowel. There has been interval development of a 2.5 x 1.6 cm peripheral enhancing fluid collection medial to and connecting to the sinus tract consistent with an abscess. 3. Additional findings as described above.
[2018-11-27] MEDS ORDERED: BREO ELLIPTA - ORDER AWAITING ACTION SCH (16:00)
[2018-11-27] MEDS ORDERED: SODIUM CHLORIDE 0.9% 1000ML 500 ML IV ONE (16:03)
--- NOTE | 2018-11-27 16:10 | Discharge Summary ---
Date of Service November 27, 2018 Admission HPI Per Admitting Provider This is a 38-year-old female with a PMH of Crohn's disease (s/p R hemicolectomy in 2009, s/p total colectomy with ostomy in 2013), history of PE on Coumadin, COPD, bipolar disorder, HTN, tobacco use disorder and other medical problems listed below who presents with abdominal cramping. 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 Was discharged with PICC line on November 21. Reportedly took 1 dose of ertapenem after discharge home but felt lightheaded and nauseous so she stopped. Has had cramping pain in RLQ that is constant and not made better with defecation. Went to [facility] for pain and was given dilaudid there with some relief. Home oxycodone has not been relieving pain. Has loose stool in colostomy and has had to empty approximately 4-5 times a day, when at baseline she empties 2-3x/day. Some nausea but no vomiting. Endorses lightheadedness yesterday but none today. Has also had c entral chest pain that is more painful to palpation and she feels is related to panic attacks. No fever, chills, cough, palpitations, shortness of breath, vomiting or dysuria. Endorses weight loss of 50 pounds in last year. Follows with [facility] and has been off of Remicade treatment since April due to transportation issues. Admission Exam Per Admitting Provider General Appearance: WD/WN, vitals as above, NAD, appears thin, chronically ill Head: normocephalic, atraumatic Eyes: normal inspection, PERRL, conjunctivae normal, anicteric sclerae ENT: external ear and nose normal, oropharynx normal Neck: trachea midline, no thyromegaly normal visual inspection Respiratory: normal respiratory effort, decreased breath sounds bilaterally, no wheeze, rales, rhonchi. Normal insp/exp effort, no accessory muscle use Cardiovascular: regular rate, rhythm, no murmur, normal peripheral pulses. Vessels: no JVD or carotid bruit Chest: normal inspection of chest. Right chest tender to palpation Abdomen/GI: Decreased bowel sounds, soft, RLQ tenderness to palpation, no guarding, no hepatosplenomegaly, +ostomy, skin irritation around ostomy site Extremities/Musculoskelatal: no cyanosis or clubbing, extremities motor strength 5/5 Neurologic: PERRL, EOMI, accommodation nl, no face palsy, no dysarthria CN's II-XI intact bilaterally and moves all extremities Psychiatric: A+Ox3, anxious mood Skin: no rashes, normal color, warm/dry Principal Diagnosis Discharge Information Discharge Diagnosis Partial small bowel obstruction fistula with intra-abdominal abscess Increased ostomy output: r/o c DIFF Discharge Goals Decrease discomfort,Improve disease control, Improve function Discharge Activity Limitations Per instructions/follow-up Discharge Data Allergies Allergy/AdvReac Type Severity Reaction Status Date / Time codeine Allergy Severe SOB, Verified 11/27/18 07:17 NAUSEA -- MORPHINE OK, TAKES LORTAB AT HOME metronidazole Allergy Severe chest pain Verified 11/27/18 07:17 Cipro Allergy Unknown "I GET Verified 04/20/15 21:21 SICK AND CAN'T BREATHE RIGHT." ciprofloxacin Allergy Unknown "I GET Verified 11/27/18 07:17 SICK AND CAN'T BREATHE RIGHT." latex Allergy Unknown RASH Verified 11/27/18 07:17 Penicillins Allergy Unknown CHEST Unverified 11/27/18 13:19 TIGHTNESS ertapenem [From Invanz] AdvReac Severe Gastrointestinal Unverified 11/27/18 07:17 Upset prednisone AdvReac Intermediate Nausea Unverified 11/27/18 07:17 aspirin AdvReac Mild GI DISTRESS Verified 11/27/18 07:17 tramadol AdvReac Chest Unverified 11/27/18 07:17 Pain, N/V IRON INFUSIONS Allergy Unknown Chest Uncoded 11/27/18 07:17 tightness and SOB. Consultations 11/27/18 10:10 ED Decision to Admit Stat 11/27/18 12:27 Consult General Surgery Routine Consult Infectious Diseases Routine 11/27/18 15:48 Burn CD for patient Stat 11/27/18 16:03 Burn CD for patient Routine Procedures Performed CT ABD: 1. Postoperative changes from prior subtotal colectomy with a right lower quadrant ostomy. There is hyperenhancement and thickening at the distal 8 cm of small bowel extending to the ostomy with mild dilatation proximal to the site. Therefore, this favors a partial small bowel obstruction with the transition point at the thickened ostomy site. 2. Redemonstration of the irregular multidirectional fistula within the right lower quadrant adjacent to the ostomy site with sinus tracts seen extending to the right rectus sheath and adjacent loops of small bowel. There has been interval development of a 2.5 x 1.6 cm peripheral enhancing fluid collection medial to and connecting to the sinus tract consistent with an abscess. 3. Additional findings as described above. Ordered Studies 11/27/18 06:43 CT abd pelvis IV con only Stat Hospital Course (1) Intra-abdominal abscess: This is a 38-year-old female with a PMH of Crohn's disease (s/p R hemicolectomy in 2008, s/p total colectomy with ostomy in 2013), history of PE on Coumadin, COPD, bipolar disorder, HTN, tobacco use disorder and other medical problems listed below who presents with abdominal cramping. 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 Self- removed PICC line -Afebrile today, leukocytosis of 14, electrolytes stable, lactate within normal limits at 0.6 -CT abd/pelvis with interval development of a 2.5 x 1.6 cm peripheral enhancing fluid collection medial to and connecting to the sinus tract consistent with an abscess -Given 1 dose of ertapenem in ED. Discussed antibiotic allergies with pharmacy- plan to proceed with Zosyn -General surgery consult for abscess, partial small bowel obstruction -Routine ID consult -Pain control (2) Crohn's disease: History of Crohn's disease with fistula, (s/p R hemicolectomy in 2008, s/p total colectomy with ostomy in 2013) -Has not been on Remicade since April due to transport issues. Has plans to resume -Continue mesalamine (3) History of pulmonary embolism: Diagnosed with PE in August 2018, on Coumadin -Initial INR 3.4. Will hold evening dose in case need for intervention -Monitor daily INR (4) Chest pain: Right-sided chest wall tenderness, exacerbated by palpation -Atypical in nature, does not appear cardiac -Will order EKG, trend troponin for completeness (5) HTN (hypertension): Blood pressure on lower side since admission -We will plan to continue atenolol with hold parameters (6) COPD (chronic obstructive pulmonary disease): At respiratory baseline. Continue home inhalers Chronic Oxygen Dependency--Uses 2 liters of oxygen PRN (7) Mood disorder: Continue Seroquel, Remeron, Lexapro (8) Tobacco use disorder: Offered nicotine patch, patient denied DVT Ppx: on coumadin Code status: FULL PCP: Richi Dispo: Observation med tele. Plan to return home once medically stable. Patient seen in collaboration with Dr. Kumar. Please see addendum. Patient is a 38-year-old female with history of fistulas and Crohn's disease S/P hemicolectomy then subsequent subtotal colectomy in 2013 with ileostomy creation, COPD on chronic oxygen dependency, bipolar disorder, tobacco use disorder, H/O PE on chronic anticoagulation and other problems presents with history of abdominal cramping, increased ostomy output--nonbloody, clear watery, right-sided sharp chest pain which she attributes to panic attacks, right lower quadrant abdominal pain, intermittent dizziness, nausea but no vomiting. Patient was recently admitted at [facility] and was advised to continue IV ertapenem for 3 weeks for small bowel fistulous disease leading to myositis. Patient states that she could not complete the IV antibiotic course secondary to intolerance. She admits to weight loss of about 50 pounds in last 1 year. Physical Exam: Vitals signs as noted above General Appearance:Thin, frail, chronic ill appearing, no apparent distress Head: normocephalic, Atraumatic Eyes: normal inspection, EOMI Neck: supple, Trachea midline Respiratory/Chest: Decreased breath sounds, CTA, Right chest tender on palpation Cardiovascular: S1, S2, No murmur Abdomen/GI:Soft, RLQ tender, decreased Bowel sounds, +Ostomy, desquamation Extremities/Musculoskelatal:normal inspection, no edema Neurologic/Psych:AAOX3, grossly no focal neurological deficits Skin: normal color, warm Partial small bowel obstruction Intra-abdominal abscess Increased Ostomy Output H/O Crohn's disease S/P hemicolectomy then subsequent subtotal colectomy in 2013 with ileostomy creation N.p.o. for now IV fluids, IV Zosyn Check MRSA screen Consulted general surgery, ID Eventually we may need colorectal surgery evaluation Check stool for C diff Cultures obtained Atypical chest Pain Reproducible on exam Likely due to anxiety Check EKG, Troponin I personally reviewed the record. Patient is interviewed and examined at bedside. Patient's care is coordinated with Keyonna Peralta PA-C. Please refer to the documentation above for details of patient's presentation and for discussion of other issues. On further discussing with general surgery Dr. Hendricks and pickling machine operator, patient was thought to have a parastomal hernia leading to partial small bowel obstruction and has fistula with abscess and would require colorectal surgery evaluation and possible procedure for further management. Patient is accepted by colorectal surgery, Dr. Justus Hutchinson at [facility]. Patient is going to be transferred to [facility] for further management. Patient understands and agrees with the plan. Total Time Total Time Spent Total Time Spent (In Minutes): 43 minutes Total Time Includes: Examination of the Patient, Discharge Planning, Medication Reconciliation, Communication With Other Providers and Other Discharge Plan Discharge Items Patient Disposition: Transfer Acute Care Hospital Reason For Visit: INTRA-ABD ABSCESS Discharge Diagnosis: Partial small bowel obstruction fistula with intra-abdominal abscess Increased ostomy output: r/o c DIFF Discharge Goals: Decrease discomfort, Improve disease control and Improve function Activity: Per 'Additional Instructions' section Exercise/Sports: Wait until after follow-up appointment Non-emergency contact: Primary Care Provider and Surgeon Call non-emergency contact if: you have any medication questions, your symptoms worsen, your pain is not controlled, your pain is worsening, your pain is unusual for you, your pain is concerning for you and you have a fever Follow-up/Referrals: Kathy Stoddard, [Primary Care Provider] - Diet: See below Diet Comment: NPO for now Addtl Provider Instructions: Follow-up with your colorectal surgeon Dr. Justus Hutchinson at [facility] upon being transferred to [facility] Follow-up with your primary care physician ; Visual Education Director upon discharge from the hospital Seek immediate medical attention if your symptoms reoccur or worsen Your started on IV Zosyn, IV fluids while hospitalized at [facility]. Your Coumadin is held currently for possible procedure. Your INR is supratherapeutic at 3.4 today. Prescriptions: Continued quetiapine 25 mg tablet 25 mg PO BID RF: 0 quetiapine 200 mg tablet 200 mg PO HS RF: 0 sumatriptan succinate 50 mg tablet 50 mg PO UD PRN (Reason: Migraine Headache) RF: 0 gabapentin 300 mg capsule 300 mg PO HS RF: 0 albuterol sulfate [Ventolin HFA] 90 mcg/actuation HFA aerosol inhaler 2 puff inhalation Q4 PRN (Reason: cough,sob,wheezing) RF: 0 Flintstones Gummies Tablet,Chewable 1 tab PO QAM RF: 0 atenolol 25 mg tablet 12.5 mg PO QAM Qty: 0 RF: 0 prazosin 2 mg capsule 2 mg PO HS RF: 0 warfarin [Coumadin] 3 mg Tablet 1.5 mg PO SUTUTHSA RF: 0 multivitamin Tablet 1 tab PO QAM RF: 0 celecoxib 100 mg Capsule 100 mg PO QAM RF: 0 Breo Ellipta 100-25 mcg/dose Blister With Device 1 inh INHALATION QAM RF: 0 umeclidinium 62.5 mcg/actuation Blister With Device 1 inh INHALATION QAM RF: 0 mesalamine 400 mg Capsule (With Del Rel Tablets) 1,600 mg PO TID RF: 0 Remicade 100 mg Recon Soln 100 mg IV Q8WK RF: 0 dicyclomine 10 mg capsule 10 mg PO BID PRN (Reason: Abdominal Pain) RF: 0 escitalopram oxalate 10 mg tablet 10 mg PO QAM RF: 0 warfarin 3 mg Tablet 3 mg PO MOWEFR RF: 0 mirtazapine [Remeron] 15 mg Tablet 15 mg PO QAM RF: 0 guaifenesin 200 mg tablet 200 mg PO TID PRN (Reason: congestion/cough) Qty: 15 RF: 0 oxycodone 5 mg Tablet 5 mg PO Q12H PRN (Reason: pain) Qty: 8 RF: 0 Stand-Alone Forms: Call Back Authorization, [facility] Discharge Orders: Discharge Order (Routine); Ordered 11/27/18 Ordered By: Tom Kumar Admission Data Admit Date/Time: 11/27/18 10:51 Attending Provider: Tee Herman Admit Provider: Tom Kumar Primary Care Provider: Kathy Stoddard Other Providers: Tom Kumar ; Valeri Connor ; Lashaun Hendricks Service: Telemetry Medical Other Pending Studies at Discharge: Yes Studies:: Blood cultures, stool studies
[2018-11-27] MEDS ORDERED: PIPERACILLIN/TAZOBACTAM 3.375 GM in DEXTROSE 5% 100 ML IV SCH (18:00)
[2018-11-27] MEDS ORDERED: PRAZOSIN HCL 1 MG CAP PO SCH (21:00)
[2018-11-27] MEDS ORDERED: GABAPENTIN 300 MG CAP PO SCH (21:00)
[2018-11-27] MEDS ORDERED: QUETIAPINE FUMARATE 200 MG TAB PO SCH (21:00)
[2018-11-27] MEDS ORDERED: QUETIAPINE FUMARATE 25 MG TABLET PO SCH (21:00)
[2018-11-28] MEDS ORDERED: FLINTSTONES COMPLETE CHEWABLE TAB PO SCH (09:00)
[2018-11-28] MEDS ORDERED: ESCITALOPRAM OXALATE 10 MG TAB PO SCH (09:00)
[2018-11-28] MEDS ORDERED: ATENOLOL 25 MG TABLET PO SCH (09:00)
[2018-11-28] MEDS ORDERED: MIRTAZAPINE TAB 15 MG TAB PO SCH (09:00)
== END 2018-11-27 20:41 | disposition short-term general hospital (02) | DRG 386 ==
LOC: ED 06:20 → 2W 06:20